=== PATIENT | female | born 1975 | race Caucasian/White ===

== ENCOUNTER → 2016-12-15 | Outpatient (REF) | payer OTHER, MEDICAID ==
[~2016-12-15] MED LIST: ACET50TA PO; CIPR500T89 PO; DIAB2.5T PO; GLYBERIDE PO; IBUP80TA PO; INSUN SC; MOTR200T44 PO; NOVOINJ12 SC; PRENTAB16 PO; SERT-141 PO; TRAZ25TA PO; VITAPRTA PO; XANA0.5T PO; ZOLO50TA PO
== END ==
LOC: M LAB REF 12:44
PROVIDERS: ATTEND Surgery
DX: D23.61 Other benign neoplasm of skin of right upper limb, including shoulder (principal); D23.71 Other benign neoplasm of skin of right lower limb, including hip

== ENCOUNTER → 2017-01-12 | Outpatient (REF) | payer OTHER, MEDICAID ==
[~2017-01-12] MED LIST changes: -SERT-141 PO; +SERT50TA PO
== END ==
LOC: M LAB REF 09:23
PROVIDERS: ATTEND Surgery
DX: D23.62 Other benign neoplasm of skin of left upper limb, including shoulder (principal)

== ENCOUNTER 2018-09-06 12:44 | Emergency (ER) | payer OTHER, BC, SELFPAY, MEDICAID ==
[2018-09-06] MEDS: LIDOCAINE 2% MDV 20 ML VIAL SC (14:30)
== END 2018-09-06 16:03 | disposition home or self-care (01) ==
LOC: M ED 12:44
DX: S61.012A Laceration without foreign body of left thumb without damage to nail, initial encounter (principal); S63.522A Sprain of radiocarpal joint of left wrist, initial encounter; W55.22XA Struck by cow, initial encounter; Y92.89 Other specified places as the place of occurrence of the external cause; Y99.0 Civilian activity done for income or pay; E11.9 Type 2 diabetes mellitus without complications; F41.9 Anxiety disorder, unspecified; I25.2 Old myocardial infarction; Z88.0 Allergy status to penicillin; Z88.2 Allergy status to sulfonamides; Z88.6 Allergy status to analgesic agent; Z88.5 Allergy status to narcotic agent; Z79.899 Other long term (current) drug therapy
CPT/HCPCS: 73110

== ENCOUNTER → 2020-03-11 | Outpatient (CLI) | payer OTHER, SELFPAY ==
[~2020-03-11] MED LIST changes: -ACET50TA PO; +CIPR-249 PO; -CIPR500T89 PO; +CLEO300C2 PO; +MAPA500T2 PO; +SERT-141 PO; -SERT50TA PO; +TRAZ1TAB6 PO; -TRAZ25TA PO; +ZOLO50TA
== END ==
LOC: M LABSMTC 11:32
PROVIDERS: ATTEND Family Medicine
DX: Z11.59 Encounter for screening for other viral diseases (principal); Z20.828 Contact with and (suspected) exposure to other viral communicable diseases
CPT/HCPCS: C9803; U0003

== ENCOUNTER → 2020-03-24 | Outpatient (REF) | LOC: M LAB 10:35 | PROVIDERS: ATTEND Nurse Practitioner Adult Health | DX: Z00.00 Encounter for general adult medical examination without abnormal findings (principal) ==

== ENCOUNTER 2020-04-05 23:46 | Emergency (ER) | payer SELFPAY ==
[~2020-04-05] VITALS: Ht 162.6 cm; Wt 75.0 kg
[2020-04-06 00:57] LABS: BASO % 0.4 % (0.0-1.0); EOS # 0.2 10^3/uL (0.0-0.5); EOS % 2.6 % (0.0-3.0); HEMATOCRIT 37.8 % (36.0-47.0); HEMOGLOBIN 12.5 g/dl (12.0-15.5); LYMPH # 1.9 10^3/uL (1.5-5.0); LYMPH % 23.8 % (24.0-44.0); MEAN CORPUSCULAR HEMOGLOBIN 28.9 pg (27.0-33.0); MEAN CORPUSCULAR HGB CONC 33.1 g/dl (32.0-36.5); MEAN CORPUSCULAR VOLUME 87.3 fl (80.0-96.0); MONO # 1.1 10^3/uL (0.0-0.8); MONO % 13.4 % (0.0-5.0); NEUTROPHILS # 4.7 10^3/uL (1.5-8.5); NEUTROPHILS % 59.5 % (36.0-66.0); PLATELET COUNT, AUTOMATED 299 10^3/uL (150-450); RED BLOOD COUNT 4.33 10^6/uL (4.00-5.40); WHITE BLOOD COUNT 7.8 10^3/uL (4.0-10.0)
[2020-04-06 01:17] LABS: HCG, SERUM QUALITATIVE NEGATIVE (NEGATIVE)
[2020-04-06 01:26] LABS: ALBUMIN 3.5 GM/DL (3.2-5.2); ALT/SGPT 25 U/L (12-78); BILIRUBIN,DIRECT < 0.1 MG/DL (0.0-0.2); BILIRUBIN,TOTAL 0.3 MG/DL (0.2-1.0); BLOOD UREA NITROGEN 14 MG/DL (7-18); CALCIUM LEVEL 8.2 MG/DL (8.5-10.1); CARBON DIOXIDE LEVEL 26 MEQ/L (21-32); CHLORIDE LEVEL 107 MEQ/L (98-107); CREATININE FOR GFR 0.82 MG/DL (0.55-1.30); GLOMERULAR FILTRATION RATE > 60.0 (>58); GLUCOSE, FASTING 111 MG/DL (70-100); LIPASE 53 U/L (73-393); POTASSIUM SERUM 3.7 MEQ/L (3.5-5.1); SODIUM LEVEL 139 MEQ/L (136-145); TOTAL PROTEIN 6.6 GM/DL (6.4-8.2)
[2020-04-06] MEDS ORDERED: NS 1,000 ML IV ONE (03:45)
[2020-04-06] MEDS ORDERED: KETOROLAC 30 MG/ML 1ML VIAL IV ONE (03:45)
[2020-04-06] MEDS ORDERED: ISOVUE-370 76% 100ML VIAL As Ordered ONE (03:50)
--- NOTE | 2020-04-06 04:22 | REPVR ---
PROCEDURE INFORMATION: Exam: CT Abdomen And Pelvis With Contrast Exam date and time: 04/06/2020 3:54 AM Age: 44 years old Clinical indication: Abdominal pain; Additional info: Rlq pain TECHNIQUE: Imaging protocol: Computed tomography of the abdomen and pelvis with intravenous contrast. Radiation optimization: All CT scans at this facility use at least one of these dose optimization techniques: automated exposure control; mA and/or kV adjustment per patient size (includes targeted exams where dose is matched to clinical indication); or iterative reconstruction. Contrast material: ISO 370; Contrast volume: 100 ml; Contrast route: IV; COMPARISON: US OBS FOLLOW UP OR REPEAT 10/27/2015 9:49 AM FINDINGS: Lungs: Slight bibasilar interstitial prominence. Liver: Normal. No mass. Gallbladder and bile ducts: The gallbladder is contracted with no stones. Pancreas: Normal. No ductal dilation. Spleen: Normal. No splenomegaly. Adrenals: Normal. No mass. Kidneys and ureters: Nonobstructing bilateral renal calculi. There is a right renal cyst measuring 9 mm which is difficult to characterize due to small size. Stomach and bowel: Unremarkable. No obstruction. No mucosal thickening. Appendix: A normal appendix is seen. Intraperitoneal space: Unremarkable. No free air. No significant fluid collection. Vasculature: Unremarkable. No abdominal aortic aneurysm. Lymph nodes: Unremarkable. No enlarged lymph nodes. Bladder: Unremarkable as visualized. Reproductive: Left ovarian cyst measuring 3.2 x 3.4 x 2.9 cm. Bones/joints: Unremarkable. No acute fracture. Soft tissues: Unremarkable. IMPRESSION: 1. Nonobstructing bilateral renal calculi. 2. Left ovarian cyst measuring 3.2 x 3.4 x 2.[address] Otherwise negative [address] abdomen/pelvis. A normal appendix is seen. COMMENTS: Consistent with the [employer]'s Incidental Findings Committee white paper (J Am Dimitris Radiol 2018): Any incidental renal lesion less than 1.0 cm or classified as too small to characterize, or any incidental cystic renal lesion characterized as simple-appearing, is likely benign. No follow-up imaging is recommended for these lesions per consensus recommendations based on imaging criteria. Electronically signed by: Lexx Albarran On 04/06/2020 04:21:36 AM
[2020-04-06 06:09] VITALS: BP 117/58
== END 2020-04-06 06:11 | disposition home or self-care (01) ==
LOC: M ED 23:46
DX: R10.31 Right lower quadrant pain (principal); N83.292 Other ovarian cyst, left side; N20.0 Calculus of kidney; Z79.899 Other long term (current) drug therapy; Z88.0 Allergy status to penicillin; Z88.2 Allergy status to sulfonamides; Z88.6 Allergy status to analgesic agent; Z88.5 Allergy status to narcotic agent
CPT/HCPCS: 74177; 80053; 81001; 82248; 83690; 84703; 85025; 96360; 96361; 99284; Q9967

== ENCOUNTER 2020-07-07 12:50 | Observation (INO) | payer SELFPAY ==
[~2020-07-07] VITALS: Ht 162.6 cm; Wt 78.1 kg
--- NOTE | 2020-07-07 13:30 | REPVR ---
PROCEDURE INFORMATION: Exam: CT Head Without Contrast Exam date and time: 07/07/2020 1:16 PM Age: 45 years old Clinical indication: Altered mental status/memory loss; Additional info: AMS TECHNIQUE: Imaging protocol: Computed tomography of the head without contrast. Radiation optimization: All CT scans at this facility use at least one of these dose optimization techniques: automated exposure control; mA and/or kV adjustment per patient size (includes targeted exams where dose is matched to clinical indication); or iterative reconstruction. Other technique: STROKE PROTOCOL was implemented. COMPARISON: No relevant prior studies available. FINDINGS: Brain: Normal. No hemorrhage. Unremarkable white matter. No mass effect. Ventricles: Normal. No ventriculomegaly. Bones/joints: Unremarkable. No acute fracture. Sinuses: There is mild right maxillary sinus mucosal thickening. Mastoid air cells: Visualized mastoid air cells are well aerated. Soft tissues: Unremarkable. IMPRESSION: No acute hemorrhage or edema. ASSESSMENT: ASPECTS ([place] Stroke Program Early CT Score) is 10. Electronically signed by: Malini Varghese On 07/07/2020 13:30:13 PM
[2020-07-07 13:39] VITALS: BP 138/87
[2020-07-07 14:01] LABS: BASO # 0.1 10^3/uL (0.0-0.2); BASO % 0.5 % (0.0-1.0); EOS # 0.1 10^3/uL (0.0-0.5); EOS % 1.3 % (0.0-3.0); HEMATOCRIT 39.9 % (36.0-47.0); HEMOGLOBIN 13.3 g/dl (12.0-15.5); LYMPH # 1.8 10^3/uL (1.5-5.0); LYMPH % 18.8 % (24.0-44.0); MEAN CORPUSCULAR HEMOGLOBIN 29.3 pg (27.0-33.0); MEAN CORPUSCULAR HGB CONC 33.3 g/dl (32.0-36.5); MEAN CORPUSCULAR VOLUME 87.9 fl (80.0-96.0); MONO # 0.8 10^3/uL (0.0-0.8); MONO % 8.7 % (0.0-5.0); NEUTROPHILS # 6.8 10^3/uL (1.5-8.5); NEUTROPHILS % 70.3 % (36.0-66.0); PLATELET COUNT, AUTOMATED 377 10^3/uL (150-450); RED BLOOD COUNT 4.54 10^6/uL (4.00-5.40); WHITE BLOOD COUNT 9.7 10^3/uL (4.0-10.0)
[2020-07-07 14:15] LABS: PROTHROMBIN TIME 13.4 SECONDS (11.8-14.0)
[2020-07-07 14:16] LABS: PARTIAL THROMBOPLASTIN TIME 27.5 SECONDS (25.0-38.4)
[2020-07-07] MEDS ORDERED: ISOVUE-370 76% 100ML VIAL As Ordered ONE (14:16)
[2020-07-07 14:25] LABS: BLOOD UREA NITROGEN 10 MG/DL (7-18); CARBON DIOXIDE LEVEL 24 MEQ/L (21-32); CHLORIDE LEVEL 109 MEQ/L (98-107); CK-MB VALUE MASS < 1.0 NG/ML (<3.6); CPK CREATINE PHOSPHOKINASE 72 U/L (26-192); GLOMERULAR FILTRATION RATE > 60.0 (>58); GLUCOSE, FASTING 115 MG/DL (70-100); MB/CK RELATIVE INDEX 1.39 (< OR =4); POTASSIUM SERUM 3.7 MEQ/L (3.5-5.1); SODIUM LEVEL 141 MEQ/L (136-145); TROPONIN I < 0.02 NG/ML (< 0.10)
--- NOTE | 2020-07-07 14:41 | REPVR ---
PROCEDURE INFORMATION: Exam: CT Angiography Head With Contrast Exam date and time: 07/07/2020 2:22 PM Age: 45 years old Clinical indication: Other: Neuro; Additional info: Neuro symptoms TECHNIQUE: Imaging protocol: Computed tomography angiography of the head with intravenous contrast. 3D rendering (Not supervised by radiologist): MIP and/or 3D reconstructed images were created by the technologist. Radiation optimization: All CT scans at this facility use at least one of these dose optimization techniques: automated exposure control; mA and/or kV adjustment per patient size (includes targeted exams where dose is matched to clinical indication); or iterative reconstruction. Contrast material: ISOVUE 370; Contrast volume: 100 ml; Contrast route: INTRAVENOUS (IV); COMPARISON: CT Head without contrast 07/07/2020 1:11 PM FINDINGS: ANTERIOR CIRCULATION: Right internal carotid artery: Unremarkable. Intracranial segment is patent with no significant stenosis. No aneurysm. Right middle cerebral artery: Unremarkable. No occlusion or significant stenosis. No aneurysm. Right anterior cerebral artery: Unremarkable. No occlusion or significant stenosis. No aneurysm. Left internal carotid artery: Unremarkable. Intracranial segment is patent with no significant stenosis. No aneurysm. Left middle cerebral artery: Unremarkable. No occlusion or significant stenosis. No aneurysm. Left anterior cerebral artery: Unremarkable. No occlusion or significant stenosis. No aneurysm. POSTERIOR CIRCULATION: Right vertebral artery: Unremarkable. No occlusion or significant stenosis. No aneurysm. Left vertebral artery: The left vertebral artery is dominant. No occlusion or significant stenosis. No aneurysm. Basilar artery: Unremarkable. No occlusion or significant stenosis. No aneurysm. Right posterior cerebral artery: Unremarkable. No occlusion or significant stenosis. No aneurysm. Left posterior cerebral artery: Unremarkable. No occlusion or significant stenosis. No aneurysm. IMPRESSION: No large vessel stenosis or occlusion. Electronically signed by: Malini Varghese On 07/07/2020 14:41:07 PM
--- NOTE | 2020-07-07 14:46 | REPVR ---
PROCEDURE INFORMATION: Exam: CT Angiography Neck With Contrast Exam date and time: 07/07/2020 2:22 PM Age: 45 years old Clinical indication: Other: Neuro; Additional info: Neuro symptoms TECHNIQUE: Imaging protocol: Computed tomography angiography of the neck with intravenous contrast. 3D rendering (Not supervised by radiologist): MIP and/or 3D reconstructed images were created by the technologist. Radiation optimization: All CT scans at this facility use at least one of these dose optimization techniques: automated exposure control; mA and/or kV adjustment per patient size (includes targeted exams where dose is matched to clinical indication); or iterative reconstruction. Contrast material: ISOVUE 370; Contrast volume: 100 ml; Contrast route: INTRAVENOUS (IV); COMPARISON: No relevant prior studies available. FINDINGS: Right common carotid artery: No stenosis. No dissection or occlusion. Right internal carotid artery: No stenosis of the extracranial segment. No dissection or occlusion. Right external carotid artery: No occlusion or stenosis of the origin. Right vertebral artery: The right vertebral artery is diffusely diminutive, presumably a normal anatomic variant. There is suspected occlusion of the right distal cervical vertebral artery at the C1/C2 level. Left common carotid artery: No stenosis. No dissection or occlusion. Left internal carotid artery: No stenosis of the extracranial segment. No dissection or occlusion. Left external carotid artery: No occlusion or stenosis of the origin. Left vertebral artery: The left vertebral artery is dominant. Other vasculature: There is some recanalization of the will cervical and intradural portions. The distal intradural segment is not well visualized. But this could potentially reflect small vessel caliber. Bones/joints: No acute fracture. Soft tissues: Normal. No significant soft tissue swelling. IMPRESSION: Diminutive right vertebral artery is presumably a normal anatomic variant. There is apparent occlusion of the distal cervical vertebral artery with some recanalization at the C1 level. There may be occlusion of the distal intradural vertebral artery versus artifact. REFERENCES: NASCET CRITERIA. The degree of internal carotid artery stenosis is based on NASCET criteria. Normal is no stenosis. Mild is less than 50% stenosis. Moderate is 50-69% stenosis. Severe is 70% to 99% stenosis. Total occlusion is no detectable patent lumen. Electronically signed by: Malini Varghese On 07/07/2020 14:46:05 PM
--- NOTE | 2020-07-07 15:31 | REPVR ---
PROCEDURE INFORMATION: Exam: XR Chest, 1 View Exam date and time: 07/07/2020 3:10 PM Age: 45 years old Clinical indication: Other: Question CVA TECHNIQUE: Imaging protocol: XR of the chest Views: 1 view. COMPARISON: No relevant prior studies available. FINDINGS: Lungs: A number of small subsegmental atelectases are present in the lateral left lung base, otherwise both lungs are relatively well-aerated. Pleural space: Unremarkable. No pleural effusion. No pneumothorax. Heart/Mediastinum: The heart size is normal. Bones/joints: Unremarkable. IMPRESSION: 1. A number of small subsegmental atelectases are present in the lateral left lung base, otherwise both lungs are relatively well-aerated. 2. The heart size is normal. Electronically signed by: Kosta Arciniega On 07/07/2020 15:31:17 PM
[2020-07-07] MEDS ORDERED: SERT-138 PO (16:38)
[2020-07-07] MEDS ORDERED: CLOPIDOGREL 75 MG TAB PO ONE (16:45)
[2020-07-07] MEDS ORDERED: ACETAMINOPHEN TAB 650MG DOSE (2X325MG) PO PRN (17:15)
--- NOTE | 2020-07-07 17:33 | HPEPDOC ---
[facility] Medical History & Physical Date of Admission Jul 07, 2020 Date of Service: Jul 07, 2020 History and Physical Chief complaint: Who presented to the ER with stuttering speech History of present illness: Patient is a 45 year old female with a PMHx of Prior history of DM2 (s/p insulin), Depression / Anxiety, Hx of Renal stones (s/p ureteral stents) who presented to the ER after experiencing stuttering of her speech this morning. Patient noted that over the last 2 days she has been having twitching of her RUE extremity that progressed down to her RLE, then LLE and neck. Patient continued her day until today she began to have stuttering of her speech and difficulty expressing herself. 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 Patient had a CT scan completed which was non-revealing for hemorrhage / acute findings. Hospitalist service was contacted for admission. Currently patient denies any headache, nausea, vomiting, chest pain, shortness of breath, abdominal pain, constipation, diarrhea or urinary discomfort. They deny any recent fevers / chills. Patient notes their appetite is normal. Deny any changes in weight. 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 Review of Systems: 10 point review of systems complete, all negative otherwise stated in HPI Physical exam: - Vitals: BP [138/87], HR [94], RR [16], Sat [100%RA], Temp [98.2F] - General: Lying in bed, Speaking in full sentences, but stuttering / speaking slow, AAOx3 - HEENT: NC, AT, PERRLA - CVS: RRR, +S1S2 - Lungs: Fair air entry bilaterally, No appreciable wheezing / rales / rhonchi - Abdomen: Soft, Non-distended, Non-tender - Extremities No lower extremity edema, No calf tenderness - Neuro: 4/5 strength at RUE / RLE, 5/5 at LUE and LLE - Skin: No visible rashes Assessment and Plan: RUE & RLE weakness / twitching / stuttered speech - possibly 2/2 CVA, possibly 2/2 seizure? - Patient presented to the ER with stuttering of speech and 2 day history of twitching - Currently has weakness of RUE/RLE at 4/5 - EKG reviewed; Troponin x 1 set negative; will trend - CT head 07/07: No acute hemorrhage or edema. - CTA head 07/07: No large vessel stenosis or occlusion. - CTA neck 07/07: Diminutive right vertebral artery is presumably a normal anatomic variant. There is apparent occlusion of the distal cervical vertebral artery with some recanalization at the C1 level. There may be occlusion of the distal intradural vertebral artery versus artifact. - Will get MRI / MRA brain, Duplex carotid, ECHO, Telemetry monitoring, EEG, Cardiac risk profile - Will c/w Plavix and start Statin - Will get PT / OT / ARU screen - Will consult neuro based on MRI results Atelectasis - CXR 07/07: 1. A number of small subsegmental atelectases are present in the lateral left lung base, otherwise both lungs are relatively well-aerated. 2. The heart size is normal. - Will start incentive spirometry Prior history of DM2 - s/p insulin - Will c/w consistent carbohydrate diet Depression / Anxiety - c/w Sertraline Hx of Renal stones - s/p ureteral stents DVT prophylaxis - Will start Lovenox Vital Signs Vital Signs Date Time Temp Pulse Resp B/P (MAP) Pulse Ox O2 Delivery O2 Flow Rate FiO2 07/07/20 14:08 07/07/20 13:39 98.2 94 16 100 Room Air Laboratory Data Labs 24H Laboratory Tests 2 07/07/20 13:34: Immature Granulocyte % (Auto) 0.4, Neutrophils (%) (Auto) 70.3H, Lymphocytes (%) (Auto) 18.8L, Monocytes (%) (Auto) 8.7H, Eosinophils (%) (Auto) 1.3, Basophils (%) (Auto) 0.5, Neutrophils # (Auto) 6.8, Lymphocytes # (Auto) 1.8, Monocytes # (Auto) 0.8, Eosinophils # (Auto) 0.1, Basophils # (Auto) 0.1, Nucleated Red Blood Cells % (auto) 0.0, Prothrombin Time 13.4, Prothromb Time International Ratio 1.00, Activated Partial Thromboplast Time 27.5, Anion Gap 8, Glomerular Filtration Rate > 60.0, Calcium Level 9.0, Total Creatine Kinase 72, Creatine Kinase MB < 1.0, Creatine Kinase MB Relative Index 1.39, Troponin I < 0.02 CBC/BMP Laboratory Tests 07/07/20 13:34 Home Medications Scheduled Doxycycline Monohydrate (Doxycycline) 100 Mg Capsule, 1 CAP PO BID Pravastatin Sodium (Pravachol) 20 Mg Tablet, 40 MG PO QHS Sertraline HCl (Sertraline HCl) 100 Mg Tablet, 100 MG PO DAILY Allergies Coded Allergies: Penicillins (Verified Allergy, Severe, 07/07/20) hives Sulfa (Sulfonamide Antibiotics) (Verified Allergy, Severe, 07/07/20) hives aspirin (Verified Allergy, Severe, 07/07/20) codeine (Verified Allergy, Severe, 07/07/20) metal issues morphine (Verified Allergy, Severe, 07/07/20) mental issues A-FIB/CHADSVASC A-FIB History Current/History of A-Fib/PAF?: No PEDRO RATLIFF MD Jul 07, 2020 17:33
[2020-07-07 18:21] LABS: AMPHETAMINES LEVEL URINE NEGATIVE (NEGATIVE); BARBITURATES URINE NEGATIVE (NEGATIVE); BENZODIAZEPINES URINE NEGATIVE (NEGATIVE); CANNABINOIDS URINE NEGATIVE (NEGATIVE); COCAINE METABOLITE URINE NEGATIVE (NEGATIVE); METHADONE URINE NEGATIVE (NEGATIVE); OPIATES URINE NEGATIVE (NEGATIVE); PHENCYCLIDINE URINE NEGATIVE (NEGATIVE)
--- NOTE | 2020-07-07 18:56 | REPVR ---
PROCEDURE INFORMATION: Exam: US Duplex Bilateral Extracranial Arteries Exam date and time: 07/07/2020 6:27 PM Age: 45 years old Clinical indication: Other: TIA; Additional info: CVA TECHNIQUE: Imaging protocol: Real-time Duplex ultrasound scan of the bilateral carotid and vertebral arteries combining boateng scale, color Doppler and spectral waveform analysis. Bilateral exam. COMPARISON: CT Head without contrast 07/07/2020 1:11 PM FINDINGS: Right common carotid artery: Unremarkable. No occlusion or stenosis. Waveforms are normal. Right internal carotid artery: Unremarkable. No occlusion or stenosis. Waveforms are normal. Right ICA/CCA ratio: Within normal limits, measuring 0.88. Right external carotid artery: No stenosis in the origin. Right vertebral artery: Unremarkable. Low resistance antegrade flow. Left common carotid artery: Unremarkable. No occlusion or stenosis. Waveforms are normal. Left internal carotid artery: Unremarkable. No occlusion or stenosis. Waveforms are normal. Left ICA/CCA ratio: Within normal limits, measuring 0.80. Left external carotid artery: No stenosis in the origin. Left vertebral artery: Unremarkable. Low resistance antegrade flow. IMPRESSION: No carotid arterial stenosis. Normal study. REFERENCES: SRU CRITERIA. The degree of internal carotid artery stenosis is based on criteria defined by the Society of Radiologists in Ultrasound (SRU). Normal is no stenosis. Mild is less than 50% stenosis. Moderate is 50-69% stenosis. Severe is greater than 69% stenosis to near occlusion. Near occlusion is a markedly narrowed lumen. Total occlusion is no detectable patent lumen. Electronically signed by: Kosta Arciniega On 07/07/2020 18:56:26 PM
[2020-07-07 19:25] LABS: CK-MB VALUE MASS < 1.0 NG/ML (<3.6); CPK CREATINE PHOSPHOKINASE 59 U/L (26-192); MB/CK RELATIVE INDEX 1.69 (< OR =4); TROPONIN I < 0.02 NG/ML (< 0.10)
--- NOTE | 2020-07-07 19:56 | REPVR ---
PROCEDURE INFORMATION: Exam: MR Head Without Contrast Exam date and time: 07/07/2020 7:28 PM Age: 45 years old Clinical indication: Weakness, extremity; Right; Additional info: Rue / rle weakness TECHNIQUE: Imaging protocol: MR of the head without contrast. COMPARISON: CT Head without contrast 07/07/2020 1:11 PM FINDINGS: Brain: No acute infarct or intracerebral bleed. A few scattered foci of periventricular leukomalacia are seen in both cerebral hemispheres, consistent most likely with chronic underlying small vessel ischemic disease. The position, size and shape of the cerebellar tonsils are normal. The vestibulocochlear complexes bilaterally are normal. Normal base of skull vasculature flow voids. The mesial temporal lobes and hippocampal regions are normal. Ventricles: Normal. No ventriculomegaly. Bones/joints: Unremarkable. Sinuses: Moderate mucosal thickening is present in the right frontoethmoid sinuses and the right maxillary sinus. No acute sinusitis. Mastoid air cells: Normal as visualized. No mastoid effusion. Orbits: Unremarkable. Soft tissues: Unremarkable. IMPRESSION: 1. No acute infarct or intracerebral bleed. 2. A few scattered foci of periventricular leukomalacia are seen in both cerebral hemispheres, consistent most likely with chronic underlying small vessel ischemic disease. 3. Moderate mucosal thickening is present in the right frontoethmoid sinuses and the right maxillary sinus. Electronically signed by: Kosta Arciniega On 07/07/2020 19:56:03 PM
--- NOTE | 2020-07-07 20:00 | REPVR ---
PROCEDURE INFORMATION: Exam: MR Angiogram Head Without Contrast, Arteries Exam date and time: 07/07/2020 7:28 PM Age: 45 years old Clinical indication: Weakness; Additional info: Rue / rle weakness TECHNIQUE: Imaging protocol: MR angiogram head without contrast. Exam focused on the arteries. COMPARISON: CT ANGIO HEAD 07/07/2020 2:14 PM FINDINGS: ANTERIOR CIRCULATION: Right internal carotid artery: Intracranial segment is patent with no significant stenosis. No aneurysm. Right middle cerebral artery: No occlusion or significant stenosis. No aneurysm. Right anterior cerebral artery: No occlusion or significant stenosis. No aneurysm. Left internal carotid artery: Intracranial segment is patent with no significant stenosis. No aneurysm. Left middle cerebral artery: No occlusion or significant stenosis. No aneurysm. Left anterior cerebral artery: No occlusion or significant stenosis. No aneurysm. POSTERIOR CIRCULATION: Right vertebral artery: The right vertebral artery is small, likely a congenital normal variant. No occlusion or significant stenosis. No aneurysm. Left vertebral artery: The left vertebral artery is dominant, a normal variant. No occlusion or significant stenosis. No aneurysm. Basilar artery: No occlusion or significant stenosis. No aneurysm. Right posterior cerebral artery: No occlusion or significant stenosis. No aneurysm. Left posterior cerebral artery: No occlusion or significant stenosis. No aneurysm. IMPRESSION: No stenosis or occlusion in the intracerebral arterial vasculature. No large vessel occlusion identified. Electronically signed by: Kosta Arciniega On 07/07/2020 20:00:03 PM
[2020-07-07] MEDS ORDERED: PRAVASTATIN 20 MG TAB PO SCH (21:00)
[2020-07-07 22:23] VITALS: BP 122/70
[2020-07-08] MEDS ORDERED: SLF 3 ML SYR IV PRN (00:45)
[2020-07-08 02:09] LABS: CK-MB VALUE MASS < 1.0 NG/ML (<3.6); CPK CREATINE PHOSPHOKINASE 46 U/L (26-192); MB/CK RELATIVE INDEX 2.17 (< OR =4); TROPONIN I < 0.02 NG/ML (< 0.10)
[2020-07-08 04:00] VITALS: BP 120/75
[2020-07-08 04:43] LABS: BASO % 0.4 % (0.0-1.0); EOS # 0.2 10^3/uL (0.0-0.5); EOS % 1.4 % (0.0-3.0); HEMATOCRIT 37.4 % (36.0-47.0); HEMOGLOBIN 12.3 g/dl (12.0-15.5); LYMPH # 1.7 10^3/uL (1.5-5.0); LYMPH % 15.1 % (24.0-44.0); MEAN CORPUSCULAR HEMOGLOBIN 29.4 pg (27.0-33.0); MEAN CORPUSCULAR HGB CONC 32.9 g/dl (32.0-36.5); MEAN CORPUSCULAR VOLUME 89.5 fl (80.0-96.0); MONO # 0.9 10^3/uL (0.0-0.8); MONO % 8.5 % (0.0-5.0); NEUTROPHILS # 8.2 10^3/uL (1.5-8.5); NEUTROPHILS % 74.1 % (36.0-66.0); PLATELET COUNT, AUTOMATED 370 10^3/uL (150-450); RED BLOOD COUNT 4.18 10^6/uL (4.00-5.40)
[2020-07-08 05:10] LABS: BLOOD UREA NITROGEN 8 MG/DL (7-18); CALCIUM LEVEL 8.4 MG/DL (8.5-10.1); CARBON DIOXIDE LEVEL 28 MEQ/L (21-32); CHLORIDE LEVEL 108 MEQ/L (98-107); CHOLESTEROL LEVEL 154 MG/DL (<200); CREATININE FOR GFR 0.69 MG/DL (0.55-1.30); GLOMERULAR FILTRATION RATE > 60.0 (>58); GLUCOSE, FASTING 106 MG/DL (70-100); HDL CHOLESTEROL 55 MG/DL (>40); LDL CHOLESTEROL 72 MG/DL (<100); NON-HDL-C 99 MG/DL; POTASSIUM SERUM 3.4 MEQ/L (3.5-5.1); SODIUM LEVEL 139 MEQ/L (136-145); TRIGLYCERIDES LEVEL 136 MG/DL (<150)
[2020-07-08] MEDS ORDERED: SLF 3 ML SYR IV SCH (06:00)
[2020-07-08] MEDS ORDERED: POTASSIUM CHLORIDE 10 MEQ SR TABLET PO ONE (07:30)
[2020-07-08 07:57] VITALS: BP 121/73
[2020-07-08] MEDS ORDERED: SERTRALINE 100 MG TAB PO SCH (09:00)
[2020-07-08] MEDS ORDERED: ENOXAPARIN 40MG/0.4ML SYRINGE (J1650 PER 10MG) SC SCH (09:00)
[2020-07-08] MEDS ORDERED: DOXYCYCLINE HYCLATE 100MG TABLET PO SCH (09:00)
[2020-07-08] MEDS ORDERED: CLOPIDOGREL 75 MG TAB PO SCH (09:00)
--- NOTE | 2020-07-08 10:30 | IPNPDOC ---
Text Note Date of Service The patient was seen on 07/08/20. NOTE Subjective: Patient is a 45 year old female with a PMHx of Prior history of DM2 (s/p insulin), Depression / Anxiety, Hx of Renal stones (s/p ureteral stents) who presented to the ER after experiencing stuttering of her speech this morning. In the ER patient was outside the window to receive tPA, she was noted to have RUE/RLE weakness and negative CT head. She was admitted to the hospitalist service for further evaluation and treatment. Case was discussed with Neurology who have recommended Plavix / Statin until results of MRI were available. Patient was seen and examined at the bedside. Currently she reports she feels a litter better. Denies any CP, SOB, palpitations, N/V, abdominal pain, C/D or urinary discomfort. Patient notes that she is having an easier time with expressing her self / speaking. Objective: Vitals (See below) General: Lying in bed, appears comfortable, AAOx3 HEENT: NC, AT CVS: RRR, +S1S2 Lungs: Fair air entry b/l, -w/r/r Abdomen: Soft, ND, NT Extremities: No edema, - Calf tenderness Neuro: 4/5 strength at RUE/RLE, 5/5 at LUE/LLE Assessment and plan: RUE & RLE weakness / twitching / stuttered speech - possibly 2/2 CVA, possibly 2/2 seizure? - Patient presented to the ER with stuttering of speech and 2 day history of twitching - Currently has weakness of RUE/RLE at 4/5 - EKG reviewed; Troponin x 3 negative - Cardiac risk profile reviewed - CT head 07/07: No acute hemorrhage or edema. - CTA head 07/07: No large vessel stenosis or occlusion. - CTA neck 07/07: Diminutive right vertebral artery is presumably a normal anatomic variant. There is apparent occlusion of the distal cervical vertebral artery with some recanalization at the C1 level. There may be occlusion of the distal intradural vertebral artery versus artifact. - MRI brain (07/07): 1. No acute infarct or intracerebral bleed. 2. A few scattered foci of periventricular leukomalacia are seen in both cerebral hemispheres, consistent most likely with chronic underlying small vessel ischemic disease. 3. Moderate mucosal thickening is present in the right frontoethmoid sinuses and the right maxillary sinus. - MRA brain (07/07): No stenosis or occlusion in the intracerebral arterial vasculature. No large vessel occlusion identified. - Duplex Carotid US (07/07): No carotid arterial stenosis. Normal study. - ECHO and EEG - remain pending - Will get MRI Cervical spine - Will discontinue Plavix (re: no evidence of stroke / change in symptoms); c/w Statin - c/w PT / OT / ARU screen Atelectasis - CXR 07/07: 1. A number of small subsegmental atelectases are present in the lateral left lung base, otherwise both lungs are relatively well-aerated. 2. The heart size is normal. - c/w incentive spirometry Prior history of DM2 - s/p insulin - c/w consistent carbohydrate diet Depression / Anxiety - c/w Sertraline Hx of Renal stones - s/p ureteral stents DVT prophylaxis - c/w Lovenox VS,Fishbone, I+O VS, Fishbone, I+O Laboratory Tests 07/07/20 13:34 07/08/20 04:12 Vital Signs Date Time Temp Pulse Resp B/P (MAP) Pulse Ox O2 Delivery O2 Flow Rate FiO2 07/08/20 07:57 98.6 61 16 121/73 (89) 97 Room Air I&O- Last 24 Hours up to 6 AM 07/08/20 06:00 Intake Total 120 ml Output Total 300 ml Balance -180 ml PEDRO RATLIFF MD Jul 08, 2020 10:30
[2020-07-08 11:37] VITALS: BP 133/70
--- NOTE | 2020-07-08 12:21 | REPVR ---
PROCEDURE INFORMATION: Exam: MR Cervical Spine Without Contrast Exam date and time: 07/08/2020 10:58 AM Age: 45 years old Clinical indication: Patient HX: Right sided weakness; Additional info: Without contrast; Right ue/le weakness TECHNIQUE: Imaging protocol: Multiplanar magnetic resonance images of the cervical spine without contrast. COMPARISON: CT ANGIO NECK 07/07/2020 2:14 PM FINDINGS: Vertebrae: There is no fracture or listhesis. Normal vertebral body alignment and heights are preserved. Spinal cord: Normal signal. No cord compression. C2-C3: No significant disc disease. No significant spinal stenosis. C3-C4: There is a shallow disc osteophyte complex asymmetric to left. There is mild facet hypertrophy. There is mild right and moderate left neural foraminal narrowing. C4-C5: There is a shallow disc osteophyte complex. There is moderate facet hypertrophy. There is moderate to severe right and mild left neural foraminal narrowing. C5-C6: There is a diffuse disc osteophyte complex asymmetric to the left. There is mild facet hypertrophy. There is moderate to severe left neural foraminal narrowing. C6-C7: There is a shallow disc osteophyte complex. There is mild facet hypertrophy. There is mild left neural foraminal narrowing. C7-T1: No significant disc disease. No significant spinal stenosis. Vertebral arteries: Expected flow voids in the vertebral arteries. Soft tissues: Unremarkable. IMPRESSION: Degenerative disc disease and spondylosis as described. At C4/5, there is moderate to severe right neural foraminal narrowing. At C5/6 there is moderate to severe left neural foraminal narrowing. Electronically signed by: Malini Varghese On 07/08/2020 12:21:06 PM
[2020-07-08] MEDS ORDERED: PRAV1TAB39 PO (12:58)
[2020-07-08] MEDS ORDERED: DOXY-350 PO (12:58)
--- NOTE | 2020-07-08 14:23 | DS.PDOC ---
Discharge Summary General Date of Admission Jul 07, 2020 at 17:09 Date of Discharge 07/08/2020 Discharge Summary PROCEDURES PERFORMED DURING STAY: [None]. ADMITTING DIAGNOSES / DISCHARGE DIAGNOSES: RUE & RLE weakness / twitching / stuttered speech - unlikely 2/2 CVA, unlikely 2/2 seizure, possibly Lyme? Atelectasis Prior history of DM2 Depression / Anxiety Hx of Renal stones DVT prophylaxis COMPLICATIONS/CHIEF COMPLAINT: Weakness. HISTORY OF PRESENT ILLNESS: Patient is a 45 year old female with a PMHx of Prior history of DM2 (s/p insulin), Depression / Anxiety, Hx of Renal stones (s/p ureteral stents) who presented to the ER after experiencing stuttering of her speech this morning. In the ER patient was outside the window to receive tPA, she was noted to have RUE/RLE weakness and negative CT head. She was admitted to the hospitalist service for further evaluation and treatment. Case was discussed with Neurology who have recommended Plavix / Statin until results of MRI were available. Patient was seen and examined at the bedside. Currently she reports she feels a litter better. Denies any CP, SOB, palpitations, N/V, abdominal pain, C/D or urinary discomfort. Patient notes that she is having an easier time with expressing her self / speaking. HOSPITAL COURSE: RUE & RLE weakness / twitching / stuttered speech - unlikely 2/2 CVA, unlikely 2/2 seizure, possibly Lyme? - Patient presented to the ER with stuttering of speech and 2 day history of twitching - Currently has weakness of RUE/RLE at 4/5 - EKG reviewed; Troponin x 3 negative - Cardiac risk profile reviewed - CT head 07/07: No acute hemorrhage or edema. - CTA head 07/07: No large vessel stenosis or occlusion. - CTA neck 07/07: Diminutive right vertebral artery is presumably a normal anatomic variant. There is apparent occlusion of the distal cervical vertebral artery with some recanalization at the C1 level. There may be occlusion of the distal intradural vertebral artery versus artifact. - MRI brain (07/07): 1. No acute infarct or intracerebral bleed. 2. A few scattered foci of periventricular leukomalacia are seen in both cerebral hemispheres, consistent most likely with chronic underlying small vessel i schemic disease. 3. Moderate mucosal thickening is present in the right frontoethmoid sinuses and the right maxillary sinus. - MRA brain (07/07): No stenosis or occlusion in the intracerebral arterial vasculature. No large vessel occlusion identified. - Duplex Carotid US (07/07): No carotid arterial stenosis. Normal study. - MRI Cervical spine 07/08: Degenerative disc disease and spondylosis as descri bed. At C4/5, there is moderate to severe right neural foraminal narrowing. At C5/6 there is moderate to severe left neural foraminal narrowing. - ECHO and EEG - remain pending - Discontinued Plavix (re: no evidence of stroke / change in symptoms); c/w Statin - c/w PT / OT / ARU screen - Discussed case with Neurology including the above imaging findings; will have outpatient follow up with neurology for EEG results and nerve conduction testing - Tested for lyme disease and started empiric treatment with Doxycycline; will have outpatient follow up with PCP within 7 days Atelectasis - CXR 07/07: 1. A number of small subsegmental atelectases are present in the lateral left lung base, otherwise both lungs are relatively well-aerated. 2. The heart size is normal. - c/w incentive spirometry Prior history of DM2 - s/p insulin - c/w consistent carbohydrate diet Depression / Anxiety - c/w Sertraline Hx of Renal stones - s/p ureteral stents DVT prophylaxis - c/w Lovenox DISCHARGE MEDICATIONS: Please see below. ALLERGIES: Please see below. PHYSICAL EXAMINATION ON DISCHARGE: Vitals (See below) General: Lying in bed, appears comfortable, AAOx3 HEENT: NC, AT CVS: RRR, +S1S2 Lungs: Fair air entry b/l, -w/r/r Abdomen: Soft, ND, NT Extremities: No edema, - Calf tenderness Neuro: 4/5 strength at RUE/RLE, 5/5 at LUE/LLE LABORATORY DATA: Please see below. ACTIVITY: [As tolerated]. DISCHARGE PLAN: Follow up with PCP, Neurology and Psychiatry within 7 days Remain compliant with treatment plan and medications Return to the ER if you experience any problems DISPOSITION: Home DISCHARGE CONDITION: [Stable]. TIME SPENT ON DISCHARGE: 35 minutes. Vital Signs/I&Os Vital Signs Date Time Temp Pulse Resp B/P (MAP) Pulse Ox O2 Delivery O2 Flow Rate FiO2 07/08/20 11:37 97.3 68 16 133/70 (91) 98 Room Air I&O- Last 24 Hours up to 6 AM 07/08/20 06:00 Intake Total 120 ml Output Total 300 ml Balance -180 ml Laboratory Data Labs 24H Laboratory Tests 2 07/07/20 17:38: Urine Color COLORLESS, Urine Appearance CLEAR, Urine pH 6.0, Urine Specific Pillager 1.018, Urine Protein NEGATIVE, Urine Glucose (UA) NEGATIVE, Urine Ketones NEGATIVE, Urine Blood NEGATIVE, Urine Nitrite NEGATIVE, Urine Bilirubin NEGATIVE, Urine Urobilinogen 0.2, Urine Leukocyte Esterase NEGATIVE, Urine WBC (Auto) 2, Urine RBC (Auto) 1, Urine Hyaline Casts (Auto) 0, Urine Bacteria (Auto) NEGATIVE, Urine Squamous Epithelial Cells 0, Urine Sperm (Auto) , Urine O piates Screen NEGATIVE, Urine Methadone Screen NEGATIVE, Urine Barbiturates Screen NEGATIVE, Urine Phencyclidine Screen NEGATIVE, Urine Amphetamines Screen NEGATIVE, Urine Benzodiazepines Screen NEGATIVE, Urine Cocaine Metabolite Screen NEGATIVE, Urine Cannabinoids Screen NEGATIVE 07/07/20 18:43: Total Creatine Kinase 59, Creatine Kinase MB < 1.0, Creatine Kinase MB Relative Index 1.69, Troponin I < 0.02 07/08/20 01:26: Total Creatine Kinase 46, Creatine Kinase MB < 1.0, Creatine Kinase MB Relative Index 2.17, Troponin I < 0.02 07/08/20 04:12: Immature Granulocyte % (Auto) 0.5, Neutrophils (%) (Auto) 74.1H, Lymphocytes (%) (Auto) 15.1L, Monocytes (%) (Auto) 8.5H, Eosinophils (%) (Auto) 1.4, Basophils (%) (Auto) 0.4, Neutrophils # (Auto) 8.2, Lymphocytes # (Auto) 1.7, Monocytes # (Auto) 0.9H, Eosinophils # (Auto) 0.2, Basophils # (Auto) 0.0, Nucleated Red Blood Cells % (auto) 0.0, Anion Gap 3L, Glomerular Filtration Rate > 60.0, Calcium Level 8.4L, Magnesium Level 2.0, Triglycerides Level 136, Total Cholesterol 154, LDL Cholesterol 72, Non-HDL Cholesterol (LDL + VLDL) 99, Total HDL Cholesterol 55, Cholesterol/HDL Ratio 2.800 CBC/BMP Laboratory Tests 07/08/20 04:12 Discharge Medications Scheduled Doxycycline Monohydrate (Doxycycline) 100 Mg Capsule, 1 CAP PO BID Pravastatin Sodium (Pravachol) 20 Mg Tablet, 40 MG PO QHS Sertraline HCl (Sertraline HCl) 100 Mg Tablet, 100 MG PO DAILY, (Reported) Allergies Coded Allergies: Penicillins (Verified Allergy, Severe, 07/07/20) hives Sulfa (Sulfonamide Antibiotics) (Verified Allergy, Severe, 07/07/20) hives aspirin (Verified Allergy, Severe, 07/07/20) codeine (Verified Allergy, Severe, 07/07/20) metal issues morphine (Verified Allergy, Severe, 07/07/20) mental issues PEDRO RATLIFF MD Jul 08, 2020 14:23
[2020-07-10 18:09] LABS: Lyme Disease IgG/IgM Antibodie <0.91 ISR (0.00-0.90); Lyme Disease IgM Ab Quantitati <0.80 index (0.00-0.79)
--- NOTE | 2020-07-13 06:58 | EEG ---
DATE: 07/08/2020 REFERRING PHYSICIAN: Miroslava Vásquez MD DIAGNOSIS: Seizure EEG #: [id number] HISTORY: The patient is a 45-year-old woman who was admitted at [facility] due to stuttering speech, twitching for several days. Twitching spreads to her body. This electroencephalogram (EEG) was done to rule out epileptic potential. She is currently taking Plavix, pravastatin, Zoloft, etc. TECHNICAL DESCRIPTION: This digital electroencephalogram (EEG) was recorded by 21 scalp, ear and two electrocardiogram (EKG) electrodes and was reviewed in bipolar and referential montages following reformatting in 10-20 international electrode placement system. INTERPRETATION: The patient was noted to be in mostly drowsy and sleep state during this electroencephalogram (EEG). Resting background rhythm consisted of 8 Hz alpha activity measuring 15-40 microvolts in amplitude, which was symmetric and reactive to eye opening. Attenuation of posterior dominant rhythm was seen during transition to drowsiness. No sleep was achieved. Excessive muscle artifact was noted in left frontal and temporal head region. Hyperventilation could not be performed. Photic stimulation remained unremarkable. Electrocardiogram (EKG) revealed normal sinus rhythm. No focal, lateralizing or epileptiform abnormalities were seen. No relevant clinical activity was noted. CONCLUSION: This electroencephalogram (EEG) in awake and drowsy state is within normal limits. Excessive muscle artifact was noted in left frontal and temporal head region. MTDD
--- NOTE | 2020-07-13 08:04 | ECHO ---
DATE OF PROCEDURE: 07/08/2020 Age: 45 PATIENT LOCATION: Room 3213 REFERRING PROVIDER: Dr. Serafin Mccartney REASON FOR STUDY: Cerebrovascular accident (CVA) 2D MEASUREMENTS: IVS 0.87 cm LV 4.2 cm LVPW 0.9 cm LA 3.2 cm Aorta 2.9 cm IVC 1.6 cm DOPPLER MEASUREMENT Peak velocity across the aortic valve 1.4 mm/s Peak velocity across the LVOT 0.9 mm/s Mitral E 0.77 Mitral A 0.69 with a ratio of 1.1 Maximal velocity 2.1 mm/s 2D COMMENTS: 1. Normal left ventricular size, wall thickness, and normal global left ventricular systolic function. The estimated global left ventricular systolic function is 60% to 65%. 2. Normal left atrium. Normal right atrium and right ventricle. 3. There was increased mobility of the atrial septum consistent with atrial septal aneurysm, a benign finding that may be associated at times to a patent foramen ovale. 4. Normal aortic root. 5. No pericardial effusion seen. 6. The aortic valve, mitral valve, tricuspid valve appear to be normal. The pulmonic valve appears to be normal in limited views. The proximal pulmonary artery branches were not well visualized. 7. The inferior vena cava was normal in size, central venous pressure is most likely normal. 8. Doppler detects trace mitral regurgitation and trace to mild tricuspid regurgitation. The calculated pulmonary artery systolic pressure was normal. IMPRESSION: 1. Normal global left ventricular systolic and diastolic function. 2. Trace mitral regurgitation. 3. [id number] tricuspid regurgitation with a normal calculated pulmonary artery systolic pressure. 4. Atrial septal aneurysm was noted, a benign finding, but at times may be associated with a patent foramen ovale (PFO). MTDD
--- NOTE | 2020-07-13 12:59 | ECGEPIP ---
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
== END 2020-07-08 15:47 | disposition home or self-care (01) ==
LOC: M ED 12:50 → M ED INP 17:09 → INTOOBSV 17:09 → ENRESERV 21:22 → M PCU 22:18
PROVIDERS: ADMIT Internal Medicine; ATTEND Internal Medicine
DX: R53.1 Weakness (principal); R47.9 Unspecified speech disturbances; J98.11 Atelectasis; E11.9 Type 2 diabetes mellitus without complications; F32.9 Major depressive disorder, single episode, unspecified; F41.9 Anxiety disorder, unspecified; Z79.899 Other long term (current) drug therapy; Z88.0 Allergy status to penicillin; Z88.5 Allergy status to narcotic agent; Z88.8 Allergy status to other drugs, medicaments and biological substances; Z88.2 Allergy status to sulfonamides
CPT/HCPCS: 36415; 70450; 70496; 70498; 70544; 70551; 71045; 72141; 80047; 80048; 80061; 80307; 81001; 82550; 82553; 83735; 84484; 84702; 85025; 85610; 85730; 86617; 86850; 86900; 86901; 93005; 93041; 93306; 93880; 94760; 95819; 96372; 97116; 97161; 97165; 99285; J1650; Q9967

== ENCOUNTER 2020-11-30 15:28 | Emergency (ER) | payer SELFPAY ==
[~2020-11-30] VITALS: Ht 162.6 cm; Wt 79.3 kg
[~2020-11-30 15:28] MED LIST changes: +DOXY-350 PO; +PRAV1TAB39 PO; +SERT-138 PO
[2020-11-30 15:29] VITALS: BP 119/78
--- OUTSIDE RECORDS SUMMARY | 2020-11-30 15:33 | CCD ---
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 If such information is present, then the following federally mandated warning applies: This information has been disclosed to you from records protected by federal confidentiality rules (42 CFR part 2). The federal rules prohibit you from making any further disclosure of this information unless further disclosure is expressly permitted by the written consent of the person to whom it pertains or as otherwise permitted by 42 CFR part 2. A general authorization for the release of medical or other information is NOT sufficient for this purpose. The Federal rules restrict any use of the information to criminally investigate or prosecute any alcohol or drug abuse patient.The records that you are about to access may contain highly sensitive health information, the redisclosure of which is protected by Article 27-F of the [facility] Public Health law. If you continue you may have access to information: Regarding HIV / AIDS; Provided by facilities licensed or operated by the [facility] Office of Mental Health; or Provided by the [facility] Office for People With Developmental Disabilities. If such information is present, then the following [facility] mandated warning applies: This information has been disclosed to you from confidential records which are protected by state law. State law prohibits you from making any further disclosure of this information without the specific written consent of the person to whom it pertains, or as otherwise permitted by law. Any unauthorized further disclosure in violation of state law may result in a fine or prison sentence or both. A general authorization for the release of medical or other information is NOT sufficient authorization for further disc losure. Family History Family Member Name Family Member Gender Family Member Status Date o f Status Description Data Source(s) Unknown Female Problem [facility] ([facility], ) Unknown Female Problem [facility] ([facility], ) Encounters Encounter Providers Location Date Indications Data Source(s ) Outpatient Attender: Alina Carrion [facility] 07/09/2020 12:02:21 A M [facility] Outpatient Attender: Alina Carrion [facility] 07/08/2020 02:38:00 P M [facility] Outpatient 04/23/2020 05:41:00 AM EDT [facility]: Alina Carrion [facility] 12/04/2019 10:28:00 A M [facility] Medications Medication Brand Name Start Date Product Form Dose Route Admi nistrative Instructions Pharmacy Instructions Status Indications Reaction Description Data Source(s) 100 mg 11/09/2020 12:00:00 AM EST tablet 30 TAKE ONE TABLET BY MOUTH EVERY DAY TAKE ONE TABLET BY MOUTH EVERY DAY SOLD: 11/09/2020 [facility] 100 mg 07/20/2020 12:00:00 AM EDT tablet 30 TAKE ONE TABLET BY MOUTH EVERY DAY TAKE ONE TABLET BY MOUTH EVERY DAY SOLD: 07/28/2020 [facility] 100 mg 07/20/2020 12:00:00 AM EDT tablet 30 TAKE ONE TABLET BY MOUTH EVERY DAY TAKE ONE TABLET BY MOUTH EVERY DAY SOLD: 10/13/2020 [facility] 20 mg 07/09/2020 12:00:00 AM EDT tablet 30 TAKE ONE TABLET BY MOUTH EVERY DAY TAKE ONE TABLET BY MOUTH EVERY DAY SOLD: 07/28/2020 [facility] 100 mg 07/08/2020 12:00:00 AM EDT capsule 28 TAKE ONE CAPSULE BY MOUTH TWICE A DAY FOR 14 DAYS TAKE ONE CAPSULE BY MOUTH TWICE A DAY FOR 14 DAYS SOLD : 07/08/2020 [facility] 100 mg 05/05/2020 12:00:00 AM EDT tablet 30 TAKE 1 TABLET BY MOUTH ONCE A DAY TAKE 1 TABLET BY MOUTH ONCE A DAY SOLD: 05/07/2020 [facility] 100 mg 05/05/2020 12:00:00 AM EDT tablet 30 TAKE 1 TABLET BY MOUTH ONCE A DAY TAKE 1 TABLET BY MOUTH ONCE A DAY SOLD: 07/08/2020 [facility] 100 mg 05/05/2020 12:00:00 AM EDT tablet 30 TAKE 1 TABLET BY MOUTH ONCE A DAY TAKE 1 TABLET BY MOUTH ONCE A DAY SOLD: 06/08/2020 [facility] 100 mg 01/31/2020 12:00:00 AM EDT tablet 30 TAKE 1 TABLET BY MOUTH ONCE A DAY TAKE 1 TABLET BY MOUTH ONCE A DAY SOLD: 03/08/2020 [facility] 100 mg 01/31/2020 12:00:00 AM EDT tablet 30 TAKE 1 TABLET BY MOUTH ONCE A DAY TAKE 1 TABLET BY MOUTH ONCE A DAY SOLD: 04/09/2020 [facility] 100 mg 01/31/2020 12:00:00 AM EDT tablet 30 TAKE 1 TABLET BY MOUTH ONCE A DAY TAKE 1 TABLET BY MOUTH ONCE A DAY SOLD: 02/03/2020 [facility] 100 mg 11/18/2019 12:00:00 AM EST tablet 30 TAKE 1 TABLET BY MOUTH ONCE A DAY TAKE 1 TABLET BY MOUTH ONCE A DAY SOLD: 11/18/2019 [facility] 100 mg 11/18/2019 12:00:00 AM EST tablet 30 TAKE 1 TABLET BY MOUTH ONCE A DAY TAKE 1 TABLET BY MOUTH ONCE A DAY SOLD: 12/16/2019 [facility] 100 mg 11/18/2019 12:00:00 AM EST tablet 30 TAKE 1 TABLET BY MOUTH ONCE A DAY TAKE 1 TABLET BY MOUTH ONCE A DAY SOLD: 01/03/2020 [facility] 100 mg 08/14/2019 12:00:00 AM EDT tablet 30 TAKE ONE TABLET BY MOUTH EVERY DAY TAKE ONE TABLET BY MOUTH EVERY DAY SOLD: 10/17/2019 [facility] Insurance Providers Payer name Policy type / Coverage type Policy ID Covered alliance party ID Covered alliance party's relationship to clark Policy Clark Plan Information SELF PAY ONLY [id number] SP [id number] SELF PAY O [id number] S [id number] Self Pay P [id number] S [id number] O UNAVAILABLE UNAVAILA BLE BIG DOG DAIRY O [id number] S [id number] HRSA UNINSURED FUND SP SELF PAY SP BCBS [facility] [id number] SP [id number] [facility]IR[facility] BLUE [id number] SP [id number] SELF PAY ONLY UNAVAILABLE SP UNAV AILABLE Sliding Fee Scale P none S no ne BIG DOG DAIRY [id number] SP [id number] 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 O [id number] O [id number] [facility] COMMUNITY PLAN [facility] [id number] SP [id number] [facility] [id number] SP [id number] [place] Medig[place] Part B [id number] Self [id number] [facility] Health Maintenance Organization (HMO) [id number] Self [id number] Sliding Fee Scale P UNAVAILABLE S UNAVAILABLE [facility] Health Maintenance Organization (HMO) [id number] Self [id number] [place] Part [place] Self Self Pay P UNAVAILABLE S UNAVAILA BLE [employer] Insurance Commercial Self BS [place] Medigap Part B Self [place] Med[place] Part B Self c Community Plan Commercial Self [facility] Health Maintenance Organization (HMO) Self UN COMMUNITY PLAN [facility] [id number] SP [id number] [facility] Health Maintenance Organization (HMO) Self [facility] COMMUNITY PLAN [facility] [id number] SP [id number] MEDICAID [id number] SP [id number] AETNA [facility] [id number] BCBS [facility] 200/700 [id number] SELF PAY [id number] SP [id number] BCBS [facility] [id number] SP [id number] SELF PAY UNAVAILABLE SP UNAVAILA BLE [place] [id number] SP [id number] [facility] [id number] SP [id number] [place] [id number] SP [id number] [facility] [id number] SP [id number] Results ID Date Data Source [id number] 11/26/2020 12:00:00 AM EST [facility] Name Value Range Interpretation Code Description Data Aaliyah rce(s) Supporting Document(s) SARS coronavirus 2 Ag NEGATIVE [facility] This lab was ordered by [facility] and reported by [facility]. ID Date Data Source [id number] 11/23/2020 02:00:00 PM EST [facility] Name Value Range Interpretation Code Description Data Aaliyah rce(s) Supporting Document(s) SARS coronavirus 2 RNA Not Detected [facility] This lab was ordered by [facility] and reported by [facility]. ID Date Data Source [id number] 11/19/2020 12:00:00 AM EST [facility] Name Value Range Interpretation Code Description Data Aaliyah rce(s) Supporting Document(s) SARS coronavirus 2 Ag Negative [facility] This lab was ordered by [facility] and reported by [facility]. ID Date Data Source [id number] 11/16/2020 06:04:00 AM EST [facility] Name Value Range Interpretation Code Description Data Aaliyah rce(s) Supporting Document(s) SARS coronavirus 2 RNA Not Detected [facility] [place] This lab was ordered by [facility] and reported by [facility]. ID Date Data Source [id number] 11/16/2020 12:00:00 AM EST [facility] Name Value Range Interpretation Code Description Data Aaliyah rce(s) Supporting Document(s) SARS-CoV2 Rapid Antigen Negative [facility] This lab was ordered by [facility] and reported by [facility]. ID Date Data Source [id number] 11/12/2020 12:00:00 AM EST [facility] Name Value Range Interpretation Code Description Data Aaliyah rce(s) Supporting Document(s) SARS-CoV2 Rapid Antigen Negative [facility] This lab was ordered by [facility] and reported by [facility]. ID Date Data Source [id number] 11/09/2020 08:00:00 AM EST [facility] Name Value Range Interpretation Code Description Data Aaliyah rce(s) Supporting Document(s) SARS coronavirus 2 RNA Not Detected [facility] [place] This lab was ordered by [facility] and reported by [facility]. ID Date Data Source [id number] 11/02/2020 02:00:00 PM EST [facility] Name Value Range Interpretation Code Description Data Aaliyah rce(s) Supporting Document(s) SARS coronavirus 2 RNA Not Detected [facility] [place] This lab was ordered by [facility] and reported by [facility]. ID Date Data Source [id number] 10/26/2020 02:30:00 PM EST [facility] Name Value Range Interpretation Code Description Data Aaliyah rce(s) Supporting Document(s) SARS coronavirus 2 RNA [facility] This lab was ordered by [facility] and reported by [facility]. ID Date Data Source [id number] 10/19/2020 02:13:00 PM EST [facility] Name Value Range Interpretation Code Description Data Aaliyah rce(s) Supporting Document(s) SARS coronavirus 2 RNA [facility] This lab was ordered by [facility] and reported by [facility]. ID Date Data Source [id number] 10/12/2020 08:00:00 AM EST [facility] Name Value Range Interpretation Code Description Data Aaliyah rce(s) Supporting Document(s) SARS coronavirus 2 RNA [facility] This lab was ordered by [facility] and reported by [facility]. ID Date Data Source [id number] 10/05/2020 05:17:00 AM EST [facility] Name Value Range Interpretation Code Description Data Aaliyah rce(s) Supporting Document(s) SARS coronavirus 2 RNA [facility] This lab was ordered by [facility] and reported by [facility]. ID Date Data Source [id number] 09/28/2020 06:00:00 AM EST [facility] Name Value Range Interpretation Code Description Data Aaliyah rce(s) Supporting Document(s) SARS coronavirus 2 RNA [facility] This lab was ordered by [facility] and reported by [facility]. ID Date Data Source [id number] 09/25/2020 12:00:00 AM EST [facility] Name Value Range Interpretation Code Description Data Aaliyah rce(s) Supporting Document(s) SARS-CoV2 Rapid Antigen [facility] and reported by [facility]. ID Date Data Source [id number] 09/21/2020 09:00:00 AM EST [facility] Name Value Range Interpretation Code Description Data Aaliyah rce(s) Supporting Document(s) SARS coronavirus 2 RNA [facility] This lab was ordered by [facility] and reported by [facility]. ID Date Data Source [id number] 09/14/2020 10:51:00 AM EST [facility] Name Value Range Interpretation Code Description Data Aaliyah rce(s) Supporting Document(s) SARS coronavirus 2 RNA [facility] This lab was ordered by [facility] and reported by [facility]. ID Date Data Source [id number] 09/07/2020 06:45:00 AM EST [facility] Name Value Range Interpretation Code Description Data Aaliyah rce(s) Supporting Document(s) SARS coronavirus 2 RNA [facility] This lab was ordered by [facility] and reported by [facility]. ID Date Data Source [id number] 08/31/2020 05:30:00 AM EST [facility] Name Value Range Interpretation Code Description Data Aaliyah rce(s) Supporting Document(s) SARS coronavirus 2 RNA [facility] This lab was ordered by [facility] and reported by [facility]. ID Date Data Source [id number] 08/24/2020 02:04:00 PM EDT [facility] Name Value Range Interpretation Code Description Data Aaliyah rce(s) Supporting Document(s) SARS coronavirus 2 RNA [facility] This lab was ordered by [facility] and reported by [facility]. ID Date Data Source [id number] 08/17/2020 12:00:00 PM EDT [facility] Name Value Range Interpretation Code Description Data Aaliyah rce(s) Supporting Document(s) SARS coronavirus 2 RNA [facility] This lab was ordered by [facility] and reported by [facility]. ID Date Data Source [id number] 08/10/2020 05:30:00 AM EDT [facility] Name Value Range Interpretation Code Description Data Aaliyah rce(s) Supporting Document(s) SARS coronavirus 2 RNA [facility] This lab was ordered by [facility] and reported by [facility]. ID Date Data Source [id number] 08/03/2020 05:30:00 AM EDT [facility] Name Value Range Interpretation Code Description Data Aaliyah rce(s) Supporting Document(s) SARS coronavirus 2 RNA [facility] This lab was ordered by [facility] and reported by [facility]. ID Date Data Source [id number] 07/27/2020 08:00:00 AM EDT [facility] Name Value Range Interpretation Code Description Data Aaliyah rce(s) Supporting Document(s) SARS coronavirus 2 RNA [facility] This lab was ordered by [facility] and reported by [facility]. ID Date Data Source [id number] 07/20/2020 06:30:00 AM EDT [facility] Name Value Range Interpretation Code Description Data Aaliyah rce(s) Supporting Document(s) SARS coronavirus 2 RNA [facility] This lab was ordered by [facility] and reported by [facility]. ID Date Data Source [id number] 07/13/2020 05:30:00 AM EDT [facility] Name Value Range Interpretation Code Description Data Aaliyah rce(s) Supporting Document(s) SARS coronavirus 2 RNA [facility] This lab was ordered by [facility] and reported by [facility]. ID Date Data Source [id number] 07/09/2020 02:11:00 PM EDT [facility] Name Value Range Interpretation Code Description Data Aaliyah rce(s) Supporting Document(s) SARS coronavirus 2 RNA [facility] This lab was ordered by [facility] and reported by [facility]. ID Date Data Source [id number] 06/29/2020 07:06:00 AM EDT [facility] Name Value Range Interpretation Code Description Data Aaliyah rce(s) Supporting Document(s) SARS coronavirus 2 RNA [facility] This lab was ordered by [facility] and reported by [facility]. ID Date Data Source [id number] 06/23/2020 09:33:00 AM EDT [facility] Name Value Range Interpretation Code Description Data Aaliyah rce(s) Supporting Document(s) SARS coronavirus 2 RNA [facility] This lab was ordered by [facility] and reported by [facility]. ID Date Data Source [id number] 05/21/2020 12:00:00 PM EDT [facility] Name Value Range Interpretation Code Description Data Aaliyah rce(s) Supporting Document(s) SARS coronavirus 2 RNA [facility] This lab was ordered by [facility] and reported by [facility]. ID Date Data Source [id number] 05/12/2020 06:00:00 AM EDT [facility] Name Value Range Interpretation Code Description Data Aaliyah rce(s) Supporting Document(s) SARS coronavirus 2 RNA [facility] This lab was ordered by [facility] and reported by [facility]. ID Date Data Source [id number] 05/05/2020 06:00:00 AM EDT [facility] Name Value Range Interpretation Code Description Data Aaliyah rce(s) Supporting Document(s) SARS coronavirus 2 RNA [facility] This lab was ordered by [facility] and reported by [facility]. ID Date Data Source [id number] 04/28/2020 05:30:00 AM EDT [facility] Name Value Range Interpretation Code Description Data Aaliyah rce(s) Supporting Document(s) SARS CORONAVIRUS 2 RNA [facility] This lab was ordered by [facility] and reported by [facility]. ID Date Data Source [id number] 04/21/2020 05:30:00 AM EDT [facility] Name Value Range Interpretation Code Description Data Aaliyah rce(s) Supporting Document(s) SARS CORONAVIRUS 2 RNA [facility] This lab was ordered by [facility] and reported by [facility]. ID Date Data Source [id number] 04/14/2020 11:49:00 AM EDT [facility] Name Value Range Interpretation Code Description Data Aaliyah rce(s) Supporting Document(s) SARS CORONAVIRUS 2 RNA [facility] This lab was ordered by [facility] and reported by [facility]. ID Date Data Source [id number] 04/07/2020 06:00:00 AM EDT [facility] Name Value Range Interpretation Code Description Data Aaliyah rce(s) Supporting Document(s) SARS CORONAVIRUS 2 RNA [facility] This lab was ordered by [facility] and reported by [facility]. ID Date Data Source [id number] 03/11/2020 11:40:00 AM EDT [facility] Name Value Range Interpretation Code Description Data Aaliyah rce(s) Supporting Document(s) SARS CORONAVIRUS 2 RNA [facility] This lab was ordered by [facility] and reported by [facility]. Procedure
--- OUTSIDE RECORDS SUMMARY | 2020-11-30 18:41 | CCD ---
Author Author [facility] Organization [facility] Address Unknown Phone Unavailable Care Team Providers Care Chief Fundraising Officer Name Role Phone Dille, E Alina DDS [...] is protected by Article 27-F of the [facility] Public Health law. If you continue you may have access to information: Regarding HIV / AIDS; Provided by facilities licensed or operated by the [facility] Office of Mental Health; or Provided by the [facility] Office for People With Developmental Disabilities. If such information is present, then the following [facility] mandated warning applies: This information has [...] law may result in a fine or usp sentence or both. A general authorization for the release of medical or other information is NOT sufficient authorization for further disc losure. Family History Family Member Name Family Member Gender Family Member Status Date o f Status Description Data Source(s) Unknown Female Problem [facility] ([facility], ) Unknown Female Problem [facility] ([facility] ) Encounters Encounter Providers Location Date Indications Data Source(s ) Outpatient Attender: Alina Carrion [facility] 07/09/2020 12:02:21 A [facility] Outpatient Attender: Alina Carrion [facility] 07/08/2020 02:38:00 P [facility] Outpatient 04/23/2020 05:41:00 AM EDT [facility] Alina Carrion [facility] 12/04/2019 10:28:00 A M [facility] Medications Medication Brand Name Start Date [...] BY MOUTH ONCE A DAY SOLD: 04/09/2020 [facility] 100 mg 01/31/2020 12:00:00 AM EDT [...] type / Coverage type Policy ID Covered green party ID Covered green party's relationship to clark Policy Clark Plan Information SELF PAY ONLY [id number] SP [id number] SELF PAY O [id number] S [id number] Self Pay P [id number] S [id number] O UNAVAILABLE UNAVAILA BLE [employer]IRY O [id number] S [id number] HRSA UNINSURED FUND SP SELF PAY SP BCBS [facility] [id number] SP [id number] [employer] DOG DAIRY [facility] BLUE [id number] SP [id number] SELF PAY ONLY UNAVAILABLE SP UNAV AILABLE Sliding Fee Scale P none S no ne BIG DOG DAIRY [id number] SP [id number] 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 [id number] SP [id number] [facility] [id number] SP [id number] [place] Medig[place] Part B [id number] Self [id number] [facility] Health Maintenance Organization (HMO) [id number] Self [id number] Sliding Fee Scale P UNAVAILABLE S UNAVAILABLE [facility] Health Maintenance Organization (HMO) [id number] Self [id number] [place] Part [place] Self Self Pay P UNAVAILABLE S UNAVAILA BLE [employer] Insurance Commercial Self BS [place] Medigap Part B Self [place] Medig[place] Part B Self c Community Plan Commercial Self [facility] Health Maintenance Organization (HMO) Self UN COMMUNITY [facility]AN [facility] [id number] SP [id number] [facility] Health Maintenance Organization (HMO) Self [facility] [id number] SP [id number] MEDICAID [id number] SP [id number] AETNA [facility] [id number] BCBS [facility] 200/700 [id number] SELF PAY [id number] SP [id number] BCBS [facility] [id number] SP [id number] SELF PAY UNAVAILABLE SP UNAVAILA BLE [place] [id number] SP [id number] [facility] [id number] SP [id number] [place] [id number] SP [id number] [facility] [id number] SP [id number] Results ID Date Data Source [id number] 11/26/2020 12:00:00 AM EST [facility] Name Value Range Interpretation Code Description Data Aaliyah rce(s) Supporting Document(s) SARS coronavirus 2 Ag NEGATIVE [facility] This lab was ordered by [facility] and reported by [facility]. ID Date Data Source [id number] 11/23/2020 02:00:00 PM EST [facility] Name Value Range Interpretation Code Description Data Aaliyah rce(s) Supporting Document(s) SARS coronavirus 2 RNA Not Detected [facility] This lab was ordered by [facility] and reported by [facility]. ID Date Data Source [id number] 11/19/2020 12:00:00 AM EST [facility] Name Value Range Interpretation Code Description Data Aaliyah rce(s) Supporting Document(s) SARS coronavirus 2 Ag Negative [facility] This lab was ordered by [facility] and reported by [facility]. ID Date Data Source [id number] 11/16/2020 06:04:00 AM EST [facility] Name Value Range Interpretation Code Description Data Aaliyah rce(s) Supporting Document(s) SARS coronavirus 2 RNA Not Detected [facility] [place] This lab was ordered by [facility] and reported by [facility]. ID Date Data Source [id number] 11/16/2020 12:00:00 AM EST [facility] Name Value Range Interpretation Code Description Data Aaliyah rce(s) Supporting Document(s) SARS-CoV2 Rapid Antigen Negative [facility] This lab was ordered by [facility] and reported by [facility]. ID Date Data Source [id number] 11/12/2020 12:00:00 AM EST [facility] Name Value Range Interpretation Code Description Data Aaliyah rce(s) Supporting Document(s) SARS-CoV2 Rapid Antigen Negative [facility] This lab was ordered by [facility] and reported by [facility]. ID Date Data Source [id number] 11/09/2020 08:00:00 AM EST [facility] Name Value Range Interpretation Code Description Data Aaliyah rce(s) Supporting Document(s) SARS coronavirus 2 RNA Not Detected [facility] [place] This lab was ordered by [facility] and reported by [facility]. ID Date Data Source [id number] 11/02/2020 02:00:00 PM EST [facility] Name Value Range Interpretation Code Description Data Aaliyah rce(s) Supporting Document(s) SARS coronavirus 2 RNA Not Detected [facility] [place] This lab was ordered by [facility] and reported by [facility]. ID Date Data Source [id number] 10/26/2020 02:30:00 PM EST [facility] Name Value Range Interpretation Code Description Data Aaliyah rce(s) Supporting Document(s) SARS coronavirus 2 RNA [facility] This lab was ordered by [facility] and reported by [facility]. ID Date Data Source [id number] 10/19/2020 02:13:00 PM EST [facility] Name Value Range Interpretation Code Description Data Aaliyah rce(s) Supporting Document(s) SARS coronavirus 2 RNA [facility] This lab was ordered by [facility] and reported by [facility]. ID Date Data Source [id number] 10/12/2020 08:00:00 AM EST [facility] Name Value Range Interpretation Code Description Data Aaliyah rce(s) Supporting Document(s) SARS coronavirus 2 RNA [facility] This lab was ordered by [facility] and reported by [facility]. ID Date Data Source [id number] 10/05/2020 05:17:00 AM EST [facility] Name Value Range Interpretation Code Description Data Aaliyah rce(s) Supporting Document(s) SARS coronavirus 2 RNA [facility] This lab was ordered by [facility] and reported by [facility]. ID Date Data Source [id number] 09/28/2020 06:00:00 AM EST [facility] Name Value Range Interpretation Code Description Data Aaliyah rce(s) Supporting Document(s) SARS coronavirus 2 RNA [facility] This lab was ordered by [facility] and reported by [facility]. ID Date Data Source [id number] 09/25/2020 12:00:00 AM EST [facility] Name Value Range Interpretation Code Description Data Aaliyah rce(s) Supporting Document(s) SARS-CoV2 Rapid Antigen [facility] and [facility] by [facility]. ID Date Data Source [id number] 09/21/2020 09:00:00 AM EST [facility] Name Value Range Interpretation Code Description Data Aaliyah rce(s) Supporting Document(s) SARS coronavirus 2 RNA [facility] This lab was ordered by [facility] and reported by [facility]. ID Date Data Source [id number] 09/14/2020 10:51:00 AM EST [facility] Name Value Range Interpretation Code Description Data Aaliyah rce(s) Supporting Document(s) SARS coronavirus 2 RNA [facility] This lab was ordered by [facility] and reported by [facility]. ID Date Data Source [id number] 09/07/2020 06:45:00 AM EST [facility] Name Value Range Interpretation Code Description Data Aaliyah rce(s) Supporting Document(s) SARS coronavirus 2 RNA [facility] This lab was ordered by [facility] and reported by [facility]. ID Date Data Source [id number] 08/31/2020 05:30:00 AM EST [facility] Name Value Range Interpretation Code Description Data Aaliyah rce(s) Supporting Document(s) SARS coronavirus 2 RNA [facility] This lab was ordered by [facility] and reported by [facility]. ID Date Data Source [id number] 08/24/2020 02:04:00 PM EDT [facility] Name Value Range Interpretation Code Description Data Aaliyah rce(s) Supporting Document(s) SARS coronavirus 2 RNA [facility] This lab was ordered by [facility] and reported by [facility]. ID Date Data Source [id number] 08/17/2020 12:00:00 PM EDT [facility] Name Value Range Interpretation Code Description Data Aaliyah rce(s) Supporting Document(s) SARS coronavirus 2 RNA [facility] This lab was ordered by [facility] and reported by [facility]. ID Date Data Source [id number] 08/10/2020 05:30:00 AM EDT [facility] Name Value Range Interpretation Code Description Data Aaliyah rce(s) Supporting Document(s) SARS coronavirus 2 RNA [facility] This lab was ordered by [facility] and reported by [facility]. ID Date Data Source [id number] 08/03/2020 05:30:00 AM EDT [facility] Name Value Range Interpretation Code Description Data Aaliyah rce(s) Supporting Document(s) SARS coronavirus 2 RNA [facility] This lab was ordered by [facility] and reported by [facility]. ID Date Data Source [id number] 07/27/2020 08:00:00 AM EDT [facility] Name Value Range Interpretation Code Description Data Aaliyah rce(s) Supporting Document(s) SARS coronavirus 2 RNA [facility] This lab was ordered by [facility] and reported by [facility]. ID Date Data Source [id number] 07/20/2020 06:30:00 AM EDT [facility] Name Value Range Interpretation Code Description Data Aaliyah rce(s) Supporting Document(s) SARS coronavirus 2 RNA [facility] This lab was ordered by [facility] and reported by [facility]. ID Date Data Source [id number] 07/13/2020 05:30:00 AM EDT [facility] Name Value Range Interpretation Code Description Data Aaliyah rce(s) Supporting Document(s) SARS coronavirus 2 RNA [facility] This lab was ordered by [facility] and reported by [facility]. ID Date Data Source [id number] 07/09/2020 02:11:00 PM EDT [facility] Name Value Range Interpretation Code Description Data Aaliyah rce(s) Supporting Document(s) SARS coronavirus 2 RNA [facility] This lab was ordered by [facility] and reported by [facility]. ID Date Data Source [id number] 06/29/2020 07:06:00 AM EDT [facility] Name Value Range Interpretation Code Description Data Aaliyah rce(s) Supporting Document(s) SARS coronavirus 2 RNA [facility] This lab was ordered by [facility] and reported by [facility]. ID Date Data Source [id number] 06/23/2020 09:33:00 AM EDT [facility] Name Value Range Interpretation Code Description Data Aaliyah rce(s) Supporting Document(s) SARS coronavirus 2 RNA [facility] This lab was ordered by [facility] and reported by [facility]. ID Date Data Source [id number] 05/21/2020 12:00:00 PM EDT [facility] Name Value Range Interpretation Code Description Data Aaliyah rce(s) Supporting Document(s) SARS coronavirus 2 RNA [facility] This lab was ordered by [facility] and reported by [facility]. ID Date Data Source [id number] 05/12/2020 06:00:00 AM EDT [facility] Name Value Range Interpretation Code Description Data Aaliyah rce(s) Supporting Document(s) SARS coronavirus 2 RNA [facility] This lab was ordered by [facility] and reported by [facility]. ID Date Data Source [id number] 05/05/2020 06:00:00 AM EDT [facility] Name Value Range Interpretation Code Description Data Aaliyah rce(s) Supporting Document(s) SARS coronavirus 2 RNA [facility] This lab was ordered by [facility] and reported by [facility]. ID Date Data Source [id number] 04/28/2020 05:30:00 AM EDT [facility] Name Value Range Interpretation Code Description Data Aaliyah rce(s) Supporting Document(s) SARS CORONAVIRUS 2 RNA [facility] This lab was ordered by [facility] and reported by [facility]. ID Date Data Source [id number] 04/21/2020 05:30:00 AM EDT [facility] Name Value Range Interpretation Code Description Data Aaliyah rce(s) Supporting Document(s) SARS CORONAVIRUS 2 RNA [facility] This lab was ordered by [facility] and reported by [facility]. ID Date Data Source [id number] 04/14/2020 11:49:00 AM EDT [facility] Name Value Range Interpretation Code Description Data Aaliyah rce(s) Supporting Document(s) SARS CORONAVIRUS 2 RNA [facility] This lab was ordered by [facility] and reported by [facility]. ID Date Data Source [id number] 04/07/2020 06:00:00 AM EDT [facility] Name Value Range Interpretation Code Description Data Aaliyah rce(s) Supporting Document(s) SARS CORONAVIRUS 2 RNA [facility] This lab was ordered by [facility] and reported by [facility]. ID Date Data Source [id number] 03/11/2020 11:40:00 AM EDT [facility] Name Value Range Interpretation Code Description Data Aaliyah rce(s) Supporting Document(s) SARS CORONAVIRUS 2 RNA [facility] This lab was ordered by [facility] and reported by [facility]. Procedure
== END 2020-11-30 18:20 | disposition left against medical advice (07) ==
LOC: M ED 15:28
DX: Z53.21 Procedure and treatment not carried out due to patient leaving prior to being seen by health care provider (principal)

== ENCOUNTER 2021-05-16 02:41 | Emergency (ER) | payer MEDICAID, OTHER, SELFPAY ==
[~2021-05-16] VITALS: Ht 162.6 cm; Wt 81.8 kg
[2021-05-16 03:24] LABS: BASO # 0.1 10^3/uL (0.0-0.2); BASO % 0.6 % (0.0-1.0); EOS # 0.3 10^3/uL (0.0-0.5); EOS % 3.6 % (0.0-3.0); HEMATOCRIT 42.6 % (36.0-47.0); HEMOGLOBIN 14.4 g/dl (12.0-15.5); LYMPH # 2.3 10^3/uL (1.5-5.0); LYMPH % 27.7 % (24.0-44.0); MEAN CORPUSCULAR HEMOGLOBIN 29.4 pg (27.0-33.0); MEAN CORPUSCULAR HGB CONC 33.8 g/dl (32.0-36.5); MEAN CORPUSCULAR VOLUME 86.9 fl (80.0-96.0); MONO % 11.9 % (2.0-8.0); NEUTROPHILS # 4.7 10^3/uL (1.5-8.5); PLATELET COUNT, AUTOMATED 340 10^3/uL (150-450); WHITE BLOOD COUNT 8.4 10^3/uL (4.0-10.0)
[2021-05-16] MEDS ORDERED: KETOROLAC 30 MG/ML 1ML VIAL IV ONE (03:30)
[2021-05-16] MEDS ORDERED: NS 1,000 ML IV ONE (03:30)
[2021-05-16 03:53] LABS: ALBUMIN 3.9 GM/DL (3.2-5.2); ALT/SGPT 37 U/L (12-78); BILIRUBIN,DIRECT 0.1 MG/DL (0.0-0.2); BILIRUBIN,TOTAL 0.3 MG/DL (0.2-1.0); BLOOD UREA NITROGEN 12 MG/DL (7-18); CALCIUM LEVEL 8.9 MG/DL (8.5-10.1); CARBON DIOXIDE LEVEL 26 MEQ/L (21-32); CHLORIDE LEVEL 110 MEQ/L (98-107); CREATININE FOR GFR 0.86 MG/DL (0.55-1.30); GLOMERULAR FILTRATION RATE > 60.0 (>58); GLUCOSE, FASTING 105 MG/DL (70-100); LIPASE 64 U/L (73-393); POTASSIUM SERUM 4.4 MEQ/L (3.5-5.1); SODIUM LEVEL 142 MEQ/L (136-145); TOTAL PROTEIN 7.1 GM/DL (6.4-8.2)
[2021-05-16] MEDS ORDERED: ONDANSETRON 4MG/2ML VIAL IV ONE (06:15)
[2021-05-16] MEDS ORDERED: MEPERIDINE 50 MG/ML 1ML VIAL (J2175) IM ONE ×2 (06:15→09:15)
[2021-05-16 06:45] LABS: HCG, SERUM QUALITATIVE NEGATIVE (NEGATIVE)
--- NOTE | 2021-05-16 09:17 | REPVR ---
PROCEDURE INFORMATION: Exam: CT Abdomen And Pelvis Without Contrast Exam date and time: 05/16/2021 6:50 AM Age: 46 years old Clinical indication: Abdominal pain; Flank; Right; Additional info: R flank pain, microhematuria R/O stone TECHNIQUE: Imaging protocol: Computed tomography of the abdomen and pelvis without contrast. Radiation optimization: All CT scans at this facility use at least one of these dose optimization techniques: automated exposure control; mA and/or kV adjustment per patient size (includes targeted exams where dose is matched to clinical indication); or iterative reconstruction. COMPARISON: CT ABD/PEL W/IV CONTRAST ONLY 04/06/2020 3:44 AM FINDINGS: Liver: No mass. Gallbladder and bile ducts: No calcified stones. No ductal dilation. Pancreas: No ductal dilation. Spleen: No splenomegaly. Adrenal glands: Normal. No mass. Kidneys and ureters: Bilateral nephrolithiasis, measuring up to 5 mm in the right inferior kidney and 4 mm in the left superior kidney. No ureteral calculi or hydronephrosis. Stomach and bowel: No obstruction. No mucosal thickening. Appendix: No evidence of appendicitis. Intraperitoneal space: No free abdominal fluid or air. Vasculature: No abdominal aortic aneurysm. Lymph nodes: No enlarged lymph nodes. Urinary bladder: Unremarkable as visualized. Reproductive: Unremarkable as visualized. Bones/joints: No acute fracture. Soft tissues: Tiny fat containing periumbilical hernia. Other findings: Evaluation of solid organs and vasculature is suboptimal lacking intravenous contrast. Calcified nodule in the right pelvis likely an old epiploic appendage, stable. IMPRESSION: 1. No acute intra-abdominal abnormality. 2. Non-obstructing bilateral nephrolithiasis. Electronically signed by: Hesham Sunshine On 05/16/2021 09:17:34 AM
[2021-05-16] MEDS ORDERED: OXYC1TAB23 PO (09:33)
[2021-05-16] MEDS ORDERED: KETO10TAB PO (09:33)
[2021-05-16 10:18] VITALS: BP 119/64
== END 2021-05-16 10:20 | disposition home or self-care (01) ==
LOC: M ED 05:24
DX: R10.9 Unspecified abdominal pain (principal); N20.0 Calculus of kidney; R31.29 Other microscopic hematuria; E11.9 Type 2 diabetes mellitus without complications; J45.909 Unspecified asthma, uncomplicated; F41.9 Anxiety disorder, unspecified; F33.9 Major depressive disorder, recurrent, unspecified; Z88.0 Allergy status to penicillin; Z88.2 Allergy status to sulfonamides; Z88.6 Allergy status to analgesic agent; Z79.899 Other long term (current) drug therapy
CPT/HCPCS: 74176; 80048; 80076; 81001; 83690; 84703; 85025; 93041; 96361; 96372; 96374; 96375; 99284; J1885; J2175; J2405

== ENCOUNTER → 2021-05-19 | Outpatient (CLI) | payer OTHER ==
[~2021-05-19] MED LIST changes: +BELL16.218 PR; +GASTROGRAFIN SOLUTION 30ML (Q9963) As Ordered ONE; +ISOVUE-370 76% 100ML VIAL As Ordered ONE; +KETO10TAB PO; +OXYB5TAB10 PO; +OXYC1TAB23 PO
--- NOTE | 2021-05-19 14:39 | REP ---
INDICATION: RENAL MASS, KIDNEY STONE. COMPARISON: CT without contrast 05/16/2021, with contrast 04/06/2020 TECHNIQUE: Oral Gastrografin mixture per our bowel contrast protocol followed by bolus of 100 mL Isovue 370 scanning through the abdomen. Coronal and sagittal reconstructions were provided. FINDINGS: The lung bases are clear. The heart is not enlarged. There is no pericardial thickening or effusion. I see no hiatal hernia. There is a hypodense the liver compared to spleen as on the pre contrast study indicating mild fatty infiltration. Is mild hepatomegaly with an 18 cm vertical diameter the mid clavicular line no a Paddock mass or biliary dilatation. Hepatic contour smooth. Gallbladder without calcified stone or mass. No splenomegaly or focal splenic lesion. Adrenal glands are normal. Pancreas shows no mass, ductal dilatation or adjacent inflammatory change/fluid collection. No calcifications within it. The aorta is without aneurysm. There is no periaortic, other retroperitoneal or mesenteric pathologic sized lymphadenopathy. Small bowel loops are without dilatation or adjacent inflammatory change in the mesentery. Oral contrast goes throughout the small bowel into the hepatic flexure. Appendix is seen and normal. There is no sign of colitis, diverticulitis, stricture or intra-abdominal colonic mass. Nonobstructing lower pole calcification on the right and upper pole calcification in the left kidney unchanged. No solid mass or hydronephrosis. Proximal ureters are without dilatation or stone. Enhancement of the kidneys is symmetric pattern no solid renal mass. The upper pole of the right kidney is a hypodense 9 mm focus seen better on the delayed than equilibrium phase image. Laterally in the lower pole there is an 8 mm cortical hypodensity consistent with a small cyst I do not see other significant cortical findings. Lower thoracic and lumbar vertebral bodies in the posterior elements grossly intact. Visualized ribs are unremarkable. IMPRESSION: 1. Nonobstructing 5 mm right lower pole and left upper pole calculi without hydronephrosis. 2. Right upper pole 9 mm cyst and lateral right lower pole 8 mm cyst noted. No solid renal mass or other significant finding. Remainder of the structures in the abdomen unremarkable. <Electronically signed by Benito Tsai > 05/19/21 [id number]
[2021-05-19 15:47] LABS: AMORPHOUS SEDIMENT MODERATE (NEGATIVE); APPEARANCE, URINE TURBID (CLEAR); BACTERIA, URINE AUTO NEGATIVE (NEGATIVE); BILIRUBIN, URINE AUTO NEGATIVE (NEGATIVE); BLOOD, URINE BLOOD 3+ (NEGATIVE); COLOR, URINE YELLOW (YELLOW); GLUCOSE, URINE (UA) AUTO NEGATIVE (NEGATIVE); KETONE, URINE AUTO NEGATIVE (NEGATIVE); LEUKOCYTE ESTERASE, URINE AUTO NEGATIVE (NEGATIVE); MUCUS, URINE MODERATE (NEGATIVE); NITRITE, URINE AUTO NEGATIVE (NEGATIVE); PROTEIN, URINE AUTO 1+ mg/dL (NEGATIVE); RBC, URINE AUTO 26 /HPF (0-3); SPECIFIC GRAVITY URINE AUTO 1.028 (1.002-1.035); SQUAMOUS EPITHELIAL CELL UR AU 0 /HPF (0-6); UROBILINOGEN, URINE AUTO 0.2 mg/dL (0.0-2.0); WBC, URINE AUTO 0 /HPF (0-3)
--- NOTE | 2021-05-19 16:19 | REP ---
INDICATION: NEPHROLITHIASIS AND PELVIC NEOPLASM. COMPARISON: CT abdomen pelvis without contrast 05/16/2021, with contrast 04/06/2020 TECHNIQUE: No IV contrast given for this study through the pelvis with coronal and sagittal reconstructions. Scanning was performed over [address] abdomen this same date. IV contrast from that study is filling the bladder and oral contrast as mostly extended into the colon reaching the rectum. FINDINGS: Abdominal portion of the ureters is not dilated. I see no ureteral stone. The bladder is partially filled. No bladder diverticula or bladder wall mass suggested. Uterus is enlarged and globular measuring 11.5 x 5.5 by 8.1 cm. The ovaries appear symmetric without gross mass. Small bowel loops in the lower abdomen and pelvis to the ileocecal valve are without dilatation. No bowel wall thickening. Terminal ileum grossly unremarkable. Appendix is seen and normal with oral contrast within it. There is no ventral or inguinal hernia nor pathologic sized inguinal adenopathy. No pelvic free fluid or pelvic lymphadenopathy identified. A coarse benign calcification is again seen posteriorly in the right pelvis lateral to the right side of the uterus and posterior to the right adnexa stable. Does not appear to be arising from the adnexa. This is a benign finding. Bone windows show the lower lumbar levels, sacrum, SI joints iliac bones hips and ischia all intact. Incidental note is made sacralization of transverse processes of L5, fused with the S1 vertebral level. IMPRESSION: Enlarged globular uterus as described. No pelvic lymphadenopathy, adnexal mass or asymmetry, free fluid or ureteral dilatation/stone. The bladder partially filled with IV contrast, no gross mass or wall thickening. No dilated distal ureter. No acute bony abnormality. Small bowel loops and visualized colon unremarkable. No ventral or inguinal hernia and no inguinal or pelvic pathologic sized lymphadenopathy. <Electronically signed by Benito Tsai > 05/19/21 [id number]
== END ==
LOC: M RAD 11:19
PROVIDERS: ATTEND Urology
DX: N20.0 Calculus of kidney (principal); D49.89 Neoplasm of unspecified behavior of other specified sites; N28.1 Cyst of kidney, acquired; N85.2 Hypertrophy of uterus
CPT/HCPCS: 72192; 74160; 81001; Q9963; Q9967

== ENCOUNTER 2021-05-20 14:46 | Day surgery (SDC) | payer OTHER ==
[~2021-05-20] VITALS: Ht 162.6 cm; Wt 82.0 kg
--- NOTE | 2021-05-20 12:02 | SMCUROLCON ---
Urology Consultation General Date of Consultation 05/20/21 Reason For Consultation This patient is seen for Cystoscopy R Uretheral Stent Placement. History of Present Illness .46 yo F with intractable right flank pain, non-obtructive 4-5 mm renal stones mild hydronephrosis. She also has a small coarse benign pelvic calcification posteriorly in the right pelvis lateral to the right side of the uterus and posterior to the right adnexa notes as stable on CT 05/19/21. She has increased microscopic hematuria from 8 to 26 HPF, neg WBC, nitrite and leuk. Plan to perform cystoscopy with right retrograde pyelogram and insertion of ureteral stent. Should also refer to irrigation laborer for pelvic calcification Allergies Allergies: Coded Allergies: Penicillins (Verified Allergy, Severe, 07/07/20) hives Sulfa (Sulfonamide Antibiotics) (Verified Allergy, Severe, 07/07/20) hives aspirin (Verified Allergy, Severe, 07/07/20) codeine (Verified Allergy, Severe, 07/07/20) metal issues morphine (Verified Allergy, Severe, 07/07/20) mental issues DINH RODRIGUEZ M.D. May 20, 2021 12:02
[~2021-05-20 14:46] MED LIST changes: -BELL16.218 PR; -GASTROGRAFIN SOLUTION 30ML (Q9963) As Ordered ONE; -ISOVUE-370 76% 100ML VIAL As Ordered ONE; -OXYB5TAB10 PO
[2021-05-20] MEDS ORDERED: LR 1,000 ML IV ONE (16:07)
[2021-05-20] MEDS ORDERED: propofoL 200 MG/20 ML VIAL As Ordered ONE (16:11)
[2021-05-20] MEDS ORDERED: fentaNYL 100 MCG/2 ML INJECTION (J3010) As Ordered ONE (16:11)
[2021-05-20] MEDS ORDERED: KETOROLAC 60MG 2ML VIAL As Ordered ONE (16:11)
[2021-05-20] MEDS ORDERED: LIDOCAINE 2% 100MG/5ML SDV (FOR ANES.) As Ordered ONE (16:11)
[2021-05-20] MEDS ORDERED: ONDANSETRON 4MG/2ML VIAL As Ordered ONE (16:11)
[2021-05-20] MEDS ORDERED: MIDAZOLAM INJ 2MG/2ML VIAL (J2250 PER 1MG) As Ordered ONE (16:11)
[2021-05-20] MEDS ORDERED: dexameTHASONE 4 MG/ML 1ML VIAL (J1100 PER 1MG) As Ordered ONE (16:11)
[2021-05-20] MEDS ORDERED: CLINDAMYCIN 900 MG in IV 1 EA IV ONE (16:50)
[2021-05-20] MEDS ORDERED: CLINDAMYCIN 900 MG/50 ML PREMIX BAG As Ordered ONE (16:52)
[2021-05-20] MEDS ORDERED: CONRAY-60 60% 50ML VIAL (Q9961) As Ordered ONE (16:53)
--- NOTE | 2021-05-20 17:59 | REP ---
INDICATION: RIGHT STENT PLACEMENT. COMPARISON: CT abdomen 05/19/2021 TECHNIQUE: Three images from C-arm fluoroscopy provided to Dr. Guevara of the urology division FINDINGS: Initial image shows contrast in the ureter. The 2nd image showing contrast filling the collecting system with the calices sharply marginated. Third image shows a double pigtail stent coiled proximally in the renal pelvis and distally in the bladder. IMPRESSION: 1. Status post placement of right internal ureteral double pigtail stent without evidence of ureteral obstruction or hydronephrosis on the post placement image. 2. Fluoroscopy time: 19 seconds. <Electronically signed by Benito Tsai > 05/20/21 [id number]
[2021-05-20] MEDS ORDERED: METOCLOPRAMIDE INJ 10MG/2ML VIAL (J2765 PER 1) IV PRN (18:10)
[2021-05-20] MEDS ORDERED: LR 1,000 ML IV SCH (18:10)
[2021-05-20] MEDS ORDERED: ONDANSETRON 4MG/2ML VIAL IV PRN (18:10)
[2021-05-20] MEDS: fentaNYL 100 MCG/2 ML INJECTION (J3010) IV PRN ×4 (18:25→18:44)
[2021-05-20] MEDS: PERCOCET 5MG/325MG TAB PO PRN ×2 (18:26→20:03)
[2021-05-20] MEDS ORDERED: KETOROLAC 30 MG/ML 1ML VIAL IV ONE (20:25)
[2021-05-20] MEDS ORDERED: oxyBUTYnin 5 MG TAB PO ONE (20:30)
--- NOTE | 2021-05-20 20:36 | ROOPDOC ---
[facility] Report Of Operation Report of Operation DATE OF PROCEDURE: 05/20/21 PREPROCEDURE DIAGNOSES: MICROSCOPIC HEMATURIA, RIGHT RENAL COLIC AND NEPHROLITHIASIS POSTPROCEDURE DIAGNOSES: same PROCEDURE PERFORMED: cystoscopy, right retrograde pyelogram and ureteral stent insertion SURGEON: DINH RODRIGUEZ MD USER INTERFACE DEVELOPER: NONE ANESTHESIA: GENERAL LMA ESTIMATED BLOOD LOSS: Approximately 1 mL. 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 DESCRIPTION OF PROCEDURE: PATIENT WAS TAKEN TO THE OR AND TIME OUT AND CONSENT VERIFIED. SHE RECEIVED IV CLINDAMYCIN. SHE UNDERWENT GENERAL ANESTHESIA WITH LMA. WAS PLACED IN THE DORSOLITHOTOMY POSITION AND PREPPED AND DRAPED IN THE USUAL STERILE FASHION. A 21 FR CYSTOSCOPE WAS INTRODUCED INTO THE URETHRA AND BLADDER, WHICH WAS UNREMARKABLE. . THE LEFT WAS NORMAL . A 5 FR OPEN CATHETER WAS INTRODUCED INTO THE RIGHT URETERAL ORIFICE AND RETROGRADE PYELOGRAM DEMONSTRATED NORMAL URETER. A 6 FR URETERAL STENT WAS INSERTED INTO THE KIDNEY AND DISTAL COIL SLIPPED INTO THE URETER. A MINISEMIRIDGID URETERSCOPE WAS USED TO LOCATE THE STENT IN THE DISTAL URETER AND GRASP WITH AN NGAGE BASKET AND PULLED INTO THE BLADDER. THE BLADDER WAS DRAINED. PATIENT WAS AWAKENED AND TRANSFERRED TO THE PACU. SHE WILL BE DISCHARGED HOME AND F/U IN THE UROLOGY CLINIC TO SCHEDULE URETEROSCOPY AND REFER TO FELLING BUCKING SUPERVISOR FOR THE 2 CM CALCIFIED PELVIS LESION SEEN ON CT. DINH RODRIGUEZ M.D. May 20, 2021 19:33
[2021-05-20] MEDS: NS 1,000 ML IV SCH (21:00)
[2021-05-20] MEDS ORDERED: NS 1,000 ML IV ONE (21:00)
[2021-05-20] MEDS ORDERED: HYDROMORPHONE HCL 0.5 MG/ 0.5 ML SYRINGE (J1170 PER 1) IV ONE (21:05)
[2021-05-20 22:30] VITALS: BP 128/75
[2021-05-20 23:00] VITALS: BP 126/75
[2021-05-21] VITALS (7 sets, daily range): BP systolic 110–135; BP diastolic 57–88
--- NOTE | 2021-05-21 00:24 | HPEPDOC ---
[facility] Medical History & Physical Date of Admission May 20, 2021 Date of Service: May 20, 2021 History and Physical CHIEF COMPLAINT: Intractable right flank pain HISTORY OF PRESENT ILLNESS: 46-year-old female with history of 4 to 5 mm renal stones with mild hydronephrosis complaint of right flank pain seen by her urologist And status post cystoscopy with right retrograde pyelogram and insertion of right ureteral stent on May 20, 2021 while in PACU patient continues to have severe pain 10 out of 10 despite intravenous fentanyl Toradol and Percocet, admitted for observation for pain control. Patient denies any fever nausea vomiting describes as the pain is stabbing and persistent without any radiation. No complaints of gross hematuria, but admits to bladder spasms which improve with oxybutynin. 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 REVIEW OF SYSTEMS: 10 point review of systems negative aside from positive findings in HPI HOME MEDICATIONS: Please see below. PHYSICAL EXAMINATION: VITAL SIGNS: See below GENERAL APPEARANCE: No respiratory distress awake alert oriented no cyanosis HEENT: No JVD thyromegaly cervical lymphadenopathy moist mucous membranes CARDIOVASCULAR: S1-S2 sinus rhythm LUNGS: Clear to auscultation no wheezing rales or rhonchi ABDOMEN: Positive bowel sounds soft right CVA tenderness no rebound or guarding EXTREMITIES: No cyanosis clubbing or pitting edema LABORATORY DATA: See below. IMAGING: See below MICROBIOLOGY: Please see below. ASSESSMENT: 46-year-old female with history of renal stones hydronephrosis kidney stents depression anxiety prior history of type 2 diabetes status post insulin status post cystoscopy with right ureteral stent placement admitted for observation for pain control. Right renal stones with mild hydronephrosis/obstructive uropathy status post cystoscopy and stent placement with intractable pain admitted for pain control for observation started on IV fluids IV Toradol 30 mg every 6 hourly and Percocet 1 tablet every 6 hourly antiemetics as needed Anxiety depression Resume sertraline Prior history of type 2 diabetes Check A1c in the morning DVT prophylaxis with compression stockings Vital Signs Vital Signs Date Time Temp Pulse Resp B/P (MAP) Pulse Ox O2 Delivery O2 Flow Rate FiO2 05/20/21 22:10 98.7 92 14 114/62 (79) 95 Room Air Laboratory Data Labs 24H Laboratory Tests 2 05/20/21 13:13: Coronavirus (COVID-19)(PCR) NEGATIVE Home Medications Scheduled Sertraline HCl (Sertraline HCl) 100 Mg Tablet, 100 MG PO DAILY Scheduled PRN Ketorolac Tromethamine (Ketorolac Tromethamine) 10 Mg Tablet, 1 TAB PO Q6HP PRN for pain Oxycodone HCl/Acetaminophen (Oxycodone-Acetaminophen 5-325) 1 Each Tablet, 1 TAB PO QIDP PRN for pain Allergies Coded Allergies: Penicillins (Verified Allergy, Intermediate, 05/20/21) hives Sulfa (Sulfonamide Antibiotics) (Verified Allergy, Intermediate, 05/20/21) hives aspirin (Unverified Allergy, Unknown, 05/20/21) alprazolam (Verified Adverse Reaction, Intermediate, AGGRESSIVE MOODS CHANGES, 05/20/21) codeine (Verified Adverse Reaction, Intermediate, 05/20/21) metal issues morphine (Verified Adverse Reaction, Intermediate, 05/20/21) mental issues A-FIB/CHADSVASC A-FIB History Current/History of A-Fib/PAF?: No Current PO Anticoag Therapy: No Age/Risk Factor Scoring CHADSVASC: CHADSVASC Response (Comments) Value Age Risk Factor Age < 65 years old 0 Gender Risk Factor Female 1 Hx of CHF No 0 Hx of HTN No 0 Hx of Stroke/TIA/or VTE No 0 Hx of Diabetes Yes 1 Hx of Vascular Disease No 0 Total 2 Treatment Treatment ordered: NONE SOSA BORGES MD May 21, 2021 00:24
[2021-05-21] MEDS: PERCOCET 5MG/325MG TAB PO SCH ×4 (01:03→17:35)
[2021-05-21] MEDS: oxyBUTYnin 5 MG TAB PO PRN ×2 (01:03→09:11)
[2021-05-21] MEDS ORDERED: HYDROMORPHONE HCL 0.5 MG/ 0.5 ML SYRINGE (J1170 PER 1) IV ONE (02:00)
[2021-05-21] MEDS: KETOROLAC 30 MG/ML 1ML VIAL IV SCH ×4 (05:47→17:36)
[2021-05-21] MEDS ORDERED: SERTRALINE 100 MG TAB PO SCH (09:00)
[2021-05-21] MEDS: NS 1,000 ML IV SCH (09:07)
[2021-05-21] MEDS ORDERED: BELLADONNA 16.2mg/OPIUM 60mg 1 EA SUPP PR ONE (10:20)
[2021-05-21] MEDS ORDERED: BELL16.218 PR ×2 (16:11→17:00)
[2021-05-21] MEDS ORDERED: OXYB5TAB10 PO (16:42)
--- NOTE | 2021-05-21 16:46 | DS.PDOC ---
Discharge Summary General Date of Admission 05/21/2021 Date of Discharge 05/21/2021 Attending Physician: JONH PATINO MD Discharge Summary PROCEDURES PERFORMED DURING STAY: Cystoscopy with R stent placement ADMITTING DIAGNOSES: R flank pain DISCHARGE DIAGNOSES: Nonobstructive renal stones hydronephrosis prior history of type 2 diabetes depression anxiety COMPLICATIONS/CHIEF COMPLAINT: Cystoscopy R Uretheral Stent Placement. HISTORY OF PRESENT ILLNESS AND HOSPITAL COURSE: 46-year-old W with a history of 4 to 5 mm renal stones with mild hydronephrosis complaint of right flank pain seen by her urologist and was status post cysto scopy with right retrograde pyelogram and insertion of right ureteral stent on May 20, 2021 but while in PACU she continued to have severe pain 10 out of 10 despite intravenous fentanyl Toradol and Percocet and therefore admitted for observation for pain control. She denied any fever, nausea, vomiting describes as the pain is stabbing and persistent without any radiation at first and later was predominantly the bladder spasms that mildly responded to oxybutynin but were so severe with remission after belladonna suppository. She is otherwise doing well and will now be discharged home with BIDP belladonna suppositories for 2d durat ion with close PCP and urology follow up. DISCHARGE MEDICATIONS: Please see below. ALLERGIES: Please see below. PHYSICAL EXAMINATION ON DISCHARGE: VITAL SIGNS: Please see below. GENERAL APPEARANCE: No respiratory distress awake alert oriented no cyanosis HEENT: NCAT, EOMI, anicteric, moist mucous membranes CARDIOVASCULAR: RRR, S1-S2 sinus rhythm, no murmurs LUNGS: Clear to auscultation no wheezing rales or rhonchi ABDOMEN: Positive bowel sounds soft right CVA tenderness no rebound or guarding EXTREMITIES: No cyanosis clubbing or pitting edema LABORATORY DATA: Please see below. IMAGING: Retrograde pyelogram: Initial image shows contrast in the ureter. The 2nd image showing contrast filling the collecting system with the calices sharply marginated. Third image shows a double pigtail stent coiled proximally in the renal pelvis and distally in the bladder. IMPRESSION: 1. Status post placement of right internal ureteral double pigtail stent without evidence of ureteral obstruction or hydronephrosis on the post placement image. 2. Fluoroscopy time: 19 seconds. PROGNOSIS: good ACTIVITY: As tolerated DIET: Regular DISCHARGE PLAN: Home with close urology and PCP follow up DISPOSITION: Home DISCHARGE INSTRUCTIONS: Home with close urology and PCP follow up ITEMS TO FOLLOWUP ON ON OUTPATIENT: Kidney stone Flank pain and bladder spasm pain DISCHARGE CONDITION: Stable TIME SPENT ON DISCHARGE: 35 minutes. Vital Signs/I&Os Vital Signs Date Time Temp Pulse Resp B/P (MAP) Pulse Ox O2 Delivery O2 Flow Rate FiO2 05/21/21 14:00 98.8 91 13 122/69 (86) 96 Room Air 05/21/21 03:00 2.0 I&O- Last 24 Hours up to 6 AM 05/21/21 06:00 Intake Total 780 ml Output Total 775 ml Balance 5 ml Discharge Medications Scheduled Sertraline HCl (Sertraline HCl) 100 Mg Tablet, 100 MG PO DAILY, (Reported) Scheduled PRN Ketorolac Tromethamine (Ketorolac Tromethamine) 10 Mg Tablet, 1 TAB PO Q6HP PRN for pain Opium/Belladonna Alkaloids (Belladonna-Opium 16.2-30 Supp) 1 Each Supp.rect, 1 SUP MS BIDP PRN for BLADDER SPASM Oxycodone HCl/Acetaminophen (Oxycodone-Acetaminophen 5-325) 1 Each Tablet, 1 TAB PO QIDP PRN for pain Allergies Coded Allergies: Penicillins (Verified Allergy, Intermediate, 05/20/21) hives Sulfa (Sulfonamide Antibiotics) (Verified Allergy, Intermediate, 05/20/21) hives aspirin (Unverified Allergy, Unknown, 05/20/21) alprazolam (Verified Adverse Reaction, Intermediate, AGGRESSIVE MOODS CHANGES, 05/20/21) codeine (Verified Adverse Reaction, Intermediate, 05/20/21) metal issues morphine (Verified Adverse Reaction, Intermediate, 05/20/21) mental issues JONH PATINO MD May 21, 2021 16:46
== END 2021-05-21 18:36 | disposition home or self-care (01) ==
LOC: M SDC 14:46 → ENRESERVTM 22:01 → ENRESERVDT 22:01 → M MSPAV 22:21 → M SDC 05-21 18:36
PROVIDERS: ATTEND Urology
DX: N20.0 Calculus of kidney (principal); N13.30 Unspecified hydronephrosis; R31.29 Other microscopic hematuria; F41.9 Anxiety disorder, unspecified; F32.9 Major depressive disorder, single episode, unspecified; Z87.891 Personal history of nicotine dependence; Z88.0 Allergy status to penicillin; Z88.2 Allergy status to sulfonamides; Z88.5 Allergy status to narcotic agent; Z88.8 Allergy status to other drugs, medicaments and biological substances
CPT/HCPCS: 52332; 74420; 81025; 96361; 96374; 96375; 96376; C1769; C2617; J1100; J1170; J1885; J2250; J2405; J3010; Q9961; U0002

== ENCOUNTER → 2021-05-24 | Outpatient (CLI) | payer OTHER ==
[~2021-05-24] MED LIST changes: +BELL16.218 PR; +OXYB5TAB10 PO
[2021-05-24 16:47] LABS: CHOLESTEROL RISK RATIO 3.826 (<5); FREE T4 1.05 NG/DL (0.76-1.46); PTH INTACT 37.1 PG/ML (18.5-88.0); THYROID STIMULATING HORMONE 1.1 uIU/ML (0.358-3.740); TOTAL 25(OH) VITAMIN D 18.5 NG/ML (30.0-100.0); URIC ACID 4.8 MG/DL (2.6-6.0)
[2021-05-24 17:03] LABS: HEMOGLOBIN A1c 5.8 %
[2021-05-24 17:11] LABS: MAU/CREAT RATIO 481.9 MCG/MG (0.0-30.0)
== END ==
LOC: M PLALAB 13:58
PROVIDERS: ATTEND Family Medicine
DX: N20.0 Calculus of kidney (principal); R73.01 Impaired fasting glucose; E55.9 Vitamin D deficiency, unspecified

== ENCOUNTER 2021-05-27 07:37 | Day surgery (SDC) | payer OTHER ==
[~2021-05-27] VITALS: Ht 162.6 cm; Wt 78.8 kg
[~2021-05-27 07:37] MED LIST changes: +LIDOCAINE 1% MDV 20ML VIAL SQ PRN; +LIDOCAINE 2% 100MG/5ML SDV (FOR ANES.) As Ordered ONE; +MIDAZOLAM INJ 2MG/2ML VIAL (J2250 PER 1MG) As Ordered ONE; +ONDANSETRON 4MG/2ML VIAL As Ordered ONE; +dexameTHASONE 4 MG/ML 1ML VIAL (J1100 PER 1MG) As Ordered ONE; +fentaNYL 100 MCG/2 ML INJECTION (J3010) As Ordered ONE; +propofoL 500 MG/50 ML VIAL As Ordered ONE
[2021-05-27] MEDS ORDERED: LevoFLOXacin IV 500 MG in IV 1 EA IV ONE (07:55)
--- NOTE | 2021-05-27 08:14 | REP ---
INDICATION: KIDNEY STONE KUB BEFORE SDC. COMPARISON: Comparison study 20 May 2021.. TECHNIQUE: KUB. FINDINGS: A double pigtail ureteral stent remains in place on the right. There is a 6 mm calculus projecting at the lower pole of the right kidney. There is also a calcific opacity is similar sized projecting over the upper pole the left kidney. Bowel gas pattern is normal. IMPRESSION: Bilateral intrarenal nephrolithiasis. Right ureteral stent in place. <Electronically signed by Carlos Agrawal > 05/27/21 [id number]
[2021-05-27] MEDS ORDERED: LR 1,000 ML IV ONE (08:30)
--- NOTE | 2021-05-27 09:53 | ROOPDOC ---
[facility] Report Of Operation Report of Operation DATE OF PROCEDURE: 05/27/21 PREPROCEDURE DIAGNOSES: [right renal stones, right stent]. POSTPROCEDURE DIAGNOSES: [same]. PROCEDURE PERFORMED: [cysto with stent removal, eswl renal stone - both on right]. SURGEON: [Jack No, PLANNER CHIEF: [none], ANESTHESIA: [mac]. ESTIMATED BLOOD LOSS: Approximately [0] mL. COMPLICATIONS: [none]. REMARKS: [46yo wf. Recent bout of right flank pain. Stent placed. Imaging showed right renal stones x 2. Eswl and cysto with stent removal agreed upon. No guarantees given. Informed consent obtained. Risks discussed including infection, pain, bleeding, scarring, failure of surgery, need for more surgery, injury to gu tract and others.]. FINDINGS: SPECIMENS REMOVED: [stent] PROCEDURE NOTE: . DESCRIPTION OF PROCEDURE: [Met with pt in preop area. Discussed surgery. Preop kub reviewed. Pt brought to OR room. Surgery done under coverage of iv antibiotic. Time out performed. Mac anesthesia. Frog leg position. Well padded. Prep'd and draped in sterile fashion. Flexible cystoscopy performed. Stent removed with flexible grasper. Changed to supine position. Well padded. Fluoroscopy demonstrated stone x 1. Eswl performed. Fluoroscopy used intermittently. 2500 shocks given. Pt tolerated all well and left room in satisfactory condition.]. JORGE NO MD May 27, 2021 09:53
[2021-05-27] MEDS ORDERED: ePHEDrine SULFATE 25 MG/5 ML(5MG/ML) SYRINGE As Ordered ONE (09:59)
[2021-05-27] MEDS ORDERED: flumazeniL 0.5 MG/5 ML VIAL As Ordered ONE (10:25)
[2021-05-27] MEDS ORDERED: LR 1,000 ML IV SCH (10:40)
[2021-05-27] MEDS ORDERED: fentaNYL 100 MCG/2 ML INJECTION (J3010) IV PRN (10:40)
[2021-05-27] MEDS ORDERED: MEPERIDINE INJ 25 MG/ML VIAL (J2175) IV PRN (10:40)
[2021-05-27] MEDS ORDERED: ONDANSETRON 4MG/2ML VIAL IV PRN (10:40)
[2021-05-27] MEDS ORDERED: oxyCODONE 5MG TAB PO PRN (10:40)
[2021-05-27] MEDS ORDERED: KETOROLAC 30 MG/ML 1ML VIAL IV PRN (11:45)
[2021-05-27] MEDS ORDERED: oxyBUTYnin 5 MG TAB PO ONE (11:45)
[2021-05-27] MEDS ORDERED: ACETAMINOPHEN *IV* 1,000 MG IV ONE ×2 (11:45)
[2021-05-27 12:40] VITALS: BP 129/68
== END 2021-05-27 13:15 | disposition home or self-care (01) ==
LOC: M SDC 07:37
PROVIDERS: ATTEND Urology
DX: N20.0 Calculus of kidney (principal); I25.2 Old myocardial infarction; E11.9 Type 2 diabetes mellitus without complications; F41.9 Anxiety disorder, unspecified; F32.9 Major depressive disorder, single episode, unspecified; G40.89 Other seizures; Z79.899 Other long term (current) drug therapy; Z88.0 Allergy status to penicillin; Z88.5 Allergy status to narcotic agent; Z88.1 Allergy status to other antibiotic agents
CPT/HCPCS: 50590; 52310; 74018; J0131; J1100; J1885; J1956; J2250; J2405; J3010; U0002

== ENCOUNTER → 2021-06-09 | Outpatient (CLI) | payer OTHER ==
[~2021-06-09] MED LIST changes: -LIDOCAINE 1% MDV 20ML VIAL SQ PRN; -LIDOCAINE 2% 100MG/5ML SDV (FOR ANES.) As Ordered ONE; -MIDAZOLAM INJ 2MG/2ML VIAL (J2250 PER 1MG) As Ordered ONE; -ONDANSETRON 4MG/2ML VIAL As Ordered ONE; -dexameTHASONE 4 MG/ML 1ML VIAL (J1100 PER 1MG) As Ordered ONE; -fentaNYL 100 MCG/2 ML INJECTION (J3010) As Ordered ONE; -propofoL 500 MG/50 ML VIAL As Ordered ONE
--- NOTE | 2021-06-09 16:26 | REP ---
INDICATION: CALCULUS OF KIDNEY. COMPARISON: 05/27/2021 TECHNIQUE: KUB FINDINGS: Stool is superimposed over the right kidney and the right kidney not well evaluated on this examination for a calculus. Stool also superimposed over the left kidney. IMPRESSION: Limited exam for evaluation of the kidneys. <Electronically signed by Panchito Rapp > 06/09/21 [id number]
== END ==
LOC: M RAD 15:47 → M PLALAB 15:47
PROVIDERS: ATTEND Urology
DX: N20.0 Calculus of kidney (principal)

== ENCOUNTER → 2021-06-10 | Outpatient (REF) | payer OTHER | LOC: M SMT 17:11 | PROVIDERS: ATTEND Nurse Practitioner Women's Health | DX: N20.0 Calculus of kidney (principal) ==

== ENCOUNTER → 2021-06-14 | Outpatient (CLI) | payer OTHER ==
[2021-06-14 19:28] LABS: HEMATOCRIT 37.2 % (36.0-47.0); HEMOGLOBIN 12.3 g/dl (12.0-15.5); MEAN CORPUSCULAR HEMOGLOBIN 29.2 pg (27.0-33.0); MEAN CORPUSCULAR HGB CONC 33.1 g/dl (32.0-36.5); MEAN CORPUSCULAR VOLUME 88.4 fl (80.0-96.0); PLATELET COUNT, AUTOMATED 391 10^3/uL (150-450); RED BLOOD COUNT 4.21 10^6/uL (4.00-5.40); WHITE BLOOD COUNT 9.5 10^3/uL (4.0-10.0)
[2021-06-14 19:42] LABS: INR 0.93; PROTHROMBIN TIME 12.8 SECONDS (12.7-14.5)
[2021-06-14 19:50] LABS: BLOOD UREA NITROGEN 15 MG/DL (7-18); CALCIUM LEVEL 9.3 MG/DL (8.5-10.1); CARBON DIOXIDE LEVEL 26 MEQ/L (21-32); CHLORIDE LEVEL 111 MEQ/L (98-107); CREATININE FOR GFR 0.82 MG/DL (0.55-1.30); GLOMERULAR FILTRATION RATE > 60.0 (>58); GLUCOSE, FASTING 99 MG/DL (70-100); SODIUM LEVEL 142 MEQ/L (136-145)
[2021-06-14 19:55] LABS: APPEARANCE, URINE HAZY (CLEAR); BACTERIA, URINE AUTO NEGATIVE (NEGATIVE); BILIRUBIN, URINE AUTO NEGATIVE (NEGATIVE); BLOOD, URINE BLOOD NEGATIVE (NEGATIVE); COLOR, URINE YELLOW (YELLOW); GLUCOSE, URINE (UA) AUTO NEGATIVE (NEGATIVE); KETONE, URINE AUTO NEGATIVE (NEGATIVE); LEUKOCYTE ESTERASE, URINE AUTO NEGATIVE (NEGATIVE); MUCUS, URINE SMALL (NEGATIVE); NITRITE, URINE AUTO NEGATIVE (NEGATIVE); PROTEIN, URINE AUTO NEGATIVE (NEGATIVE); RBC, URINE AUTO 1 /HPF (0-3); SPECIFIC GRAVITY URINE AUTO 1.021 (1.002-1.035); SQUAMOUS EPITHELIAL CELL UR AU 4 /HPF (0-6); UROBILINOGEN, URINE AUTO 0.2 mg/dL (0.0-2.0); WBC, URINE AUTO 2 /HPF (0-3)
== END ==
LOC: M LAB 18:54
PROVIDERS: ATTEND Nurse Practitioner Women's Health
DX: N20.0 Calculus of kidney (principal)

== ENCOUNTER → 2021-06-19 | Outpatient (CLI) | payer OTHER ==
[~2021-06-19] MED LIST changes: +METF-838 PO; +VITA200016 PO; +ZOLO100T PO
== END ==
LOC: M LABSMTC 10:17
PROVIDERS: ATTEND Anesthesiology
DX: Z01.812 Encounter for preprocedural laboratory examination (principal); Z20.822 Contact with and (suspected) exposure to COVID-19

== ENCOUNTER 2021-06-24 06:05 | Day surgery (SDC) | payer OTHER ==
[~2021-06-24] VITALS: Ht 162.6 cm; Wt 79.8 kg
[~2021-06-24 06:05] MED LIST changes: +LIDOCAINE 1% MDV 20ML VIAL SQ PRN; +LR 1,000 ML IV ONE; +LevoFLOXacin IV 500 MG in IV 1 EA IV ONE
[2021-06-24] MEDS ORDERED: fentaNYL 100 MCG/2 ML INJECTION (J3010) As Ordered ONE (07:14)
[2021-06-24] MEDS ORDERED: propofoL 500 MG/50 ML VIAL As Ordered ONE (07:14)
[2021-06-24] MEDS ORDERED: MIDAZOLAM INJ 2MG/2ML VIAL (J2250 PER 1MG) As Ordered ONE (07:14)
[2021-06-24] MEDS ORDERED: LIDOCAINE 2% 100MG/5ML SDV (FOR ANES.) As Ordered ONE (07:14)
--- NOTE | 2021-06-24 07:40 | ROOPDOC ---
[facility] Report Of Operation Report of Operation DATE OF PROCEDURE: 06/24/21 PREPROCEDURE DIAGNOSES: [left renal stone]. POSTPROCEDURE DIAGNOSES: [same]. PROCEDURE PERFORMED: [eswl left renal stone]. SURGEON: [Amanda No], POLYMER SPECIALIST: [none], ANESTHESIA: [mac]. ESTIMATED BLOOD LOSS: Approximately [0] mL. COMPLICATIONS: [none]. REMARKS: [46yo wf. Left renal stone. Options discussed. Decision made to proceed with eswl. Eswl on right side was successful. No guarantees given. Risks discussed including infection, pain, bleeding, scarring, failure of surgery, need for more surgery, injury to gu tract and others.]. FINDINGS: SPECIMENS REMOVED: [none] PROCEDURE NOTE: . DESCRIPTION OF PROCEDURE: [Met with pt in preop area and surgery again discussed. Pt wished to proceed. Pt brought to OR room. Supine on lithotripter. Well padded. Mac anesthesia initiated. Time out performed. Fluoroscopy used to locate stone. Upper pole left renal stone noted. Eswl performed. 2500 shocks. Power increased throughout. Fluoroscopy used intermittently. Pt tolerated all well.]. JORGE NO MD Jun 24, 2021 07:40
[2021-06-24] MEDS ORDERED: ONDANSETRON 4MG/2ML VIAL As Ordered ONE (07:54)
[2021-06-24] MEDS ORDERED: KETOROLAC 60MG 2ML VIAL As Ordered ONE (07:54)
[2021-06-24] MEDS ORDERED: dexameTHASONE 4 MG/ML 1ML VIAL (J1100 PER 1MG) As Ordered ONE (07:54)
[2021-06-24] MEDS ORDERED: HYDR-3713 PO (08:06)
[2021-06-24] MEDS ORDERED: ePHEDrine SULFATE 25 MG/5 ML(5MG/ML) SYRINGE As Ordered ONE (08:11)
--- NOTE | 2021-06-24 08:28 | REP ---
INDICATION: KUB BEFORE SDC COMPARISON: 06/09/2021 TECHNIQUE: Supine view of the abdomen and pelvis. FINDINGS: Evaluation is limited by overlying bowel gas. Punctate bilateral intrarenal calculi as well as possible 5 mm upper pole left renal stone. No bowel obstruction. No organomegaly. Skeletal structures are age-appropriate. Phleboliths noted in the pelvis. IMPRESSION: Limited examination. Findings suggest bilateral renal calculi <Electronically signed by Rober Sosa > 06/24/21 [id number]
[2021-06-24] MEDS ORDERED: fentaNYL 100 MCG/2 ML INJECTION (J3010) IV PRN (08:45)
[2021-06-24] MEDS ORDERED: ONDANSETRON 4MG/2ML VIAL IV PRN (08:45)
[2021-06-24] MEDS ORDERED: LR 1,000 ML IV SCH (08:45)
[2021-06-24 09:40] VITALS: BP 121/77
--- NOTE | 2021-06-24 10:09 | ECGEPIP ---
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
== END 2021-06-24 19:44 | disposition home or self-care (01) ==
LOC: M SDC 06:05
PROVIDERS: ATTEND Urology
DX: N20.0 Calculus of kidney (principal); E11.9 Type 2 diabetes mellitus without complications; Z87.891 Personal history of nicotine dependence; Z79.84 Long term (current) use of oral hypoglycemic drugs; Z79.899 Other long term (current) drug therapy; Z88.0 Allergy status to penicillin; Z88.2 Allergy status to sulfonamides; Z88.5 Allergy status to narcotic agent; Z88.8 Allergy status to other drugs, medicaments and biological substances; F41.9 Anxiety disorder, unspecified; F32.9 Major depressive disorder, single episode, unspecified
CPT/HCPCS: 50590; 74018; 81025; 93005; J1885; J2250; J2405; J3010

== ENCOUNTER → 2021-08-04 | Outpatient (CLI) | payer OTHER ==
[~2021-08-04] MED LIST changes: +HYDR-3713 PO; -LIDOCAINE 1% MDV 20ML VIAL SQ PRN; -LR 1,000 ML IV ONE; -LevoFLOXacin IV 500 MG in IV 1 EA IV ONE
== END ==
LOC: M LABSMTC 10:08
PROVIDERS: ATTEND Anesthesiology
DX: Z01.812 Encounter for preprocedural laboratory examination (principal); Z20.822 Contact with and (suspected) exposure to COVID-19

== ENCOUNTER 2021-08-09 09:21 | Day surgery (SDC) | payer OTHER ==
[2021-08-09] VITALS (7 sets, daily range): BP systolic 112–170; BP diastolic 61–102; O2SAT 96
[~2021-08-09] VITALS: Ht 160 cm; Wt 79.4 kg
[~2021-08-09 09:21] MED LIST changes: +LIDOCAINE 1% MDV 20ML VIAL SQ PRN; +LR 1,000 ML IV ONE; +ceFAZolin SOD 2 GM in IV 1 EA IV ONE
[2021-08-09 10:47] LABS: HEMATOCRIT 39.8 % (36.0-47.0); HEMOGLOBIN 12.8 g/dl (12.0-15.5); MEAN CORPUSCULAR HEMOGLOBIN 28.5 pg (27.0-33.0); MEAN CORPUSCULAR HGB CONC 32.2 g/dl (32.0-36.5); MEAN CORPUSCULAR VOLUME 88.6 fl (80.0-96.0); PLATELET COUNT, AUTOMATED 354 10^3/uL (150-450); RED BLOOD COUNT 4.49 10^6/uL (4.00-5.40); WHITE BLOOD COUNT 6.7 10^3/uL (4.0-10.0)
[2021-08-09] MEDS ORDERED: ONDANSETRON 4MG/2ML VIAL As Ordered ONE (11:35)
[2021-08-09] MEDS ORDERED: dexameTHASONE 4 MG/ML 1ML VIAL (J1100 PER 1MG) As Ordered ONE (11:35)
[2021-08-09] MEDS ORDERED: propofoL 200 MG/20 ML VIAL As Ordered ONE (11:35)
[2021-08-09] MEDS ORDERED: LIDOCAINE 2% 100MG/5ML SDV (FOR ANES.) As Ordered ONE (11:35)
[2021-08-09] MEDS ORDERED: fentaNYL 250 MCG/5 ML INJECTION (J3010) As Ordered ONE (11:35)
[2021-08-09] MEDS ORDERED: ROCURONIUM BROMIDE 50 MG/5 ML VIAL As Ordered ONE ×2 (11:35→12:50)
[2021-08-09] MEDS ORDERED: MIDAZOLAM INJ 2MG/2ML VIAL (J2250 PER 1MG) As Ordered ONE (11:35)
[2021-08-09] MEDS: BUPIVACAINE HCL 0.25% 10ML VIAL As Ordered ONE ×2 (12:22→12:31)
[2021-08-09] MEDS ORDERED: KETOROLAC 60MG 2ML VIAL As Ordered ONE (13:03)
[2021-08-09] MEDS ORDERED: SUGAMMADEX SODIUM 500 MG/5 ML VIAL (BRIDION) As Ordered ONE (13:03)
[2021-08-09] MEDS ORDERED: ACETAMINOPHEN 1000MG 100ML IV BTL (OFIRMEV) (J0131 PER 10MG) As Ordered ONE (13:03)
[2021-08-09] MEDS ORDERED: HYDROmorphone HCL 2 MG/ML 1ML VIAL As Ordered ONE (13:10)
[2021-08-09] MEDS ORDERED: fentaNYL 100 MCG/2 ML INJECTION (J3010) IV PRN (13:55)
[2021-08-09] MEDS ORDERED: ONDANSETRON 4MG/2ML VIAL IV PRN ×2 (13:55→14:00)
[2021-08-09] MEDS ORDERED: PERCOCET 5MG/325MG TAB PO PRN ×2 (13:55→14:05)
[2021-08-09] MEDS ORDERED: LR 1,000 ML IV SCH (13:55)
[2021-08-09] MEDS ORDERED: METOCLOPRAMIDE INJ 10MG/2ML VIAL (J2765 PER 1) IV PRN (13:55)
[2021-08-09] MEDS ORDERED: MORPHINE 4 MG/ML 1ML VIAL/SYRINGE (J2270) IV PRN (14:05)
--- NOTE | 2021-08-09 14:11 | ROOPDOC ---
[facility] Report Of Operation Report of Operation DATE OF PROCEDURE: 08/09/21 OPERATIVE REPORT: Preoperative diagnosis: Menorrhagia Postoperative diagnosis: Same Procedure: Robotic-assisted laparoscopic hysterectomy, bilateral salpingectomy, cystoscopy. Surgeon: Norman Dixon M.D. Engineer Design And Construction: Soraida Candelaria NP EBL: 275 mL's. Urine output: 10 mL's. Operative summary: Patient was taken to the operating room where general endotracheal anesthesia was induced. She was prepped and draped in sterile fashion in the dorsal lithotomy position. A Jean Catheter was placed. A V care uterine manipulator was placed. A Periumbilical incision was made with a scalpel. A Veress needle was placed through this incision. Intra-abdominal location of Veress needle was assessed with saline filled syringe. A pneumoperitoneum was created. The Veress needle was removed. An 8 mm trocar using the Faniumiport was inserted through this incision. Three 8 mm suprapubic ports were placed under direct visualization The patient was placed in Trendelenburg position. The da Anatoliy surgical robot was docked to the ports. Using the fenestrated bipolar instrument and vessel sealer, the utero-ovarian ligaments and broad ligaments were coagulated and incised. The round ligaments were coagulated and incised. The anterior and posterior leaves of the broad ligament were . Bladder flap was created. The uterine vessels were coagulated and incised using monopolar Endo Lucas. A colpotomy was created in the upper vagina at the level of the V care Cup. The specimen including the uterus, cervix, and fallopian tubes was removed through the vagina. The vaginal cuff was closed with #1 V lock suture in running fashion. Cystoscopy was performed using a 70 cystoscope. Bilateral ureteral jets were identified. No evidence of injury to the bladder. The cystoscope was removed. A 1.5 cm pedunculated fibroid was noted coming off the cervix at the juncture of the right uterosacral ligament. This was excised with Endo-Lucas and removed through the vagina. All instruments removed. The skin was closed with 4-0 Monocryl subcuticular sutures. Soraida Candelaria NP assisted with all aspects of the procedure. She helped position the patient. She helped insert the ports and manipulate the uterus. She removed the specimen. NORMAN DIXON MD Aug 09, 2021 14:11
[2021-08-09] MEDS ORDERED: OXYC1TAB23 PO (14:12)
[2021-08-09] MEDS ORDERED: IBUP-1022 PO (14:13)
[2021-08-09] MEDS ORDERED: NALOXONE INJ 0.4MG/1ML VIAL (J2310 PER 1MG) IV STA ×2 (15:54→16:16)
[2021-08-09] MEDS ORDERED: NALOXONE INJ 0.4MG/1ML VIAL (J2310 PER 1MG) As Ordered ONE (15:55)
--- NOTE | 2021-08-09 16:23 | IPNPDOC ---
Text Note Date of Service The patient was seen on 08/09/21. NOTE Rapid assessment - Patient had rapid assessment called at 4:01 PM Subjective: Patient is a 46-year-old female who is s/p laparoscopic hysterectomy a few hours prior. Patient was in the PACU and brought up to 5 michael. Patient was noted to have tremulous motion of her head and was thought to have a seizure a rapid assessment was called. Multiple providers have arrived at the bedside to help evaluate patient; Myself, Dr. Lewis, Dr. Quintana, Dr. Morin, Dr. Macias. Objective: Vitals: Patient was hemodynamically stable, although tachycardic General: Lying in bed, tremulous, oriented to person, follows commands HEENT: NC, AT CVS: +S1S2 Lungs: Fair air entry b/l, -w/r/r Abdomen: Soft, ND, NT, +Laparoscopic incisions noted Extremities: - Edema Neuro: Moving all 4 extremities A/P: Non-responsive / Minimal responsive - possibly 2/2 opiates - Patient was given a dose of Naloxone 0.4 - Quickly became responsive; Now fully oriented to person, place and time; answe ring questions appropriately - Will get basic lab work - Attending provider was notified about change in status VS,Jignae, I+O VS, Jignae, I+O Laboratory Tests 08/09/21 10:27 Vital Signs Date Time Temp Pulse Resp B/P (MAP) Pulse Ox O2 Delivery O2 Flow Rate FiO2 08/09/21 15:30 99.3 97 6 151/81 (104) 95 Nasal Cannula 3.0 PEDRO RATLIFF MD Aug 09, 2021 16:23
[2021-08-09 16:47] LABS: BASO % 0.2 % (0.0-1.0); HEMATOCRIT 38.7 % (36.0-47.0); HEMOGLOBIN 12.7 g/dl (12.0-15.5); LYMPH # 0.7 10^3/uL (1.5-5.0); LYMPH % 4.3 % (24.0-44.0); MEAN CORPUSCULAR HEMOGLOBIN 29.2 pg (27.0-33.0); MEAN CORPUSCULAR HGB CONC 32.8 g/dl (32.0-36.5); MONO # 0.1 10^3/uL (0.0-0.8); MONO % 0.9 % (2.0-8.0); NEUTROPHILS # 14.5 10^3/uL (1.5-8.5); NEUTROPHILS % 94.1 % (36.0-66.0); PLATELET COUNT, AUTOMATED 362 10^3/uL (150-450); RED BLOOD COUNT 4.35 10^6/uL (4.00-5.40); WHITE BLOOD COUNT 15.4 10^3/uL (4.0-10.0)
[2021-08-09 17:20] LABS: ALBUMIN 3.3 GM/DL (3.2-5.2); ALT/SGPT 26 U/L (12-78); BILIRUBIN,TOTAL 0.4 MG/DL (0.2-1.0); BLOOD UREA NITROGEN 12 MG/DL (7-18); CALCIUM LEVEL 8.1 MG/DL (8.5-10.1); CARBON DIOXIDE LEVEL 25 MEQ/L (21-32); CHLORIDE LEVEL 106 MEQ/L (98-107); GLOMERULAR FILTRATION RATE > 60.0 (>58); GLUCOSE, FASTING 174 MG/DL (70-100); MAGNESIUM LEVEL 2.1 MG/DL (1.8-2.4); POTASSIUM SERUM 3.8 MEQ/L (3.5-5.1); SODIUM LEVEL 139 MEQ/L (136-145); TOTAL PROTEIN 6.7 GM/DL (6.4-8.2)
[2021-08-09] MEDS: KETOROLAC 30 MG/ML 1ML VIAL IV PRN ×2 (18:12→23:59)
[2021-08-09] MEDS: LR 1,000 ML IV SCH ×2 (18:13→22:00)
[2021-08-09] MEDS: DOCUSATE SODIUM 100MG CAPSULE PO SCH (20:21)
[2021-08-10 01:04] VITALS: BP 124/67
[2021-08-10] MEDS ORDERED: PERCOCET 5MG/325MG TAB PO ONE (01:10)
[2021-08-10] MEDS: LR 1,000 ML IV SCH (01:24)
[2021-08-10 05:24] VITALS: BP 111/69
[2021-08-10] MEDS: KETOROLAC 30 MG/ML 1ML VIAL IV PRN (05:47)
[2021-08-10] MEDS: DOCUSATE SODIUM 100MG CAPSULE PO SCH (10:02)
== END 2021-08-10 11:50 | disposition home or self-care (01) ==
LOC: M SDC 09:21 → M MS5PR 15:25 → M SDC 08-10 11:50
PROVIDERS: ATTEND Specialist
DX: N93.9 Abnormal uterine and vaginal bleeding, unspecified (principal); D25.9 Leiomyoma of uterus, unspecified; Z88.0 Allergy status to penicillin; Z88.2 Allergy status to sulfonamides; Z88.5 Allergy status to narcotic agent; Z88.8 Allergy status to other drugs, medicaments and biological substances
CPT/HCPCS: 36415; 58571; 80053; 81025; 83605; 83735; 85025; 85027; 88307; 96361; 96374; 96375; 96376; J0131; J0690; J1100; J1170; J1885; J2250; J2310; J2405; J3010; S2900

== ENCOUNTER 2021-12-10 09:36 | Emergency (ER) | payer MEDICAID, OTHER ==
[~2021-12-10] VITALS: Ht 162.6 cm; Wt 80.6 kg
[~2021-12-10 09:36] MED LIST changes: +IBUP-1022 PO; -LIDOCAINE 1% MDV 20ML VIAL SQ PRN; -LR 1,000 ML IV ONE; -ceFAZolin SOD 2 GM in IV 1 EA IV ONE
[2021-12-10] MEDS ORDERED: KETOROLAC 30 MG/ML 1ML VIAL IV ONE (11:40)
[2021-12-10] MEDS ORDERED: ONDANSETRON 4MG/2ML VIAL IV ONE (11:40)
[2021-12-10] MEDS ORDERED: NS 1,000 ML IV ONE (11:40)
[2021-12-10 12:00] LABS: BASO % 0.5 % (0.0-1.0); EOS # 0.1 10^3/uL (0.0-0.5); EOS % 0.8 % (0.0-3.0); HEMATOCRIT 39.4 % (36.0-47.0); LYMPH # 1.5 10^3/uL (1.5-5.0); LYMPH % 17.9 % (24.0-44.0); MEAN CORPUSCULAR HEMOGLOBIN 28.9 pg (27.0-33.0); MEAN CORPUSCULAR VOLUME 87.6 fl (80.0-96.0); MONO # 0.8 10^3/uL (0.0-0.8); MONO % 9.7 % (2.0-8.0); NEUTROPHILS # 5.9 10^3/uL (1.5-8.5); NEUTROPHILS % 70.7 % (36.0-66.0); PLATELET COUNT, AUTOMATED 335 10^3/uL (150-450); WHITE BLOOD COUNT 8.3 10^3/uL (4.0-10.0)
[2021-12-10] MEDS ORDERED: ISOVUE-370 76% 100ML VIAL As Ordered ONE (12:17)
[2021-12-10 12:30] LABS: ACETONE/KETONE 1.66 MG/DL (<2.81); ALBUMIN 3.7 GM/DL (3.2-5.2); BILIRUBIN,DIRECT 0.1 MG/DL (0.0-0.2); BILIRUBIN,TOTAL 0.5 MG/DL (0.2-1.0); TOTAL PROTEIN 6.7 GM/DL (6.4-8.2)
[2021-12-10 13:09] LABS: HEMOGLOBIN A1c 5.7 %
[2021-12-10] MEDS ORDERED: cefTRIAXone SOD 1 GM in D5W MINI-BAG PLUS 50 ML IV ONE (14:35)
[2021-12-10] MEDS ORDERED: TAMSULOSIN 0.4 MG CAP PO ONE (14:55)
[2021-12-10] MEDS ORDERED: KETO10TAB PO (15:06)
[2021-12-10] MEDS ORDERED: FLOM0.4C39 PO (15:06)
[2021-12-10] MEDS ORDERED: ONDA4TAB6 PO (15:06)
[2021-12-10] MEDS ORDERED: CIPR-249 PO (15:08)
[2021-12-10 15:53] VITALS: BP 133/79
== END 2021-12-10 15:54 | disposition home or self-care (01) ==
LOC: M ED 09:36
DX: N13.2 Hydronephrosis with renal and ureteral calculous obstruction (principal); N30.00 Acute cystitis without hematuria; K42.9 Umbilical hernia without obstruction or gangrene; E11.9 Type 2 diabetes mellitus without complications; R56.9 Unspecified convulsions; Z88.0 Allergy status to penicillin; Z88.1 Allergy status to other antibiotic agents; Z88.6 Allergy status to analgesic agent; Z79.899 Other long term (current) drug therapy
CPT/HCPCS: 36415; 74177; 80047; 80076; 81001; 82010; 83036; 83690; 85025; 87088; 87186; 96361; 96365; 96375; 99284; J0696; J1885; J2405; Q9967

== ENCOUNTER 2021-12-12 13:33 | Inpatient (IN) | payer OTHER ==
[~2021-12-12] VITALS: Ht 162.6 cm; Wt 82.9 kg
[~2021-12-12 13:33] MED LIST changes: +FLOM0.4C39 PO; +ONDA4TAB6 PO
[2021-12-12] MEDS ORDERED: NS 1,000 ML IV ONE ×2 (13:55→16:10)
[2021-12-12] MEDS ORDERED: ONDANSETRON 4MG/2ML VIAL IV ONE (13:55)
[2021-12-12] MEDS ORDERED: KETOROLAC 30 MG/ML 1ML VIAL IV ONE (13:55)
[2021-12-12] MEDS ORDERED: KETOROLAC 30 MG/ML 1ML VIAL As Ordered ONE (14:09)
[2021-12-12 14:10] LABS: BASO % 0.6 % (0.0-1.0); EOS # 0.1 10^3/uL (0.0-0.5); HEMATOCRIT 37.7 % (36.0-47.0); HEMOGLOBIN 12.3 g/dl (12.0-15.5); LYMPH # 1.7 10^3/uL (1.5-5.0); LYMPH % 24.9 % (24.0-44.0); MEAN CORPUSCULAR HEMOGLOBIN 28.7 pg (27.0-33.0); MEAN CORPUSCULAR HGB CONC 32.6 g/dl (32.0-36.5); MEAN CORPUSCULAR VOLUME 88.1 fl (80.0-96.0); MONO # 0.7 10^3/uL (0.0-0.8); MONO % 9.5 % (2.0-8.0); NEUTROPHILS # 4.3 10^3/uL (1.5-8.5); NEUTROPHILS % 62.7 % (36.0-66.0); PLATELET COUNT, AUTOMATED 326 10^3/uL (150-450); RED BLOOD COUNT 4.28 10^6/uL (4.00-5.40); WHITE BLOOD COUNT 6.8 10^3/uL (4.0-10.0)
[2021-12-12] MEDS ORDERED: fentaNYL 100 MCG/2 ML INJECTION IV ONE ×2 (14:20→15:35)
[2021-12-12 14:33] LABS: BLOOD UREA NITROGEN 13 MG/DL (7-18); CALCIUM LEVEL 8.6 MG/DL (8.5-10.1); CARBON DIOXIDE LEVEL 26 MEQ/L (21-32); CHLORIDE LEVEL 109 MEQ/L (98-107); GLOMERULAR FILTRATION RATE > 60.0 (>58); GLUCOSE, FASTING 113 MG/DL (70-100); POTASSIUM SERUM 4.2 MEQ/L (3.5-5.1); SODIUM LEVEL 140 MEQ/L (136-145)
[2021-12-12] MEDS ORDERED: TAMSULOSIN 0.4 MG CAP PO ONE (16:10)
[2021-12-12] MEDS ORDERED: LIDOCAINE 2% 5ML JELLY UROJET TOP ONE (16:15)
[2021-12-12] MEDS ORDERED: PERCOCET 5MG/325MG TAB PO PRN (16:50)
[2021-12-12] MEDS: NS 1,000 ML IV SCH (16:50)
[2021-12-12] MEDS ORDERED: MOM 30ML SUSPENSION UDC PO PRN (16:50)
[2021-12-12] MEDS ORDERED: CIPR500T39 PO (17:44)
[2021-12-12] MEDS ORDERED: ONDA-83 PO (17:44)
[2021-12-12] MEDS ORDERED: FLOM0.4C39 PO (17:44)
[2021-12-12] MEDS ORDERED: KETO10TAB PO (17:44)
[2021-12-12] MEDS: PERCOCET 5MG/325MG TAB PO ONE ×2 (17:47→18:09)
[2021-12-12] MEDS ORDERED: HOME MED LIST COMPLETE! XX SCH (17:50)
[2021-12-12 19:24] LABS: RSV AMPLIFICATION NEGATIVE (NEGATIVE)
[2021-12-12] MEDS: KETOROLAC 30 MG/ML 1ML VIAL IV PRN (21:01)
[2021-12-13] MEDS: NS 1,000 ML IV SCH ×3 (02:50→18:49)
[2021-12-13] MEDS: KETOROLAC 30 MG/ML 1ML VIAL IV PRN ×2 (05:39→15:41)
[2021-12-13] MEDS: ONDANSETRON 4MG/2ML VIAL IV PRN ×2 (05:39→23:54)
[2021-12-13] MEDS ORDERED: fentaNYL 100 MCG/2 ML INJECTION IV ONE (06:20)
[2021-12-13 08:11] LABS: HEMATOCRIT 34.8 % (36.0-47.0); HEMOGLOBIN 11.3 g/dl (12.0-15.5); MEAN CORPUSCULAR HGB CONC 32.5 g/dl (32.0-36.5); MEAN CORPUSCULAR VOLUME 89.2 fl (80.0-96.0); PLATELET COUNT, AUTOMATED 276 10^3/uL (150-450); WHITE BLOOD COUNT 6.7 10^3/uL (4.0-10.0)
[2021-12-13 08:35] LABS: BLOOD UREA NITROGEN 13 MG/DL (7-18); CALCIUM LEVEL 7.9 MG/DL (8.5-10.1); CARBON DIOXIDE LEVEL 24 MEQ/L (21-32); CHLORIDE LEVEL 114 MEQ/L (98-107); CREATININE FOR GFR 0.84 MG/DL (0.55-1.30); GLOMERULAR FILTRATION RATE > 60.0 (>58); GLUCOSE, FASTING 111 MG/DL (70-100); MAGNESIUM LEVEL 1.9 MG/DL (1.8-2.4); POTASSIUM SERUM 4.1 MEQ/L (3.5-5.1); SODIUM LEVEL 144 MEQ/L (136-145)
[2021-12-13] MEDS ORDERED: fentaNYL 100 MCG/2 ML INJECTION IV PRN (08:50)
[2021-12-13] MEDS: ENOXAPARIN 40MG/0.4ML SYRINGE (J1650 PER 10MG) SC SCH (09:02)
[2021-12-13] MEDS: TAMSULOSIN 0.4 MG CAP PO SCH (09:03)
[2021-12-13] MEDS: ACETAMINOPHEN TAB 650MG DOSE (2X325MG) PO PRN (11:04)
[2021-12-13 11:30] VITALS: BP 143/69
[2021-12-13] MEDS: HYDROMORPHONE HCL 0.5 MG/ 0.5 ML SYRINGE (J1170 PER 1) IV PRN ×2 (11:48→18:50)
[2021-12-13 14:00] VITALS: BP 122/68
[2021-12-13] MEDS: SERTRALINE 100 MG TAB PO SCH (21:23)
[2021-12-13 22:00] VITALS: BP 132/63
[2021-12-14] VITALS (7 sets, daily range): BP systolic 126–153; BP diastolic 48–90
[2021-12-14] MEDS: HYDROMORPHONE HCL 0.5 MG/ 0.5 ML SYRINGE (J1170 PER 1) IV PRN ×3 (01:49→14:28)
[2021-12-14] MEDS: KETOROLAC 30 MG/ML 1ML VIAL IV PRN ×2 (02:52→09:56)
[2021-12-14] MEDS: NS 1,000 ML IV SCH ×2 (04:45→16:05)
[2021-12-14 06:18] LABS: HEMATOCRIT 33.5 % (36.0-47.0); HEMOGLOBIN 10.6 g/dl (12.0-15.5); MEAN CORPUSCULAR HEMOGLOBIN 28.5 pg (27.0-33.0); MEAN CORPUSCULAR HGB CONC 31.6 g/dl (32.0-36.5); MEAN CORPUSCULAR VOLUME 90.1 fl (80.0-96.0); PLATELET COUNT, AUTOMATED 292 10^3/uL (150-450); RED BLOOD COUNT 3.72 10^6/uL (4.00-5.40); WHITE BLOOD COUNT 7.3 10^3/uL (4.0-10.0)
[2021-12-14 06:47] LABS: BLOOD UREA NITROGEN 9 MG/DL (7-18); CALCIUM LEVEL 7.9 MG/DL (8.5-10.1); CARBON DIOXIDE LEVEL 25 MEQ/L (21-32); CHLORIDE LEVEL 112 MEQ/L (98-107); CREATININE FOR GFR 0.87 MG/DL (0.55-1.30); GLOMERULAR FILTRATION RATE > 60.0 (>58); GLUCOSE, FASTING 136 MG/DL (70-100); POTASSIUM SERUM 3.6 MEQ/L (3.5-5.1); SODIUM LEVEL 143 MEQ/L (136-145)
[2021-12-14] MEDS: ACETAMINOPHEN TAB 650MG DOSE (2X325MG) PO PRN (07:37)
[2021-12-14] MEDS: ENOXAPARIN 40MG/0.4ML SYRINGE (J1650 PER 10MG) SC SCH (07:59)
[2021-12-14] MEDS: TAMSULOSIN 0.4 MG CAP PO SCH (08:46)
[2021-12-14] MEDS ORDERED: TAMSULOSIN 0.4 MG CAP PO SCH (09:00)
[2021-12-14] MEDS ORDERED: LevoFLOXacin IV 500 MG in IV 1 EA IV SCH (09:20)
[2021-12-14] MEDS: LevoFLOXacin IV 750 MG in IV 1 EA IV SCH (09:56)
[2021-12-14] MEDS: ONDANSETRON 4MG/2ML VIAL IV PRN ×2 (11:15→21:00)
[2021-12-14] MEDS ORDERED: CONRAY-60 60% 50ML VIAL (Q9961) As Ordered ONE (18:52)
[2021-12-14] MEDS ORDERED: MIDAZOLAM INJ 2MG/2ML VIAL (J2250 PER 1MG) As Ordered ONE (19:03)
[2021-12-14] MEDS ORDERED: ONDANSETRON 4MG/2ML VIAL As Ordered ONE (19:04)
[2021-12-14] MEDS ORDERED: LIDOCAINE 2% 100MG/5ML SDV (FOR ANES.) As Ordered ONE (19:04)
[2021-12-14] MEDS ORDERED: fentaNYL 100 MCG/2 ML INJECTION As Ordered ONE (19:04)
[2021-12-14] MEDS ORDERED: dexameTHASONE 4 MG/ML 1ML VIAL (J1100 PER 1MG) As Ordered ONE (19:06)
[2021-12-14] MEDS ORDERED: ROCURONIUM BROMIDE 50 MG/5 ML VIAL As Ordered ONE (19:09)
[2021-12-14] MEDS ORDERED: ACETAMINOPHEN 1000MG 100ML IV BTL (OFIRMEV) (J0131 PER 10MG) As Ordered ONE (19:51)
[2021-12-14] MEDS ORDERED: KETOROLAC 60MG 2ML VIAL As Ordered ONE (19:51)
[2021-12-14] MEDS ORDERED: SUGAMMADEX SODIUM 500 MG/5 ML VIAL (BRIDION) As Ordered ONE (19:57)
[2021-12-14] MEDS ORDERED: BELLADONNA 16.2mg/OPIUM 60mg 1 EA SUPP PR PRN (20:00)
[2021-12-14] MEDS ORDERED: traMADol 50 MG TAB PO PRN (20:35)
[2021-12-14] MEDS ORDERED: METOCLOPRAMIDE INJ 10MG/2ML VIAL (J2765 PER 1) As Ordered ONE (20:37)
[2021-12-14] MEDS: SERTRALINE 100 MG TAB PO SCH (22:22)
[2021-12-15 00:45] VITALS: BP 123/74
[2021-12-15] MEDS: KETOROLAC 30 MG/ML 1ML VIAL IV PRN ×2 (01:22→08:33)
[2021-12-15 01:45] VITALS: BP 120/74
[2021-12-15 02:45] VITALS: BP 117/73
[2021-12-15 05:55] LABS: HEMATOCRIT 35.9 % (36.0-47.0); HEMOGLOBIN 11.8 g/dl (12.0-15.5); MEAN CORPUSCULAR HEMOGLOBIN 28.8 pg (27.0-33.0); MEAN CORPUSCULAR HGB CONC 32.9 g/dl (32.0-36.5); MEAN CORPUSCULAR VOLUME 87.6 fl (80.0-96.0); PLATELET COUNT, AUTOMATED 313 10^3/uL (150-450); WHITE BLOOD COUNT 7.8 10^3/uL (4.0-10.0)
[2021-12-15 06:00] VITALS: BP 124/71
[2021-12-15 06:12] LABS: CALCIUM LEVEL 9.1 MG/DL (8.5-10.1); CREATININE FOR GFR 1.15 MG/DL (0.55-1.30); GLOMERULAR FILTRATION RATE 53.6 (>58)
[2021-12-15] MEDS: oxyBUTYnin 5 MG TAB PO PRN ×2 (08:33→14:41)
[2021-12-15] MEDS: ENOXAPARIN 40MG/0.4ML SYRINGE (J1650 PER 10MG) SC SCH (08:34)
[2021-12-15] MEDS: LevoFLOXacin IV 750 MG in IV 1 EA IV SCH (10:30)
[2021-12-15] MEDS ORDERED: OXYB5TAB10 PO (13:30)
[2021-12-15] MEDS ORDERED: KETO10TAB PO (13:30)
[2021-12-15] MEDS ORDERED: BOSU PR (13:30)
[2021-12-15 14:00] VITALS: BP 120/74
[2021-12-15] MEDS ORDERED: OXYB-54 PO (14:27)
== END 2021-12-15 15:15 | disposition home or self-care (01) | DRG 443 ==
LOC: M ED 13:33 → M ED INP 16:46 → ENRESERV 12-13 10:25 → M MSPAV 12-13 11:13 → OBSVTOIN 12-14 13:23
PROVIDERS: ADMIT Internal Medicine; ATTEND Internal Medicine
PROC: 0TC08ZZ Extirpation of Matter from Right Kidney, Via Natural or Artificial Opening Endoscopic (ICD-10-PCS; 2021-12-14)
PROC: 0T788DZ Dilation of Bilateral Ureters with Intraluminal Device, Via Natural or Artificial Opening Endoscopic (ICD-10-PCS; 2021-12-14)
PROC: 0TC78ZZ Extirpation of Matter from Left Ureter, Via Natural or Artificial Opening Endoscopic (ICD-10-PCS; principal; 2021-12-14 16:30)
DX: N13.2 Hydronephrosis with renal and ureteral calculous obstruction (principal); F32.A Depression, unspecified; E11.9 Type 2 diabetes mellitus without complications; F41.9 Anxiety disorder, unspecified; Z79.899 Other long term (current) drug therapy; Z88.0 Allergy status to penicillin; Z88.2 Allergy status to sulfonamides; Z88.5 Allergy status to narcotic agent; Z88.8 Allergy status to other drugs, medicaments and biological substances; Z20.822 Contact with and (suspected) exposure to COVID-19

== ENCOUNTER → 2022-03-23 | Outpatient (CLI) | payer OTHER ==
[~2022-03-23] MED LIST changes: +BOSU PR; +CIPR500T39 PO; +ONDA-83 PO; +OXYB-54 PO
[2022-03-23 11:30] LABS: FREE T3 2.2 PG/ML (2.2-4.0); FREE T4 0.65 NG/DL (0.76-1.46); THYROID PEROXIDASE ANTIBODY 28.4 U/ML (<60.0); THYROID STIMULATING HORMONE 1.53 uIU/ML (0.358-3.740)
== END ==
LOC: M LAB 09:45
PROVIDERS: ATTEND Physician Assistant
DX: Z13.29 Encounter for screening for other suspected endocrine disorder (principal)

== ENCOUNTER → 2022-03-30 | Outpatient (CLI) | payer OTHER ==
[2022-03-30 08:08] LABS: BASO # 0.1 10^3/uL (0.0-0.2); BASO % 0.6 % (0.0-1.0); EOS # 0.2 10^3/uL (0.0-0.5); EOS % 2.5 % (0.0-3.0); HEMATOCRIT 39.7 % (36.0-47.0); HEMOGLOBIN 12.8 g/dl (12.0-15.5); LYMPH # 2.7 10^3/uL (1.5-5.0); LYMPH % 30.3 % (24.0-44.0); MEAN CORPUSCULAR HEMOGLOBIN 28.6 pg (27.0-33.0); MEAN CORPUSCULAR HGB CONC 32.2 g/dl (32.0-36.5); MEAN CORPUSCULAR VOLUME 88.6 fl (80.0-96.0); MONO # 0.9 10^3/uL (0.0-0.8); NEUTROPHILS # 4.9 10^3/uL (1.5-8.5); NEUTROPHILS % 56.1 % (36.0-66.0); PLATELET COUNT, AUTOMATED 337 10^3/uL (150-450); RED BLOOD COUNT 4.48 10^6/uL (4.00-5.40); WHITE BLOOD COUNT 8.8 10^3/uL (4.0-10.0)
[2022-03-30 08:47] LABS: ALBUMIN 3.8 GM/DL (3.2-5.2); ALT/SGPT 38 U/L (12-78); BILIRUBIN,TOTAL 0.3 MG/DL (0.2-1.0); BLOOD UREA NITROGEN 16 MG/DL (7-18); CALCIUM LEVEL 9.3 MG/DL (8.5-10.1); CARBON DIOXIDE LEVEL 26 MEQ/L (21-32); CHLORIDE LEVEL 108 MEQ/L (98-107); FREE T4 0.77 NG/DL (0.76-1.46); GLOMERULAR FILTRATION RATE > 60.0 (>58); GLUCOSE, FASTING 100 MG/DL (70-100); POTASSIUM SERUM 4.2 MEQ/L (3.5-5.1); SODIUM LEVEL 141 MEQ/L (136-145)
[2022-03-30 09:14] LABS: TOTAL 25(OH) VITAMIN D 22.3 NG/ML (30.0-100.0)
[2022-03-30 09:15] LABS: TESTOSTERONE 10 NG/DL (14-76)
[2022-03-30 09:16] LABS: FOLLICLE STIMULATING HORMONE 29.2 mIU/mL; LUTEINIZING HORMONE 24.9 mIU/mL; VITAMIN B12 LEVEL 264 PG/ML (247-911)
== END ==
LOC: M LAB 07:34
PROVIDERS: ATTEND Physician Assistant
DX: R63.5 Abnormal weight gain (principal)

== ENCOUNTER → 2022-04-13 | Outpatient (CLI) | payer OTHER | LOC: M WHC 07:26 | PROVIDERS: ATTEND Physician Assistant | DX: E03.9 Hypothyroidism, unspecified (principal) ==

== ENCOUNTER → 2022-05-18 | Outpatient (CLI) | payer OTHER ==
[2022-05-18 08:45] LABS: BASO # 0.1 10^3/uL (0.0-0.2); BASO % 0.7 % (0.0-1.0); EOS # 0.2 10^3/uL (0.0-0.5); EOS % 2.9 % (0.0-3.0); HEMATOCRIT 40.1 % (36.0-47.0); LYMPH # 2.2 10^3/uL (1.5-5.0); LYMPH % 29.3 % (24.0-44.0); MEAN CORPUSCULAR HGB CONC 32.4 g/dl (32.0-36.5); MEAN CORPUSCULAR VOLUME 89.5 fl (80.0-96.0); MONO # 0.9 10^3/uL (0.0-0.8); MONO % 11.7 % (2.0-8.0); NEUTROPHILS # 4.2 10^3/uL (1.5-8.5); NEUTROPHILS % 55.1 % (36.0-66.0); PLATELET COUNT, AUTOMATED 339 10^3/uL (150-450); RED BLOOD COUNT 4.48 10^6/uL (4.00-5.40); WHITE BLOOD COUNT 7.5 10^3/uL (4.0-10.0)
[2022-05-18 09:20] LABS: ALBUMIN 4.1 GM/DL (3.2-5.2); ALT/SGPT 31 U/L (12-78); BILIRUBIN,TOTAL 0.3 MG/DL (0.2-1.0); BLOOD UREA NITROGEN 27 MG/DL (7-18); CALCIUM LEVEL 9.6 MG/DL (8.5-10.1); CARBON DIOXIDE LEVEL 27 MEQ/L (21-32); CHLORIDE LEVEL 108 MEQ/L (98-107); FREE T4 0.84 NG/DL (0.76-1.46); GLOMERULAR FILTRATION RATE > 60.0 (>58); GLUCOSE, FASTING 114 MG/DL (70-100); POTASSIUM SERUM 4.5 MEQ/L (3.5-5.1); SODIUM LEVEL 141 MEQ/L (136-145); TOTAL PROTEIN 7.2 GM/DL (6.4-8.2)
== END ==
LOC: M LAB 08:03
PROVIDERS: ATTEND Physician Assistant
DX: E03.9 Hypothyroidism, unspecified (principal)

== ENCOUNTER → 2022-08-15 | Outpatient (CLI) | payer OTHER | LOC: M RAD 12:28 | PROVIDERS: ATTEND Urology | DX: N20.0 Calculus of kidney (principal); K59.00 Constipation, unspecified ==

== ENCOUNTER → 2022-08-18 | Outpatient (CLI) | payer OTHER ==
[2022-08-18 18:50] LABS: BASO # 0.1 10^3/uL (0.0-0.2); BASO % 0.9 % (0.0-1.0); EOS # 0.1 10^3/uL (0.0-0.5); EOS % 1.8 % (0.0-3.0); HEMATOCRIT 37.9 % (36.0-47.0); HEMOGLOBIN 12.8 g/dl (12.0-15.5); LYMPH % 25.1 % (24.0-44.0); MEAN CORPUSCULAR HEMOGLOBIN 29.5 pg (27.0-33.0); MEAN CORPUSCULAR HGB CONC 33.8 g/dl (32.0-36.5); MEAN CORPUSCULAR VOLUME 87.3 fl (80.0-96.0); MONO # 0.9 10^3/uL (0.0-0.8); MONO % 10.9 % (2.0-8.0); NEUTROPHILS # 4.8 10^3/uL (1.5-8.5); NEUTROPHILS % 60.9 % (36.0-66.0); PLATELET COUNT, AUTOMATED 364 10^3/uL (150-450); RED BLOOD COUNT 4.34 10^6/uL (4.00-5.40); WHITE BLOOD COUNT 7.9 10^3/uL (4.0-10.0)
[2022-08-18 19:25] LABS: ALBUMIN 3.9 GM/DL (3.2-5.2); ALT/SGPT 35 U/L (12-78); BILIRUBIN,TOTAL 0.3 MG/DL (0.2-1.0); BLOOD UREA NITROGEN 16 MG/DL (7-18); CALCIUM LEVEL 8.7 MG/DL (8.5-10.1); CARBON DIOXIDE LEVEL 27 MEQ/L (21-32); CHLORIDE LEVEL 108 MEQ/L (98-107); CREATININE FOR GFR 0.85 MG/DL (0.55-1.30); FREE T4 0.78 NG/DL (0.76-1.46); GLOMERULAR FILTRATION RATE > 60.0 (>58); GLUCOSE, FASTING 95 MG/DL (70-100); POTASSIUM SERUM 4.2 MEQ/L (3.5-5.1); SODIUM LEVEL 139 MEQ/L (136-145); THYROID STIMULATING HORMONE 0.453 uIU/ML (0.358-3.740); TOTAL PROTEIN 7.3 GM/DL (6.4-8.2)
[2022-08-18 20:47] LABS: HEMOGLOBIN A1c 5.8 %
== END ==
LOC: M LAB 18:26
PROVIDERS: ATTEND Physician Assistant
DX: E03.9 Hypothyroidism, unspecified (principal); E88.81 Metabolic syndrome and other insulin resistance

== ENCOUNTER → 2022-08-19 | Outpatient (REF) | payer OTHER ==
[2022-08-19 14:39] LABS: APPEARANCE, URINE MANUAL CLOUDY (CLEAR)
[2022-08-19 14:40] LABS: BILIRUBIN, URINE MANUAL NEGATIVE (NEGATIVE); BLOOD URINE MANUAL NEGATIVE (NEGATIVE); COLOR, URINE MANUAL LT YELLOW (YELLOW); GLUCOSE, URINE (UA) MANUAL NEGATIVE (NEGATIVE); KETONE, URINE MANUAL NEGATIVE (NEGATIVE); LEUKOCYTE ESTERASE, URINE MAN NEGATIVE (NEGATIVE); NITRITE, URINE MANUAL NEGATIVE (NEGATIVE); PROTEIN, URINE MANUAL NEGATIVE (NEGATIVE); SPECIFIC GRAVITY,URINE MANUAL 1.025 (1.002-1.035); UROBILINOGEN, URINE MANUAL NORMAL (NORMAL)
[2022-08-19 15:17] LABS: AMORPHOUS SEDIMENT, URINE LARGE AMOUNT (NEGATIVE); BACTERIA, URINE NONE SEEN; CALCIUM OXALATE CRYSTALS,URINE SMALL AMOUNT /hpf; RBC, URINE NONE SEEN /hpf (0-3); SQUAMOUS EPITHELIAL CELL URINE NONE SEEN /hpf (SMALL AMT); WBC, URINE NONE SEEN /hpf (0-3)
== END ==
LOC: M SMT 13:10
PROVIDERS: ATTEND Urology
DX: N23 Unspecified renal colic (principal)

== ENCOUNTER → 2022-09-13 | Outpatient (REF) ==
[~2022-09-13] MED LIST changes: -DOXY-350 PO; +DOXY-444 PO
[2022-09-13 14:17] LABS: RSV AMPLIFICATION NEGATIVE (NEGATIVE)
== END ==
LOC: M LABSMTC 11:46
PROVIDERS: ATTEND Family Medicine
DX: Z20.822 Contact with and (suspected) exposure to COVID-19 (principal)

== ENCOUNTER → 2022-10-12 | Outpatient (CLI) | payer OTHER ==
[2022-10-12 08:44] LABS: BASO # 0.1 10^3/uL (0.0-0.2); BASO % 0.7 % (0.0-1.0); EOS # 0.2 10^3/uL (0.0-0.5); EOS % 2.2 % (0.0-3.0); HEMOGLOBIN 12.9 g/dl (12.0-15.5); LYMPH # 1.6 10^3/uL (1.5-5.0); LYMPH % 22.7 % (24.0-44.0); MEAN CORPUSCULAR HEMOGLOBIN 29.1 pg (27.0-33.0); MEAN CORPUSCULAR HGB CONC 32.3 g/dl (32.0-36.5); MEAN CORPUSCULAR VOLUME 90.3 fl (80.0-96.0); MONO # 0.9 10^3/uL (0.0-0.8); MONO % 13.1 % (2.0-8.0); NEUTROPHILS # 4.3 10^3/uL (1.5-8.5); NEUTROPHILS % 61.2 % (36.0-66.0); PLATELET COUNT, AUTOMATED 370 10^3/uL (150-450); RED BLOOD COUNT 4.43 10^6/uL (4.00-5.40)
[2022-10-12 09:10] LABS: ALBUMIN 3.7 G/DL (3.2-5.2); ALKALINE PHOSPHATASE 99 U/L (46-116); ALT/SGPT 28 U/L (7.0-40); AST/SGOT 24 U/L (<34); BILIRUBIN,TOTAL 0.4 MG/DL (0.3-1.2); BLOOD UREA NITROGEN 14 MG/DL (9-23); CARBON DIOXIDE LEVEL 28 MMOL/L (20-31); CHLORIDE LEVEL 105 MMOL/L (98-107); CREATININE FOR GFR 0.75 MG/DL (0.55-1.30); GLOMERULAR FILTRATION RATE > 60.0 (>58); GLUCOSE, FASTING 111 MG/DL (60-100); POTASSIUM SERUM 4.7 MMOL/L (3.5-5.1); SODIUM LEVEL 138 MMOL/L (136-145); TOTAL PROTEIN 6.6 G/DL (5.7-8.2)
[2022-10-12 09:18] LABS: FREE T4 1.15 NG/DL (0.89-1.76); THYROID STIMULATING HORMONE 0.144 uIU/ML (0.55-4.78)
== END ==
LOC: M LAB 08:03
PROVIDERS: ATTEND Physician Assistant
DX: E03.9 Hypothyroidism, unspecified (principal)

== ENCOUNTER → 2022-12-06 | Outpatient (REF) | payer OTHER ==
[2022-12-09 23:07] LABS: ANTI TETANUS ANTIBODY 0.49 IU/mL (<0.10); BORDETELLA PERTUSSIS ABY IgG 1.48 index (0.00-0.94); DIPTHERIA ANTIBODY TITER 0.31 IU/mL (<0.10); MUMPS VIRUS IgG ANTIBODY 11.6 AU/mL (Immune >10.9)
== END ==
LOC: M LAB REF 21:20
PROVIDERS: ATTEND Physician Assistant Medical
DX: Z02.89 Encounter for other administrative examinations (principal)

== ENCOUNTER 2023-02-13 04:01 | Inpatient (IN) | payer OTHER ==
[~2023-02-13] VITALS: Ht 160 cm; Wt 91.0 kg
[2023-02-13] MEDS ORDERED: FURO20TA2 PO (04:17)
[2023-02-13] MEDS ORDERED: LEVO50TA5 PO (04:17)
[2023-02-13] MEDS ORDERED: TAMSULOSIN 0.4 MG CAP PO ONE (04:25)
[2023-02-13] MEDS ORDERED: NS 1,000 ML IV ONE ×3 (04:25→07:40)
[2023-02-13] MEDS ORDERED: MORPHINE 2 MG/ML 1ML VIAL IV PRN ×3 (04:25→23:15)
[2023-02-13] MEDS ORDERED: KETOROLAC 30 MG/ML 1ML VIAL IV ONE (04:25)
[2023-02-13] MEDS ORDERED: ONDANSETRON 4MG 2ML VIAL IV ONE (04:30)
[2023-02-13 04:33] LABS: BASO # 0.1 10^3/uL (0.0-0.2); BASO % 0.7 % (0.0-1.0); EOS # 0.3 10^3/uL (0.0-0.5); EOS % 2.6 % (0.0-3.0); HEMATOCRIT 40.9 % (36.0-47.0); HEMOGLOBIN 13.6 g/dl (12.0-15.5); LYMPH # 3.1 10^3/uL (1.5-5.0); LYMPH % 30.8 % (24.0-44.0); MEAN CORPUSCULAR HEMOGLOBIN 29.4 pg (27.0-33.0); MEAN CORPUSCULAR HGB CONC 33.3 g/dl (32.0-36.5); MEAN CORPUSCULAR VOLUME 88.3 fl (80.0-96.0); MONO % 10.3 % (2.0-8.0); NEUTROPHILS # 5.6 10^3/uL (1.5-8.5); NEUTROPHILS % 55.3 % (36.0-66.0); PLATELET COUNT, AUTOMATED 384 10^3/uL (150-450); RED BLOOD COUNT 4.63 10^6/uL (4.00-5.40); WHITE BLOOD COUNT 10.1 10^3/uL (4.0-10.0)
[2023-02-13 05:01] LABS: LIPASE 29 U/L (12-53)
[2023-02-13 05:04] LABS: ALBUMIN 3.9 G/DL (3.2-5.2); ALKALINE PHOSPHATASE 122 U/L (46-116); ALT/SGPT 40 U/L (7.0-40); AST/SGOT 29 U/L (<34); BILIRUBIN,DIRECT < 0.1 MG/DL (<0.4); BILIRUBIN,TOTAL 0.3 MG/DL (0.3-1.2); TOTAL PROTEIN 7.3 G/DL (5.7-8.2)
[2023-02-13] MEDS: fentaNYL 100 MCG/2 ML INJECTION IV PRN ×2 (05:05→06:02)
[2023-02-13 05:18] LABS: RSV AMPLIFICATION NEGATIVE (NEGATIVE)
[2023-02-13] MEDS ORDERED: INSULIN LISPRO (NovoLOG) PER UNIT SC SCH (06:00)
[2023-02-13] MEDS ORDERED: fentaNYL 100 MCG/2 ML INJECTION IV PRN ×2 (06:25→06:35)
[2023-02-13] MEDS ORDERED: SERT50TA29 PO (06:29)
[2023-02-13] MEDS ORDERED: HOME MED LIST COMPLETE! XX SCH (06:30)
[2023-02-13] MEDS ORDERED: D5W/0.45% SODIUM CHLORIDE 1,000 ML IV SCH (07:40)
[2023-02-13] MEDS ORDERED: HYDROMORPHONE HCL 0.5 MG/ 0.5 ML SYRINGE IV PRN ×4 (07:40→15:45)
[2023-02-13] MEDS ORDERED: KETOROLAC 30 MG/ML 1ML VIAL IV PRN (07:40)
[2023-02-13] MEDS ORDERED: DEXTROSE 50% 50ML SYRINGE IV PRN (07:40)
[2023-02-13] MEDS ORDERED: GLUCOSE 4GM CHEW TABLET PO PRN (07:40)
[2023-02-13] MEDS ORDERED: GLUCAGON INJ 1MG VIAL SC PRN (07:40)
[2023-02-13] MEDS ORDERED: CIPROFLOXACIN 400 MG in IV 1 EA IV SCH (09:00)
[2023-02-13] MEDS: MORPHINE 2 MG/ML 1ML VIAL IV PRN ×2 (09:04→13:32)
[2023-02-13] MEDS: LEVOTHYROXINE 50MCG TABLET (0.05MG) PO SCH (09:45)
[2023-02-13] MEDS: PERCOCET 5MG/325MG TAB PO PRN ×2 (09:45→14:30)
[2023-02-13] MEDS: KETOROLAC 30 MG/ML 1ML VIAL IV PRN ×2 (11:02→17:17)
[2023-02-13 15:00] VITALS: BP 154/85
[2023-02-13] MEDS: LR 1,000 ML IV SCH (15:26)
[2023-02-13 15:34] VITALS: BP 154/85
[2023-02-13] MEDS ORDERED: MORPHINE 2 MG/ML 1ML VIAL IV ONE (15:35)
[2023-02-13] MEDS: TAMSULOSIN 0.4 MG CAP PO SCH (15:44)
[2023-02-13] MEDS ORDERED: NALOXONE INJ 0.4MG/1ML VIAL IV PRN (15:45)
[2023-02-13] MEDS: ONDANSETRON 4MG 2ML VIAL IV PRN (17:21)
[2023-02-13] MEDS: SERTRALINE 100 MG TAB PO SCH (20:45)
[2023-02-13 20:48] VITALS: BP 126/74
[2023-02-13] MEDS: ACETAMINOPHEN TAB 650MG DOSE (2X325MG) PO PRN (22:15)
[2023-02-13] MEDS: MORPHINE 4 MG/ML 1ML VIAL IV PRN (23:22)
[2023-02-14] VITALS (9 sets, daily range): BP systolic 92–130; BP diastolic 52–74
[2023-02-14] MEDS: MORPHINE 4 MG/ML 1ML VIAL IV PRN ×4 (02:32→12:12)
[2023-02-14] MEDS: KETOROLAC 30 MG/ML 1ML VIAL IV PRN (04:09)
[2023-02-14 05:49] LABS: BASO % 0.4 % (0.0-1.0); EOS % 0.1 % (0.0-3.0); HEMATOCRIT 35.3 % (36.0-47.0); LYMPH # 0.6 10^3/uL (1.5-5.0); LYMPH % 5.8 % (24.0-44.0); MEAN CORPUSCULAR HEMOGLOBIN 29.4 pg (27.0-33.0); MEAN CORPUSCULAR HGB CONC 32.6 g/dl (32.0-36.5); MEAN CORPUSCULAR VOLUME 90.3 fl (80.0-96.0); MONO # 0.9 10^3/uL (0.0-0.8); MONO % 8.7 % (2.0-8.0); NEUTROPHILS # 8.9 10^3/uL (1.5-8.5); NEUTROPHILS % 84.6 % (36.0-66.0); PLATELET COUNT, AUTOMATED 249 10^3/uL (150-450); RED BLOOD COUNT 3.91 10^6/uL (4.00-5.40); WHITE BLOOD COUNT 10.5 10^3/uL (4.0-10.0)
[2023-02-14 05:54] LABS: HEMOGLOBIN 11.5 g/dl (12.0-15.5)
[2023-02-14] MEDS: LEVOTHYROXINE 50MCG TABLET (0.05MG) PO SCH (06:06)
[2023-02-14] MEDS: CIPROFLOXACIN 400 MG in IV 1 EA IV SCH ×2 (06:07→18:22)
[2023-02-14 06:09] LABS: CREATININE FOR GFR 1.53 MG/DL (0.55-1.30); GLOMERULAR FILTRATION RATE 38.4 (>58); POTASSIUM SERUM 4.1 MMOL/L (3.5-5.1)
[2023-02-14] MEDS: LR 1,000 ML IV SCH ×3 (07:50→21:02)
[2023-02-14] MEDS: TAMSULOSIN 0.4 MG CAP PO SCH (09:07)
[2023-02-14] MEDS: ACETAMINOPHEN TAB 650MG DOSE (2X325MG) PO PRN ×2 (09:13→20:56)
[2023-02-14] MEDS: ONDANSETRON 4MG 2ML VIAL IV PRN ×3 (10:15→20:56)
[2023-02-14] MEDS ORDERED: ACETAMINOPHEN 1000MG 100ML IV BAG IV ONE (10:25)
[2023-02-14] MEDS ORDERED: ISOVUE-300 61% 100ML VIAL As Ordered ONE (14:44)
[2023-02-14] MEDS ORDERED: MIDAZOLAM INJ 2MG/2ML VIAL As Ordered ONE (15:54)
[2023-02-14] MEDS ORDERED: fentaNYL 100 MCG/2 ML INJECTION As Ordered ONE (15:54)
[2023-02-14] MEDS ORDERED: propofoL 200 MG/20 ML VIAL As Ordered ONE (15:56)
[2023-02-14] MEDS ORDERED: LIDOCAINE 2% 100MG/5ML SDV (FOR ANES.) As Ordered ONE (15:56)
[2023-02-14] MEDS ORDERED: LIDOCAINE 2% 5ML JELLY UROJET As Ordered ONE (16:35)
[2023-02-14] MEDS ORDERED: ONDANSETRON 4MG 2ML VIAL As Ordered ONE (16:45)
[2023-02-14] MEDS ORDERED: ONDANSETRON 4MG 2ML VIAL IV PRN (17:05)
[2023-02-14] MEDS ORDERED: fentaNYL 100 MCG/2 ML INJECTION IV PRN (17:05)
[2023-02-14] MEDS ORDERED: oxyCODONE 5MG TAB PO PRN (17:05)
[2023-02-14] MEDS ORDERED: ACETAMINOPHEN 1000MG 100ML IV BAG IV STA (17:27)
[2023-02-14] MEDS ORDERED: GLUCOSE 4GM CHEW TABLET PO PRN (19:15)
[2023-02-14] MEDS ORDERED: GLUCAGON INJ 1MG VIAL SC PRN (19:15)
[2023-02-14] MEDS ORDERED: DEXTROSE 50% 50ML SYRINGE IV PRN (19:15)
[2023-02-14] MEDS: SERTRALINE 100 MG TAB PO SCH (20:56)
[2023-02-14] MEDS: HEPARIN SOD (PORCINE) 5000UNITS/ML 1ML VIAL/SYRINGE SQ SCH (21:01)
[2023-02-14] MEDS ORDERED: PROCHLORPERAZINE 10MG 2ML VIAL IV ONE (22:35)
[2023-02-14] MEDS ORDERED: diphenhydrAMINE 50MG/ML VIAL IV ONE (22:35)
[2023-02-15] VITALS (7 sets, daily range): BP systolic 115–137; BP diastolic 62–79
[2023-02-15] MEDS: ACETAMINOPHEN TAB 650MG DOSE (2X325MG) PO PRN ×3 (02:49→16:24)
[2023-02-15] MEDS: CIPROFLOXACIN 400 MG in IV 1 EA IV SCH ×2 (05:25→17:21)
[2023-02-15] MEDS: LR 1,000 ML IV SCH (05:27)
[2023-02-15] MEDS: LEVOTHYROXINE 50MCG TABLET (0.05MG) PO SCH (05:27)
[2023-02-15] MEDS: HEPARIN SOD (PORCINE) 5000UNITS/ML 1ML VIAL/SYRINGE SQ SCH ×3 (05:27→22:24)
[2023-02-15 06:37] LABS: BASO % 0.2 % (0.0-1.0); EOS % 0.1 % (0.0-3.0); HEMATOCRIT 32.3 % (36.0-47.0); HEMOGLOBIN 10.3 g/dl (12.0-15.5); LYMPH # 0.5 10^3/uL (1.5-5.0); LYMPH % 5.7 % (24.0-44.0); MEAN CORPUSCULAR HEMOGLOBIN 29.3 pg (27.0-33.0); MEAN CORPUSCULAR HGB CONC 31.9 g/dl (32.0-36.5); MEAN CORPUSCULAR VOLUME 91.8 fl (80.0-96.0); MONO # 0.7 10^3/uL (0.0-0.8); NEUTROPHILS # 7.3 10^3/uL (1.5-8.5); NEUTROPHILS % 85.3 % (36.0-66.0); PLATELET COUNT, AUTOMATED 195 10^3/uL (150-450); RED BLOOD COUNT 3.52 10^6/uL (4.00-5.40); WHITE BLOOD COUNT 8.5 10^3/uL (4.0-10.0)
[2023-02-15 06:56] LABS: BLOOD UREA NITROGEN 9 MG/DL (9-23); CARBON DIOXIDE LEVEL 26 MMOL/L (20-31); CHLORIDE LEVEL 109 MMOL/L (98-107); CREATININE FOR GFR 1.03 MG/DL (0.55-1.30); GLOMERULAR FILTRATION RATE > 60.0 (>58); GLUCOSE, FASTING 161 MG/DL (60-100); POTASSIUM SERUM 3.6 MMOL/L (3.5-5.1); SODIUM LEVEL 142 MMOL/L (136-145)
[2023-02-15 08:04] LABS: APPEARANCE, URINE CLEAR (CLEAR); BACTERIA, URINE AUTO 1+ (NEGATIVE); BILIRUBIN, URINE AUTO NEGATIVE (NEGATIVE); BLOOD, URINE BLOOD 2+ (NEGATIVE); COLOR, URINE STRAW (YELLOW); GLUCOSE, URINE (UA) AUTO NEGATIVE (NEGATIVE); KETONE, URINE AUTO NEGATIVE (NEGATIVE); LEUKOCYTE ESTERASE, URINE AUTO 2+ (NEGATIVE); MUCUS, URINE SMALL (NEGATIVE); NITRITE, URINE AUTO NEGATIVE (NEGATIVE); PROTEIN, URINE AUTO NEGATIVE (NEGATIVE); RBC, URINE AUTO 1 /HPF (0-3); SPECIFIC GRAVITY URINE AUTO 1.004 (1.002-1.035); SQUAMOUS EPITHELIAL CELL UR AU 0 /HPF (0-6); UROBILINOGEN, URINE AUTO 0.2 mg/dL (0.0-2.0); WBC, URINE AUTO 10 /HPF (0-3)
[2023-02-15] MEDS: TAMSULOSIN 0.4 MG CAP PO SCH (10:20)
[2023-02-15 11:53] LABS: MB/CK RELATIVE INDEX 0.24 (< OR =4)
[2023-02-15 12:59] LABS: CK-MB VALUE MASS 1.6 NG/ML (<3.6); MB/CK RELATIVE INDEX 0.18 (< OR =4)
[2023-02-15] MEDS ORDERED: PROCHLORPERAZINE 10MG 2ML VIAL IV PRN (17:05)
[2023-02-15] MEDS ORDERED: diphenhydrAMINE 50MG/ML VIAL IV ONE (17:10)
[2023-02-15] MEDS: SERTRALINE 100 MG TAB PO SCH (20:38)
[2023-02-16] MEDS: ACETAMINOPHEN TAB 650MG DOSE (2X325MG) PO PRN (00:46)
[2023-02-16] MEDS ORDERED: IBUPROFEN 400MG TAB PO ONE (03:00)
[2023-02-16 05:53] LABS: BASO % 0.5 % (0.0-1.0); EOS # 0.1 10^3/uL (0.0-0.5); EOS % 1.7 % (0.0-3.0); HEMATOCRIT 31.2 % (36.0-47.0); HEMOGLOBIN 9.9 g/dl (12.0-15.5); LYMPH # 1.2 10^3/uL (1.5-5.0); LYMPH % 18.6 % (24.0-44.0); MEAN CORPUSCULAR HEMOGLOBIN 28.9 pg (27.0-33.0); MEAN CORPUSCULAR HGB CONC 31.7 g/dl (32.0-36.5); MEAN CORPUSCULAR VOLUME 91.2 fl (80.0-96.0); NEUTROPHILS # 4.1 10^3/uL (1.5-8.5); NEUTROPHILS % 63.6 % (36.0-66.0); PLATELET COUNT, AUTOMATED 190 10^3/uL (150-450); RED BLOOD COUNT 3.42 10^6/uL (4.00-5.40); WHITE BLOOD COUNT 6.5 10^3/uL (4.0-10.0)
[2023-02-16] MEDS: CIPROFLOXACIN 400 MG in IV 1 EA IV SCH (05:58)
[2023-02-16] MEDS: HEPARIN SOD (PORCINE) 5000UNITS/ML 1ML VIAL/SYRINGE SQ SCH ×2 (05:58→13:42)
[2023-02-16] MEDS: LEVOTHYROXINE 50MCG TABLET (0.05MG) PO SCH (05:58)
[2023-02-16 06:00] VITALS: BP 121/58
[2023-02-16 06:27] LABS: BLOOD UREA NITROGEN 6 MG/DL (9-23); CALCIUM LEVEL 8.1 MG/DL (8.5-10.1); CARBON DIOXIDE LEVEL 28 MMOL/L (20-31); CHLORIDE LEVEL 108 MMOL/L (98-107); CREATININE FOR GFR 0.89 MG/DL (0.55-1.30); GLOMERULAR FILTRATION RATE > 60.0 (>58); GLUCOSE, FASTING 116 MG/DL (60-100); POTASSIUM SERUM 3.4 MMOL/L (3.5-5.1); SODIUM LEVEL 142 MMOL/L (136-145)
[2023-02-16] MEDS ORDERED: POTASSIUM CHLORIDE 10MEQ SR TABLET PO ONE (08:00)
[2023-02-16] MEDS: TAMSULOSIN 0.4 MG CAP PO SCH (08:42)
[2023-02-16] MEDS ORDERED: CIPR-249 PO (10:06)
[2023-02-16] MEDS ORDERED: FLOM0.4C39 PO (10:06)
[2023-02-16] MEDS ORDERED: LEVO1TAB40 PO (23:53)
[2023-02-16] MEDS ORDERED: KETO10TAB PO (23:55)
== END 2023-02-16 15:49 | disposition home health service (06) | DRG 465 ==
LOC: M ED 04:01 → INTOOBSV 07:37 → M ED INP 07:37 → M MSPAV 14:59 → OBSVTOIN 02-14 16:13
PROVIDERS: ADMIT General Practice; ATTEND Internal Medicine
PROC: 0T778DZ Dilation of Left Ureter with Intraluminal Device, Via Natural or Artificial Opening Endoscopic (ICD-10-PCS; principal; 2023-02-14 15:00)
DX: N13.2 Hydronephrosis with renal and ureteral calculous obstruction (principal); N17.9 Acute kidney failure, unspecified; E03.9 Hypothyroidism, unspecified; E11.9 Type 2 diabetes mellitus without complications; F32.A Depression, unspecified; D64.9 Anemia, unspecified; F41.9 Anxiety disorder, unspecified; R60.0 Localized edema; Z87.891 Personal history of nicotine dependence; Z79.890 Hormone replacement therapy; Z79.899 Other long term (current) drug therapy; Z88.0 Allergy status to penicillin; Z88.2 Allergy status to sulfonamides; Z88.5 Allergy status to narcotic agent; Z88.8 Allergy status to other drugs, medicaments and biological substances; Z88.4 Allergy status to anesthetic agent; D72.829 Elevated white blood cell count, unspecified

== ENCOUNTER 2023-02-16 19:14 | Emergency (ER) | payer OTHER ==
[~2023-02-16] VITALS: Ht 160 cm; Wt 90.9 kg
[~2023-02-16 19:14] MED LIST changes: +FURO20TA2 PO; +LEVO50TA5 PO; +SERT50TA29 PO
[2023-02-16] MEDS ORDERED: NS 1,000 ML IV ONE (19:40)
[2023-02-16] MEDS ORDERED: KETOROLAC 30 MG/ML 1ML VIAL IV ONE (19:40)
[2023-02-16] MEDS ORDERED: ISOVUE-370 76% 100ML VIAL As Ordered ONE (20:04)
[2023-02-16] MEDS ORDERED: ACETAMINOPHEN TAB 650MG DOSE (2X325MG) PO ONE (20:10)
[2023-02-16 20:26] LABS: BASO # 0.1 10^3/uL (0.0-0.2); BASO % 0.6 % (0.0-1.0); EOS # 0.2 10^3/uL (0.0-0.5); EOS % 2.1 % (0.0-3.0); HEMATOCRIT 33.6 % (36.0-47.0); HEMOGLOBIN 10.9 g/dl (12.0-15.5); LYMPH # 1.5 10^3/uL (1.5-5.0); LYMPH % 18.4 % (24.0-44.0); MEAN CORPUSCULAR HEMOGLOBIN 29.1 pg (27.0-33.0); MEAN CORPUSCULAR HGB CONC 32.4 g/dl (32.0-36.5); MEAN CORPUSCULAR VOLUME 89.6 fl (80.0-96.0); MONO # 1.4 10^3/uL (0.0-0.8); MONO % 17.2 % (2.0-8.0); NEUTROPHILS # 4.8 10^3/uL (1.5-8.5); NEUTROPHILS % 60.4 % (36.0-66.0); PLATELET COUNT, AUTOMATED 255 10^3/uL (150-450); RED BLOOD COUNT 3.75 10^6/uL (4.00-5.40)
[2023-02-16 20:56] LABS: ALBUMIN 3.2 G/DL (3.2-5.2); ALKALINE PHOSPHATASE 100 U/L (46-116); ALT/SGPT 73 U/L (7.0-40); AST/SGOT 98 U/L (<34); BILIRUBIN,DIRECT < 0.1 MG/DL (<0.4); BILIRUBIN,TOTAL 0.4 MG/DL (0.3-1.2); LIPASE 19 U/L (12-53); TOTAL PROTEIN 6.5 G/DL (5.7-8.2)
[2023-02-16 21:02] LABS: RSV AMPLIFICATION NEGATIVE (NEGATIVE)
[2023-02-16 23:45] VITALS: BP 143/78
[2023-02-16] MEDS ORDERED: LEVO1TAB40 PO (23:53)
[2023-02-16] MEDS ORDERED: KETO10TAB PO (23:55)
[2023-02-16] MEDS ORDERED: LevoFLOXacin 750 MG TABLET PO ONE (23:55)
== END 2023-02-17 00:45 | disposition home or self-care (01) ==
LOC: M ED 19:14
DX: R10.9 Unspecified abdominal pain (principal); J18.9 Pneumonia, unspecified organism; J90 Pleural effusion, not elsewhere classified; J98.11 Atelectasis; E11.9 Type 2 diabetes mellitus without complications; Z87.442 Personal history of urinary calculi; E03.9 Hypothyroidism, unspecified; F41.9 Anxiety disorder, unspecified; F32.A Depression, unspecified; Z90.710 Acquired absence of both cervix and uterus; Z88.0 Allergy status to penicillin; Z88.2 Allergy status to sulfonamides; Z88.5 Allergy status to narcotic agent; Z88.8 Allergy status to other drugs, medicaments and biological substances; Z96.0 Presence of urogenital implants; M51.27 Other intervertebral disc displacement, lumbosacral region; K76.0 Fatty (change of) liver, not elsewhere classified; Z79.899 Other long term (current) drug therapy

== ENCOUNTER → 2023-04-02 | Outpatient (CLI) | payer OTHER ==
[~2023-04-02] MED LIST changes: +LEVO1TAB40 PO
[2023-04-02 11:38] LABS: HEMATOCRIT 38.2 % (36.0-47.0); HEMOGLOBIN 12.4 g/dl (12.0-15.5); MEAN CORPUSCULAR HEMOGLOBIN 28.6 pg (27.0-33.0); MEAN CORPUSCULAR HGB CONC 32.5 g/dl (32.0-36.5); MEAN CORPUSCULAR VOLUME 88.2 fl (80.0-96.0); PLATELET COUNT, AUTOMATED 342 10^3/uL (150-450); RED BLOOD COUNT 4.33 10^6/uL (4.00-5.40); WHITE BLOOD COUNT 8.2 10^3/uL (4.0-10.0)
[2023-04-02 12:03] LABS: BLOOD UREA NITROGEN 19 MG/DL (9-23); CALCIUM LEVEL 8.6 MG/DL (8.5-10.1); CARBON DIOXIDE LEVEL 27 MMOL/L (20-31); CHLORIDE LEVEL 106 MMOL/L (98-107); CREATININE FOR GFR 0.77 MG/DL (0.55-1.30); GLOMERULAR FILTRATION RATE > 60.0 (>58); GLUCOSE, FASTING 102 MG/DL (60-100); POTASSIUM SERUM 4.6 MMOL/L (3.5-5.1); SODIUM LEVEL 139 MMOL/L (136-145)
== END ==
LOC: M LAB 11:19
PROVIDERS: ATTEND Urology
DX: Z01.818 Encounter for other preprocedural examination (principal); N20.0 Calculus of kidney

== ENCOUNTER → 2023-04-12 | Outpatient (REF) | payer OTHER | LOC: M SMT 15:39 | PROVIDERS: ATTEND Urology | DX: Z01.818 Encounter for other preprocedural examination (principal); N20.0 Calculus of kidney; N39.0 Urinary tract infection, site not specified ==

== ENCOUNTER 2023-04-17 06:07 | Day surgery (SDC) | payer OTHER ==
[~2023-04-17] VITALS: Ht 160 cm; Wt 90.5 kg
[~2023-04-17 06:07] MED LIST changes: +LevoFLOXacin IV 500 MG in IV 1 EA IV ONE
[2023-04-17] MEDS ORDERED: LIDOCAINE 2% 100MG/5ML SDV (FOR ANES.) As Ordered ONE (07:14)
[2023-04-17] MEDS ORDERED: ISOVUE-300 61% 100ML VIAL As Ordered ONE (07:14)
[2023-04-17] MEDS ORDERED: ONDANSETRON 4MG 2ML VIAL As Ordered ONE (07:14)
[2023-04-17] MEDS ORDERED: propofoL 200 MG/20 ML VIAL As Ordered ONE (07:14)
[2023-04-17] MEDS ORDERED: KETOROLAC 60MG 2ML VIAL As Ordered ONE (07:14)
[2023-04-17] MEDS ORDERED: fentaNYL 100 MCG/2 ML INJECTION As Ordered ONE (07:15)
[2023-04-17] MEDS ORDERED: MIDAZOLAM INJ 2MG/2ML VIAL As Ordered ONE (07:15)
[2023-04-17] MEDS ORDERED: ACETAMINOPHEN 1000MG 100ML IV BAG As Ordered ONE (08:04)
[2023-04-17] MEDS ORDERED: LR 1,000 ML IV SCH (08:25)
[2023-04-17] MEDS ORDERED: ONDANSETRON 4MG 2ML VIAL IV PRN (08:25)
[2023-04-17] MEDS ORDERED: KETOROLAC 30 MG/ML 1ML VIAL As Ordered ONE (08:35)
[2023-04-17] MEDS ORDERED: PERCOCET 5MG/325MG TAB PO PRN (08:45)
[2023-04-17] MEDS: fentaNYL 100 MCG/2 ML INJECTION IV PRN ×4 (09:00→09:16)
[2023-04-17] MEDS ORDERED: oxyBUTYnin 5 MG TAB PO PRN (10:50)
[2023-04-17] MEDS ORDERED: OXYB5TAB10 PO (12:32)
[2023-04-18] MEDS ORDERED: IBUP-1022 PO (19:57)
[2023-04-18] MEDS ORDERED: IBUP-1422 PO (19:57)
[2023-04-18] MEDS ORDERED: ACET325C5 PO (19:57)
[2023-04-20 11:40] VITALS: BP 130/74; TEMP 97.3; O2SAT 95
[2023-04-26 23:08] LABS: Amm Acid Urate 20 % (.)
== END 2023-04-17 11:35 | disposition home or self-care (01) ==
LOC: M SDC 06:07
PROVIDERS: ATTEND Urology
DX: N20.1 Calculus of ureter (principal); I25.2 Old myocardial infarction; E11.9 Type 2 diabetes mellitus without complications; I10 Essential (primary) hypertension; F41.9 Anxiety disorder, unspecified; F32.A Depression, unspecified; G40.909 Epilepsy, unspecified, not intractable, without status epilepticus; Z88.0 Allergy status to penicillin; Z88.2 Allergy status to sulfonamides; Z88.5 Allergy status to narcotic agent; Z88.8 Allergy status to other drugs, medicaments and biological substances; Z79.899 Other long term (current) drug therapy; E03.9 Hypothyroidism, unspecified
CPT/HCPCS: 52356; 74420; 82365; C1769; C1894; C2617; J0131; J1100; J1956; J2250; J2405; J3010; Q9967

== ENCOUNTER 2023-04-18 19:50 | Inpatient (IN) | payer OTHER ==
[~2023-04-18] VITALS: Ht 160 cm; Wt 92.8 kg
[~2023-04-18 19:50] MED LIST changes: +LINEZOLID 600 MG in IV 1 EA IV ONE; -LevoFLOXacin IV 500 MG in IV 1 EA IV ONE
[2023-04-18] MEDS ORDERED: IBUP-1422 PO (19:57)
[2023-04-18] MEDS ORDERED: ACET325C5 PO (19:57)
[2023-04-18] MEDS ORDERED: IBUP-1022 PO (19:57)
[2023-04-18] MEDS ORDERED: ACETAMINOPHEN 1000MG 100ML IV BAG IV ONE (22:00)
[2023-04-18] MEDS ORDERED: NS 1,000 ML IV ONE (22:00)
[2023-04-18 22:39] LABS: BASO # 0.1 10^3/uL (0.0-0.2); BASO % 0.5 % (0.0-1.0); EOS # 0.1 10^3/uL (0.0-0.5); EOS % 0.8 % (0.0-3.0); HEMATOCRIT 38.4 % (36.0-47.0); HEMOGLOBIN 12.6 g/dl (12.0-15.5); LYMPH # 1.9 10^3/uL (1.5-5.0); LYMPH % 14.7 % (24.0-44.0); MEAN CORPUSCULAR HGB CONC 32.8 g/dl (32.0-36.5); MEAN CORPUSCULAR VOLUME 88.5 fl (80.0-96.0); MONO % 11.8 % (2.0-8.0); NEUTROPHILS # 9.5 10^3/uL (1.5-8.5); NEUTROPHILS % 71.7 % (36.0-66.0); PLATELET COUNT, AUTOMATED 317 10^3/uL (150-450); RED BLOOD COUNT 4.34 10^6/uL (4.00-5.40); WHITE BLOOD COUNT 13.2 10^3/uL (4.0-10.0)
[2023-04-18 23:02] LABS: LIPASE 22 U/L (12-53)
[2023-04-18 23:03] LABS: MONO # 1.6 10^3/uL (0.0-0.8)
[2023-04-18 23:05] LABS: ALBUMIN 3.5 G/DL (3.2-5.2); ALKALINE PHOSPHATASE 95 U/L (46-116); ALT/SGPT 21 U/L (7.0-40); AST/SGOT 11 U/L (<34); BILIRUBIN,DIRECT 0.1 MG/DL (<0.4); BILIRUBIN,TOTAL 0.3 MG/DL (0.3-1.2); BLOOD UREA NITROGEN 15 MG/DL (9-23); CARBON DIOXIDE LEVEL 27 MMOL/L (20-31); CHLORIDE LEVEL 107 MMOL/L (98-107); CK-MB VALUE MASS < 1.0 NG/ML (<3.6); CPK CREATINE PHOSPHOKINASE 30 U/L (34-145); CREATININE FOR GFR 0.95 MG/DL (0.55-1.30); GLOMERULAR FILTRATION RATE > 60.0 (>58); GLUCOSE, FASTING 106 MG/DL (60-100); MB/CK RELATIVE INDEX 3.33 (< OR =4); SODIUM LEVEL 140 MMOL/L (136-145); TOTAL PROTEIN 6.4 G/DL (5.7-8.2)
[2023-04-18] MEDS ORDERED: cefTRIAXone SOD 2 GM in D5W MINI-BAG PLUS 50 ML IV ONE (23:40)
[2023-04-19] VITALS (9 sets, daily range): BP systolic 90–125; BP diastolic 57–67; TEMP 97.8–101.8; O2SAT 95–99
[2023-04-19] MEDS ORDERED: LINEZOLID 600 MG in IV 1 EA IV ONE (00:30)
[2023-04-19] MEDS ORDERED: KETO10TAB PO (00:43)
[2023-04-19] MEDS ORDERED: METF-839 PO (00:43)
[2023-04-19] MEDS ORDERED: IBUP-1764 PO (00:43)
[2023-04-19] MEDS ORDERED: ACET-897 PO (00:43)
[2023-04-19] MEDS ORDERED: OXYB5TAB10 PO (00:43)
[2023-04-19] MEDS ORDERED: SYNT75TA PO (00:43)
[2023-04-19] MEDS ORDERED: HOME MED LIST COMPLETE! XX SCH (00:45)
[2023-04-19] MEDS ORDERED: HYDROMORPHONE HCL 0.5 MG/ 0.5 ML SYRINGE IV PRN (01:10)
[2023-04-19] MEDS ORDERED: SODIUM CHLORIDE 0.9% 1000ML IV SCH (01:10)
[2023-04-19] MEDS ORDERED: MECLIZINE 25 MG TABLET PO ONE (01:10)
[2023-04-19] MEDS ORDERED: GLUCOSE 4GM CHEW TABLET PO PRN (01:15)
[2023-04-19] MEDS ORDERED: GLUCAGON INJ 1MG VIAL SC PRN (01:15)
[2023-04-19] MEDS ORDERED: DEXTROSE 50% 50ML SYRINGE IV PRN (01:15)
[2023-04-19 01:26] LABS: CK-MB VALUE MASS < 1.0 NG/ML (<3.6)
[2023-04-19 01:27] LABS: CPK CREATINE PHOSPHOKINASE 28 U/L (34-145); MB/CK RELATIVE INDEX 3.57 (< OR =4)
[2023-04-19] MEDS ORDERED: ACETAMINOPHEN 325 MG TAB As Ordered ONE (02:45)
[2023-04-19] MEDS: ACETAMINOPHEN TAB 650MG DOSE (2X325MG) PO PRN ×5 (02:47→20:55)
[2023-04-19] MEDS ORDERED: ACETAMINOPHEN 1000MG 100ML IV BAG IV ONE (03:10)
[2023-04-19] MEDS ORDERED: KETOROLAC 30 MG/ML 1ML VIAL IV ONE (06:50)
[2023-04-19 06:56] LABS: BLOOD UREA NITROGEN 10 MG/DL (9-23); CALCIUM LEVEL 7.7 MG/DL (8.5-10.1); CARBON DIOXIDE LEVEL 24 MMOL/L (20-31); CHLORIDE LEVEL 106 MMOL/L (98-107); GLOMERULAR FILTRATION RATE > 60.0 (>58); GLUCOSE, FASTING 124 MG/DL (60-100); POTASSIUM SERUM 3.8 MMOL/L (3.5-5.1); SODIUM LEVEL 139 MMOL/L (136-145)
[2023-04-19 06:58] LABS: THYROID STIMULATING HORMONE 1.019 uIU/ML (0.55-4.78)
[2023-04-19] MEDS: INSULIN LISPRO (NovoLOG) PER UNIT SC SCH ×4 (07:30→20:58)
[2023-04-19] MEDS: IBUPROFEN 800 MG TAB PO PRN (12:58)
[2023-04-19] MEDS ORDERED: oxyBUTYnin 5 MG TAB PO PRN (19:45)
[2023-04-19] MEDS: SERTRALINE HCL 50 MG TAB PO SCH (20:54)
[2023-04-19] MEDS: cefTRIAXone SOD 1 GM in D5W MINI-BAG PLUS 50 ML IV SCH (20:55)
[2023-04-20] VITALS (9 sets, daily range): BP systolic 98–132; BP diastolic 53–86; TEMP 97–101.9; O2SAT 97–99
[2023-04-20] MEDS: IBUPROFEN 800 MG TAB PO PRN ×2 (00:57→15:27)
[2023-04-20] MEDS: ACETAMINOPHEN TAB 650MG DOSE (2X325MG) PO PRN ×4 (01:56→20:26)
[2023-04-20] MEDS ORDERED: LEVOTHYROXINE 75MCG TABLET (0.075MG) PO SCH (06:00)
[2023-04-20 06:19] LABS: BASO # 0.1 10^3/uL (0.0-0.2); BASO % 0.3 % (0.0-1.0); EOS % 0.2 % (0.0-3.0); HEMATOCRIT 38.7 % (36.0-47.0); HEMOGLOBIN 12.6 g/dl (12.0-15.5); LYMPH # 1.3 10^3/uL (1.5-5.0); LYMPH % 8.4 % (24.0-44.0); MEAN CORPUSCULAR HEMOGLOBIN 29.2 pg (27.0-33.0); MEAN CORPUSCULAR HGB CONC 32.6 g/dl (32.0-36.5); MEAN CORPUSCULAR VOLUME 89.6 fl (80.0-96.0); MONO % 11.8 % (2.0-8.0); NEUTROPHILS # 11.9 10^3/uL (1.5-8.5); NEUTROPHILS % 78.7 % (36.0-66.0); PLATELET COUNT, AUTOMATED 252 10^3/uL (150-450); RED BLOOD COUNT 4.32 10^6/uL (4.00-5.40); WHITE BLOOD COUNT 15.1 10^3/uL (4.0-10.0)
[2023-04-20 06:44] LABS: BLOOD UREA NITROGEN 10 MG/DL (9-23); CALCIUM LEVEL 7.9 MG/DL (8.5-10.1); CARBON DIOXIDE LEVEL 25 MMOL/L (20-31); CHLORIDE LEVEL 106 MMOL/L (98-107); CREATININE FOR GFR 0.88 MG/DL (0.55-1.30); GLOMERULAR FILTRATION RATE > 60.0 (>58); GLUCOSE, FASTING 163 MG/DL (60-100); POTASSIUM SERUM 3.4 MMOL/L (3.5-5.1); SODIUM LEVEL 139 MMOL/L (136-145)
[2023-04-20 06:48] LABS: MONO # 1.8 10^3/uL (0.0-0.8)
[2023-04-20] MEDS ORDERED: FUROSEMIDE 20 MG TAB PO SCH (09:00)
[2023-04-20] MEDS: INSULIN LISPRO (NovoLOG) PER UNIT SC SCH ×4 (09:25→20:45)
[2023-04-20] MEDS ORDERED: NS 1,000 ML IV ONE (18:05)
[2023-04-20] MEDS: SERTRALINE HCL 50 MG TAB PO SCH (20:25)
[2023-04-20] MEDS: cefTRIAXone SOD 1 GM in D5W MINI-BAG PLUS 50 ML IV SCH (20:26)
[2023-04-21] VITALS (7 sets, daily range): BP systolic 96–162; BP diastolic 59–98; TEMP 97.2–100.6; O2SAT 94–98
[2023-04-21 05:54] LABS: BASO % 0.4 % (0.0-1.0); EOS # 0.2 10^3/uL (0.0-0.5); EOS % 1.8 % (0.0-3.0); HEMATOCRIT 36.2 % (36.0-47.0); HEMOGLOBIN 11.6 g/dl (12.0-15.5); LYMPH # 2.2 10^3/uL (1.5-5.0); LYMPH % 20.1 % (24.0-44.0); MEAN CORPUSCULAR HEMOGLOBIN 28.7 pg (27.0-33.0); MEAN CORPUSCULAR VOLUME 89.6 fl (80.0-96.0); MONO # 1.3 10^3/uL (0.0-0.8); MONO % 12.1 % (2.0-8.0); NEUTROPHILS % 64.9 % (36.0-66.0); PLATELET COUNT, AUTOMATED 260 10^3/uL (150-450); RED BLOOD COUNT 4.04 10^6/uL (4.00-5.40); WHITE BLOOD COUNT 10.7 10^3/uL (4.0-10.0)
[2023-04-21 06:19] LABS: C REACTIVE PROTEIN QUANTITATIV 20.5 MG/DL (<1.0)
[2023-04-21 06:20] LABS: BLOOD UREA NITROGEN 8 MG/DL (9-23); CALCIUM LEVEL 8.1 MG/DL (8.5-10.1); CARBON DIOXIDE LEVEL 25 MMOL/L (20-31); CHLORIDE LEVEL 109 MMOL/L (98-107); CREATININE FOR GFR 0.73 MG/DL (0.55-1.30); GLOMERULAR FILTRATION RATE > 60.0 (>58); GLUCOSE, FASTING 107 MG/DL (60-100); POTASSIUM SERUM 3.8 MMOL/L (3.5-5.1); SODIUM LEVEL 142 MMOL/L (136-145)
[2023-04-21 06:26] LABS: PROCALCITONIN 0.45 ng/ml
[2023-04-21] MEDS ORDERED: BACI1CAP PO (07:37)
[2023-04-21] MEDS ORDERED: LEVO1TAB40 PO (07:37)
[2023-04-21] MEDS ORDERED: ALCOPAD25 TOP (07:42)
[2023-04-21] MEDS ORDERED: LANC30MI XX (07:42)
[2023-04-21] MEDS ORDERED: GLUC1TES2 XX (07:42)
[2023-04-21] MEDS ORDERED: BLOOKIT21 XX (07:42)
[2023-04-21] MEDS ORDERED: INSUHUMDS SC (07:42)
[2023-04-21] MEDS ORDERED: PEN1MIS21 SC (07:42)
[2023-04-21] MEDS: INSULIN LISPRO (NovoLOG) PER UNIT SC SCH ×4 (07:46→20:20)
[2023-04-21] MEDS ORDERED: LevoFLOXacin 750 MG TABLET PO ONE (11:00)
[2023-04-21] MEDS ORDERED: PROMETHAZINE 25MG/ML 1ML VIAL IV PRN (13:15)
[2023-04-21] MEDS ORDERED: NS 1,000 ML IV SCH (13:30)
[2023-04-21] MEDS ORDERED: cefTRIAXone SOD 1 GM in D5W MINI-BAG PLUS 50 ML IV SCH (14:00)
[2023-04-21] MEDS ORDERED: VANCOMYCIN HCL 1,000 MG, VIAL MATE ADAPTER 1 EACH in D5W 250 ML IV ONE (14:00)
[2023-04-21] MEDS: ACETAMINOPHEN TAB 650MG DOSE (2X325MG) PO PRN (14:23)
[2023-04-21] MEDS: cefTRIAXone SOD 1 GM in D5W MINI-BAG PLUS 50 ML IV SCH (17:30)
[2023-04-21] MEDS: VANCOMYCIN HCL 1,000 MG, VIAL MATE ADAPTER 1 EACH in D5W 250 ML IV SCH (20:20)
[2023-04-21] MEDS: SERTRALINE 100 MG TAB PO SCH (20:20)
[2023-04-22 06:00] VITALS: BP 125/76; TEMP 99; O2SAT 95
[2023-04-22 06:51] LABS: BASO # 0.1 10^3/uL (0.0-0.2); BASO % 0.5 % (0.0-1.0); EOS # 0.2 10^3/uL (0.0-0.5); EOS % 2.2 % (0.0-3.0); HEMATOCRIT 34.9 % (36.0-47.0); HEMOGLOBIN 11.6 g/dl (12.0-15.5); LYMPH # 2.2 10^3/uL (1.5-5.0); LYMPH % 24.3 % (24.0-44.0); MEAN CORPUSCULAR HEMOGLOBIN 29.3 pg (27.0-33.0); MEAN CORPUSCULAR HGB CONC 33.2 g/dl (32.0-36.5); MEAN CORPUSCULAR VOLUME 88.1 fl (80.0-96.0); MONO # 0.9 10^3/uL (0.0-0.8); MONO % 9.9 % (2.0-8.0); NEUTROPHILS # 5.7 10^3/uL (1.5-8.5); NEUTROPHILS % 62.7 % (36.0-66.0); PLATELET COUNT, AUTOMATED 332 10^3/uL (150-450); RED BLOOD COUNT 3.96 10^6/uL (4.00-5.40); WHITE BLOOD COUNT 9.1 10^3/uL (4.0-10.0)
[2023-04-22 07:15] LABS: BLOOD UREA NITROGEN 9 MG/DL (9-23); CALCIUM LEVEL 8.2 MG/DL (8.5-10.1); CARBON DIOXIDE LEVEL 26 MMOL/L (20-31); CHLORIDE LEVEL 107 MMOL/L (98-107); CREATININE FOR GFR 0.82 MG/DL (0.55-1.30); GLOMERULAR FILTRATION RATE > 60.0 (>58); GLUCOSE, FASTING 115 MG/DL (60-100); POTASSIUM SERUM 3.9 MMOL/L (3.5-5.1); SODIUM LEVEL 140 MMOL/L (136-145)
[2023-04-22] MEDS: INSULIN LISPRO (NovoLOG) PER UNIT SC SCH ×4 (09:48→21:00)
[2023-04-22] MEDS: VANCOMYCIN HCL 1,000 MG, VIAL MATE ADAPTER 1 EACH in D5W 250 ML IV SCH ×2 (09:49→20:07)
[2023-04-22 14:00] VITALS: BP 146/87; TEMP 98.4; O2SAT 98
[2023-04-22 17:15] LABS: PROCALCITONIN 0.27 ng/ml
[2023-04-22 17:35] LABS: ERYTHROCYTE SEDIMENTATION RATE 72 mm/hr (0-20)
[2023-04-22] MEDS: LACTOBACILLUS ACIDOPHILUS CAP (BACID) PO SCH ×2 (18:17→20:07)
[2023-04-22] MEDS: cefTRIAXone SOD 1 GM in D5W MINI-BAG PLUS 50 ML IV SCH (18:18)
[2023-04-22] MEDS: SERTRALINE 100 MG TAB PO SCH (20:07)
[2023-04-22 20:58] VITALS: BP 126/76; TEMP 97.9; O2SAT 94
[2023-04-22] MEDS ORDERED: HYALURONIDASE 150UNIT/ML 1ML VIAL (AMPHADASE) SC ONE (22:35)
[2023-04-22] MEDS ORDERED: HYALURONIDASE (150 UNIT/ML) SQ (pinwheel) SQ ONE (22:35)
[2023-04-23 06:00] VITALS: BP 144/76; TEMP 97.5; O2SAT 96
[2023-04-23 07:17] LABS: BASO # 0.1 10^3/uL (0.0-0.2); BASO % 0.8 % (0.0-1.0); EOS # 0.3 10^3/uL (0.0-0.5); EOS % 3.1 % (0.0-3.0); HEMATOCRIT 34.2 % (36.0-47.0); HEMOGLOBIN 11.1 g/dl (12.0-15.5); LYMPH # 2.1 10^3/uL (1.5-5.0); LYMPH % 23.7 % (24.0-44.0); MEAN CORPUSCULAR HEMOGLOBIN 28.7 pg (27.0-33.0); MEAN CORPUSCULAR HGB CONC 32.5 g/dl (32.0-36.5); MEAN CORPUSCULAR VOLUME 88.4 fl (80.0-96.0); MONO # 0.8 10^3/uL (0.0-0.8); MONO % 9.2 % (2.0-8.0); NEUTROPHILS # 5.5 10^3/uL (1.5-8.5); NEUTROPHILS % 62.1 % (36.0-66.0); PLATELET COUNT, AUTOMATED 352 10^3/uL (150-450); RED BLOOD COUNT 3.87 10^6/uL (4.00-5.40); WHITE BLOOD COUNT 8.8 10^3/uL (4.0-10.0)
[2023-04-23 07:27] LABS: ERYTHROCYTE SEDIMENTATION RATE 53 mm/hr (0-20)
[2023-04-23] MEDS ORDERED: CIPR-249 PO (07:35)
[2023-04-23 07:37] LABS: BLOOD UREA NITROGEN 8 MG/DL (9-23); CALCIUM LEVEL 7.9 MG/DL (8.5-10.1); CARBON DIOXIDE LEVEL 26 MMOL/L (20-31); CHLORIDE LEVEL 108 MMOL/L (98-107); CREATININE FOR GFR 0.75 MG/DL (0.55-1.30); GLOMERULAR FILTRATION RATE > 60.0 (>58); GLUCOSE, FASTING 116 MG/DL (60-100); POTASSIUM SERUM 3.9 MMOL/L (3.5-5.1); SODIUM LEVEL 141 MMOL/L (136-145)
[2023-04-23] MEDS: INSULIN LISPRO (NovoLOG) PER UNIT SC SCH ×2 (09:20→12:00)
[2023-04-23] MEDS: LACTOBACILLUS ACIDOPHILUS CAP (BACID) PO SCH ×2 (09:20→13:07)
[2023-04-23] MEDS: VANCOMYCIN HCL 1,000 MG, VIAL MATE ADAPTER 1 EACH in D5W 250 ML IV SCH (11:47)
[2023-04-23] MEDS: cefTRIAXone SOD 1 GM in D5W MINI-BAG PLUS 50 ML IV SCH (15:59)
== END 2023-04-23 17:45 | disposition home or self-care (01) | DRG 720 ==
LOC: M ED 19:50 → M ED INP 04-19 01:06 → M PED 04-19 04:00 → M MS5PR 04-21 15:10
PROVIDERS: ADMIT Internal Medicine; ATTEND General Practice
DX: A41.9 Sepsis, unspecified organism (principal); N10 Acute pyelonephritis; K76.0 Fatty (change of) liver, not elsewhere classified; E11.9 Type 2 diabetes mellitus without complications; H81.10 Benign paroxysmal vertigo, unspecified ear; E03.9 Hypothyroidism, unspecified; M47.892 Other spondylosis, cervical region; I87.8 Other specified disorders of veins; E55.9 Vitamin D deficiency, unspecified; F32.A Depression, unspecified; F41.0 Panic disorder [episodic paroxysmal anxiety]; F17.210 Nicotine dependence, cigarettes, uncomplicated; Z96.0 Presence of urogenital implants; Z90.79 Acquired absence of other genital organ(s); Z79.890 Hormone replacement therapy; Z79.84 Long term (current) use of oral hypoglycemic drugs; Z79.899 Other long term (current) drug therapy; Z88.0 Allergy status to penicillin; Z88.2 Allergy status to sulfonamides; Z88.5 Allergy status to narcotic agent; Z88.8 Allergy status to other drugs, medicaments and biological substances; Z20.822 Contact with and (suspected) exposure to COVID-19

== ENCOUNTER → 2023-06-14 | Outpatient (CLI) | payer OTHER ==
[~2023-06-14] MED LIST changes: +ACET-897 PO; +ACET325C5 PO; +ALCOPAD25 TOP; +BACI1CAP PO; +BLOOKIT21 XX; +GLUC1TES2 XX; +IBUP-1422 PO; +IBUP-1764 PO; +INSUHUMDS SC; +LANC30MI XX; -LINEZOLID 600 MG in IV 1 EA IV ONE; +METF-839 PO; +PEN1MIS21 SC; +SYNT75TA PO
[2023-06-14 11:05] LABS: BASO % 0.6 % (0.0-1.0); EOS # 0.2 10^3/uL (0.0-0.5); EOS % 2.4 % (0.0-3.0); HEMATOCRIT 38.7 % (36.0-47.0); HEMOGLOBIN 12.8 g/dl (12.0-15.5); LYMPH # 1.7 10^3/uL (1.5-5.0); LYMPH % 24.4 % (24.0-44.0); MEAN CORPUSCULAR HEMOGLOBIN 29.1 pg (27.0-33.0); MEAN CORPUSCULAR HGB CONC 33.1 g/dl (32.0-36.5); MONO # 0.7 10^3/uL (0.0-0.8); MONO % 9.8 % (2.0-8.0); NEUTROPHILS # 4.4 10^3/uL (1.5-8.5); NEUTROPHILS % 62.4 % (36.0-66.0); PLATELET COUNT, AUTOMATED 350 10^3/uL (150-450)
[2023-06-14 11:18] LABS: ERYTHROCYTE SEDIMENTATION RATE 17 mm/hr (0-30)
[2023-06-14 11:23] LABS: HEMOGLOBIN A1c 6.3 % (4.0-6.0)
[2023-06-14 11:35] LABS: ALBUMIN 3.9 G/DL (3.2-5.2); ALKALINE PHOSPHATASE 90 U/L (46-116); ALT/SGPT 26 U/L (7.0-40); AST/SGOT 16 U/L (<34); BILIRUBIN,TOTAL 0.4 MG/DL (0.3-1.2); BLOOD UREA NITROGEN 15 MG/DL (9-23); CALCIUM LEVEL 9.4 MG/DL (8.5-10.1); CARBON DIOXIDE LEVEL 25 MMOL/L (20-31); CHLORIDE LEVEL 109 MMOL/L (98-107); CHOLESTEROL LEVEL 177 MG/DL (<200); CHOLESTEROL RISK RATIO 4.59 (<5); CREATININE FOR GFR 0.84 MG/DL (0.55-1.30); GLOMERULAR FILTRATION RATE > 60.0 (>51); GLUCOSE, FASTING 112 MG/DL (60-100); HDL CHOLESTEROL 38.5 MG/DL (>40); LDL CHOLESTEROL 114.7 MG/DL (<100); NON-HDL-C 138.5 MG/DL; POTASSIUM SERUM 4.4 MMOL/L (3.5-5.1); SODIUM LEVEL 143 MMOL/L (136-145); TRIGLYCERIDES LEVEL 119 MG/DL (<150)
[2023-06-14 11:36] LABS: FERRITIN 33.8 NG/ML (7.3-270.7); PTH INTACT 63.8 PG/ML (18.5-88.0); TOTAL T3 109.6 NG/DL (60.0-181.0)
[2023-06-14 11:37] LABS: FREE T4 0.74 NG/DL (0.89-1.76); VITAMIN B12 LEVEL 277 PG/ML (211-911)
== END ==
LOC: M LAB 10:30
PROVIDERS: ATTEND Physician Assistant
DX: R10.31 Right lower quadrant pain (principal); Z87.442 Personal history of urinary calculi; E03.9 Hypothyroidism, unspecified; Z13.220 Encounter for screening for lipoid disorders

== ENCOUNTER 2023-08-05 07:10 | Emergency (ER) | payer OTHER ==
[~2023-08-05] VITALS: Ht 162.6 cm; Wt 90.9 kg
[~2023-08-05 07:10] MED LIST changes: +ASPE4PAD TOP; +METH-1165 PO
[2023-08-05 07:11] VITALS: BP 124/75; TEMP 98.1; O2SAT 98
== END 2023-08-05 10:12 | disposition home or self-care (01) ==
LOC: M ED 07:10
DX: S93.492A Sprain of other ligament of left ankle, initial encounter (principal); X50.0XXA Overexertion from strenuous movement or load, initial encounter; E11.9 Type 2 diabetes mellitus without complications; E07.9 Disorder of thyroid, unspecified; Z86.79 Personal history of other diseases of the circulatory system; Y92.9 Unspecified place or not applicable; Y93.9 Activity, unspecified; Y99.0 Civilian activity done for income or pay; Z79.4 Long term (current) use of insulin; Z79.1 Long term (current) use of non-steroidal anti-inflammatories (NSAID); Z79.899 Other long term (current) drug therapy

== ENCOUNTER → 2023-09-18 | Outpatient (CLI) | payer OTHER ==
[~2023-09-18] MED LIST changes: -OXYB5TAB10 PO; +OXYB5TAB11 PO; +PEN-308 SC; -PEN1MIS21 SC
[2023-09-18 18:12] LABS: BASO # 0.1 10^3/uL (0.0-0.2); BASO % 0.7 % (0.0-1.0); EOS # 0.3 10^3/uL (0.0-0.5); EOS % 2.3 % (0.0-3.0); HEMATOCRIT 39.8 % (36.0-47.0); LYMPH # 2.4 10^3/uL (1.5-5.0); LYMPH % 22.7 % (24.0-44.0); MEAN CORPUSCULAR HEMOGLOBIN 28.8 pg (27.0-33.0); MEAN CORPUSCULAR HGB CONC 32.7 g/dl (32.0-36.5); MEAN CORPUSCULAR VOLUME 88.2 fl (80.0-96.0); MONO # 1.1 10^3/uL (0.0-0.8); MONO % 10.3 % (2.0-8.0); NEUTROPHILS # 6.9 10^3/uL (1.5-8.5); NEUTROPHILS % 63.6 % (36.0-66.0); PLATELET COUNT, AUTOMATED 388 10^3/uL (150-450); RED BLOOD COUNT 4.51 10^6/uL (4.00-5.40); WHITE BLOOD COUNT 10.8 10^3/uL (4.0-10.0)
[2023-09-18 18:31] LABS: HEMOGLOBIN A1c 6.3 % (4.0-6.0)
[2023-09-18 18:33] LABS: ALBUMIN 3.8 G/DL (3.2-5.2); ALKALINE PHOSPHATASE 94 U/L (46-116); ALT/SGPT 31 U/L (7.0-40); AST/SGOT 23 U/L (<34); BILIRUBIN,TOTAL 0.4 MG/DL (0.3-1.2); BLOOD UREA NITROGEN 17 MG/DL (9-23); CALCIUM LEVEL 9.3 MG/DL (8.5-10.1); CARBON DIOXIDE LEVEL 26 MMOL/L (20-31); CHLORIDE LEVEL 104 MMOL/L (98-107); CREATININE FOR GFR 0.87 MG/DL (0.55-1.30); GLOMERULAR FILTRATION RATE > 60.0 (>51); GLUCOSE, FASTING 99 MG/DL (60-100); POTASSIUM SERUM 4.4 MMOL/L (3.5-5.1); SODIUM LEVEL 138 MMOL/L (136-145); TOTAL PROTEIN 7.1 G/DL (5.7-8.2)
[2023-09-18 18:34] LABS: FREE T4 0.75 NG/DL (0.89-1.76); THYROID STIMULATING HORMONE 1.463 uIU/ML (0.55-4.78)
== END ==
LOC: M PLALAB 15:23
PROVIDERS: ATTEND Physician Assistant
DX: E11.9 Type 2 diabetes mellitus without complications (principal); E03.9 Hypothyroidism, unspecified; M79.89 Other specified soft tissue disorders

== ENCOUNTER → 2023-10-18 | Outpatient (REF) | LOC: M EMP 07:39 | PROVIDERS: ATTEND Family Medicine | DX: Z11.52 Encounter for screening for COVID-19 (principal) ==

== ENCOUNTER → 2024-02-02 | Outpatient (CLI) | payer OTHER ==
[~2024-02-02] MED LIST changes: -OXYB5TAB11 PO; +OXYB5TAB14 PO
[2024-02-02 10:55] LABS: BASO % 0.5 % (0.0-1.0); EOS # 0.2 10^3/uL (0.0-0.5); EOS % 2.2 % (0.0-3.0); HEMATOCRIT 42.1 % (36.0-47.0); HEMOGLOBIN 13.9 g/dl (12.0-15.5); LYMPH # 2.1 10^3/uL (1.5-5.0); LYMPH % 26.3 % (24.0-44.0); MEAN CORPUSCULAR HEMOGLOBIN 28.5 pg (27.0-33.0); MEAN CORPUSCULAR VOLUME 86.3 fl (80.0-96.0); MONO # 0.7 10^3/uL (0.0-0.8); MONO % 9.4 % (2.0-8.0); NEUTROPHILS # 4.8 10^3/uL (1.5-8.5); NEUTROPHILS % 61.1 % (36.0-66.0); PLATELET COUNT, AUTOMATED 366 10^3/uL (150-450); RED BLOOD COUNT 4.88 10^6/uL (4.00-5.40); WHITE BLOOD COUNT 7.9 10^3/uL (4.0-10.0)
[2024-02-02 11:08] LABS: HEMOGLOBIN A1c 5.9 % (4.0-6.0)
[2024-02-02 11:30] LABS: ALKALINE PHOSPHATASE 86 U/L (46-116); ALT/SGPT 17 U/L (7.0-40); AST/SGOT 12 U/L (<34); BILIRUBIN,TOTAL 0.8 MG/DL (0.3-1.2); BLOOD UREA NITROGEN 11 MG/DL (9-23); CALCIUM LEVEL 9.6 MG/DL (8.5-10.1); CARBON DIOXIDE LEVEL 26 MMOL/L (20-31); CHLORIDE LEVEL 104 MMOL/L (98-107); CREATININE FOR GFR 0.92 MG/DL (0.55-1.30); GLOMERULAR FILTRATION RATE > 60.0 (>51); GLUCOSE, FASTING 115 MG/DL (60-100); POTASSIUM SERUM 3.7 MMOL/L (3.5-5.1); SODIUM LEVEL 140 MMOL/L (136-145); TOTAL PROTEIN 6.9 G/DL (5.7-8.2)
[2024-02-02 11:33] LABS: THYROID STIMULATING HORMONE 3.584 uIU/ML (0.55-4.78)
== END ==
LOC: M PLALAB 07:35
PROVIDERS: ATTEND Physician Assistant
DX: E11.9 Type 2 diabetes mellitus without complications (principal); E03.9 Hypothyroidism, unspecified; D72.829 Elevated white blood cell count, unspecified; R60.0 Localized edema

== ENCOUNTER → 2024-08-19 | Outpatient (REF) ==
[~2024-08-19] MED LIST changes: +DOXY-440 PO; -DOXY-444 PO; +ONDA-282 PO; -ONDA4TAB6 PO
== END ==
LOC: M EMP 09:39
PROVIDERS: ATTEND Family Medicine
DX: Z20.822 Contact with and (suspected) exposure to COVID-19 (principal)

== ENCOUNTER 2025-01-12 11:32 | Emergency (ER) | payer OTHER ==
[~2025-01-12] VITALS: Ht 160 cm; Wt 76.4 kg
[~2025-01-12 11:32] MED LIST changes: -CIPR250T26 PO
[2025-01-12 12:18] LABS: BASO % 0.6 % (0.0-1.0); EOS # 0.2 10^3/uL (0.0-0.5); EOS % 2.6 % (0.0-3.0); HEMOGLOBIN 13.9 g/dl (12.0-15.5); LYMPH # 1.6 10^3/uL (1.5-5.0); LYMPH % 24.5 % (24.0-44.0); MEAN CORPUSCULAR HEMOGLOBIN 28.8 pg (27.0-33.0); MEAN CORPUSCULAR HGB CONC 33.1 g/dl (32.0-36.5); MEAN CORPUSCULAR VOLUME 87.1 fl (80.0-96.0); MONO # 0.5 10^3/uL (0.0-0.8); MONO % 8.1 % (2.0-8.0); NEUTROPHILS # 4.3 10^3/uL (1.5-8.5); NEUTROPHILS % 64.2 % (36.0-66.0); PLATELET COUNT, AUTOMATED 335 10^3/uL (150-450); RED BLOOD COUNT 4.82 10^6/uL (4.00-5.40); WHITE BLOOD COUNT 6.6 10^3/uL (4.0-10.0)
[2025-01-12 12:45] LABS: BLOOD UREA NITROGEN 17 MG/DL (9-23); CALCIUM LEVEL 9.2 MG/DL (8.5-10.1); CARBON DIOXIDE LEVEL 28 MMOL/L (20-31); CHLORIDE LEVEL 108 MMOL/L (98-107); CREATININE FOR GFR 0.93 MG/DL (0.55-1.30); GLOMERULAR FILTRATION RATE > 60.0 (>51); GLUCOSE, FASTING 109 MG/DL (60-100); POTASSIUM SERUM 4.3 MMOL/L (3.5-5.1); SODIUM LEVEL 145 MMOL/L (136-145)
[2025-01-12] MEDS: KETOROLAC 30 MG/ML 1ML VIAL IV ONE (13:08)
[2025-01-12] MEDS: NS (Normal Saline) 0.9% 1,000 ML IV ONE (13:09)
[2025-01-12] MEDS: ONDANSETRON 4MG 2ML VIAL IV ONE (13:33)
[2025-01-12 15:06] LABS: KETONE, URINE AUTO RFX NEGATIVE (NEGATIVE); LEUKOCYTE ESTERASE UR AUTO RFX 2+ (NEGATIVE); MUCUS, URINE RFX SMALL (NEGATIVE); NITRITE, URINE AUTO RFX NEGATIVE (NEGATIVE); RBC, URINE AUTO RFX 0 /HPF (0-3); SQUAM EPITHELIAL CELL UR AURFX 2 /HPF (0-6); WBC, URINE AUTO RFX 8 /HPF (0-3)
[2025-01-12] MEDS ORDERED: KETO10TAB PO (15:27)
[2025-01-12] MEDS ORDERED: CIPR250T26 PO (15:27)
[2025-01-12 15:36] VITALS: BP 100/61; TEMP 98.2; O2SAT 97
== END 2025-01-12 15:38 | disposition home or self-care (01) ==
LOC: M ED 11:32
DX: N39.0 Urinary tract infection, site not specified (principal); Z87.442 Personal history of urinary calculi; Z79.899 Other long term (current) drug therapy; Z88.0 Allergy status to penicillin; Z88.2 Allergy status to sulfonamides; Z88.5 Allergy status to narcotic agent; Z88.8 Allergy status to other drugs, medicaments and biological substances; Z88.4 Allergy status to anesthetic agent
CPT/HCPCS: 74176; 80048; 81001; 83605; 85025; 87088; 87186; 96361; 96374; 96375; 99283; J1885; J2405

== ENCOUNTER → 2025-01-12 | Outpatient (REF) | payer OTHER ==
[~2025-01-12] MED LIST changes: +CIPR250T26 PO
[2025-01-12 19:01] LABS: APPEARANCE, URINE CLOUDY (CLEAR); BACTERIA, URINE AUTO 1+ (NEGATIVE); BILIRUBIN, URINE AUTO NEGATIVE (NEGATIVE); BLOOD, URINE BLOOD NEGATIVE (NEGATIVE); CALCIUM OXALATE CRYSTALS SMALL; COLOR, URINE AMBER (YELLOW); GLUCOSE, URINE (UA) AUTO NEGATIVE (NEGATIVE); KETONE, URINE AUTO NEGATIVE (NEGATIVE); LEUKOCYTE ESTERASE, URINE AUTO 2+ (NEGATIVE); MUCUS, URINE LARGE (NEGATIVE); NITRITE, URINE AUTO POSITIVE (NEGATIVE); PROTEIN, URINE AUTO 1+ mg/dL (NEGATIVE); RBC, URINE AUTO 1 /HPF (0-3); SPECIFIC GRAVITY URINE AUTO 1.029 (1.002-1.035); SQUAMOUS EPITHELIAL CELL UR AU 3 /HPF (0-6); UROBILINOGEN, URINE AUTO 0.2 mg/dL (0.0-2.0); WBC, URINE AUTO 34 /HPF (0-3)
== END ==
LOC: M LAB REF 18:12
PROVIDERS: ATTEND Physician Assistant Medical
DX: N39.0 Urinary tract infection, site not specified (principal)

== ENCOUNTER → 2025-05-02 | Outpatient (RCR) ==
[~2025-05-02] MED LIST changes: +CIPR250T26 PO; -FLOM0.4C39 PO; +TAMS-18 PO
== END ==
LOC: M EMPSSV 04-07 08:08
PROVIDERS: ATTEND Family Medicine
DX: Z11.52 Encounter for screening for COVID-19 (principal)

== ENCOUNTER → 2025-07-03 | Outpatient (RCR) ==
[~2025-07-03] MED LIST changes: -IBUP-1022 PO; +IBUP600T42 PO
== END ==
LOC: M EMPSKH 06-29 07:20
PROVIDERS: ATTEND Family Medicine
DX: Z20.828 Contact with and (suspected) exposure to other viral communicable diseases (principal)

== ENCOUNTER → 2025-08-20 | Outpatient (CLI) | payer OTHER ==
[2025-08-20 17:19] LABS: ALT/SGPT 19.0 U/L (7.0-40); AST/SGOT 18.0 U/L (<34); CALCIUM LEVEL 9.8 MG/DL (8.5-10.1); CARBON DIOXIDE LEVEL 29.0 MMOL/L (20-31); CHLORIDE LEVEL 104.0 MMOL/L (98-107); CHOLESTEROL LEVEL 262.0 MG/DL (<200); CHOLESTEROL RISK RATIO 5.68 (<5); CREATININE FOR GFR 0.97 MG/DL (0.55-1.30); GLOMERULAR FILTRATION RATE 70.3 (>51); LDL CHOLESTEROL 171.9 MG/DL (<100); MAGNESIUM LEVEL 2.2 MG/DL (1.8-2.4); NON-HDL-C 215.9 MG/DL; POTASSIUM SERUM 4.8 MMOL/L (3.5-5.1); SODIUM LEVEL 143.0 MMOL/L (136-145); TRIGLYCERIDES LEVEL 220.0 MG/DL (<150)
[2025-08-20 17:20] LABS: FREE T4 0.86 NG/DL (0.89-1.76)
[2025-08-20 17:21] LABS: BASO # 0.1 10^3/uL (0.0-0.2); BASO % 0.7 % (0.0-1.0); EOS # 0.2 10^3/uL (0.0-0.5); EOS % 2.3 % (0.0-3.0); LYMPH # 2.0 10^3/uL (1.5-5.0); LYMPH % 27.8 % (24.0-44.0); MONO # 0.7 10^3/uL (0.0-0.8); MONO % 9.2 % (2.0-8.0); NEUTROPHILS # 4.3 10^3/uL (1.5-8.5); NEUTROPHILS % 59.7 % (36.0-66.0); PLATELET COUNT, AUTOMATED 346 10^3/uL (150-450)
[2025-08-20 17:40] LABS: CREATININE, URINE 167.4 MG/DL; MALB URINE SIEMENS 4.0 MG/L; MAU/CREAT RATIO 2.3 MCG/MG (0.0-30.0)
[2025-08-20 18:14] LABS: ESTIMATED AVERAGE GLUCOSE 120.0 MG/DL (60-110)
== END ==
LOC: M PLALAB 14:58
PROVIDERS: ATTEND Nurse Practitioner Family
DX: E11.9 Type 2 diabetes mellitus without complications (principal); D72.829 Elevated white blood cell count, unspecified; Z13.220 Encounter for screening for lipoid disorders; M79.89 Other specified soft tissue disorders; E03.9 Hypothyroidism, unspecified